=== PATIENT | female | born 1970 | race Caucasian/White ===

== ENCOUNTER 2020-03-09 08:05 | Outpatient (REF) | payer OTHER, SELFPAY ==
[2020-03-09 14:01] LABS: CT PCR NOT DETECTED (Not Detect.); NG PCR NOT DETECTED (Not Detect.)
[2020-03-10 13:32] LABS: BV Int Neg Control Negative (Negative); BV Int Pos Control Positive (Positive)
[2020-03-11 18:27] LABS: HPV mRNA E6/E7 Not Detected (Not Detected)
== END 2020-03-09 08:06 | disposition home or self-care (01) ==
LOC: HO.LAB 08:05
PROVIDERS: Visit Provider Obstetrics & Gynecology
DX: Z01.419 Encounter for gynecological examination (general) (routine) without abnormal findings (principal); Z11.3 Encounter for screening for infections with a predominantly sexual mode of transmission; Z11.51 Encounter for screening for human papillomavirus (HPV); N95.0 Postmenopausal bleeding; N95.1 Menopausal and female climacteric states
CPT/HCPCS: 87480; 87491; 87510; 87591; 87624; 87660; 88142

== ENCOUNTER 2020-03-17 13:29 | Outpatient (REF) | payer OTHER, SELFPAY ==
--- NOTE | 2020-03-17 13:32 | US_ITS ---
EXAMINATION: PELVIC ULTRASOUND CLINICAL INFORMATION: Postmenopausal bleeding COMPARISON: None TECHNIQUE: Transabdominal and transvaginal pelvic ultrasound was performed. Transvaginal exam was performed for better visualization of the uterus and ovaries. FINDINGS: The uterus is anteverted and anteflexed measures 8.4 x 4.2 x 4.8 cm in dimension. There is a 1.2 x 0.9 x 1.2 cm hypoechoic intramural lesion in the right upper uterine body suggestive of a fibroid. No other focal uterine lesion is seen. Endometrial thickness is normal estimated at 0.4 cm. There are nabothian cysts in the cervix. There is a 9 x 8 x 10 mm hypoechoic lesion in the cervix. It is uncertain whether this could represent a small fibroid or complex nabothian cyst. The right ovary is enlarged and measures 3.6 x 3.5 x 3.2 cm, volume 21 mL. There is a 2.9 x 2.8 x 3.3 cm hypoechoic lesion in the right ovary. The left ovary is not seen. There is no fluid in the pelvis. US/US pelvic complete IMPRESSION: Normal thickness endometrium. Small 1.2 x 0.9 x 1.2 cm upper right uterine body fibroid. Small simple appearing nabothian cysts in the cervix. 9 x 8 x 10 mm hypoechoic lesion in the cervix questionable for complex nabothian cyst or fibroid. Enlarged right ovary. 2.9 x 2.8 x 3.3 cm hypoechoic lesion in the right ovary questionable for complex cyst versus solid lesion. If the patient is perimenopausal, short-term follow-up pelvic ultrasound in several months to see if right ovarian finding persists would be recommended. Otherwise, this could be better characterized with pelvic MRI. Left ovary not seen.
== END 2020-03-17 13:30 | disposition home or self-care (01) ==
LOC: HO.US 13:29
PROVIDERS: PCP Internal Medicine; Visit Provider Obstetrics & Gynecology
DX: N95.0 Postmenopausal bleeding (principal)
CPT/HCPCS: 76830; 76856

== ENCOUNTER 2020-03-29 17:55 | Outpatient (REF) | payer OTHER, SELFPAY | END 2020-03-29 17:56 | disposition home or self-care (01) | LOC: HO.LNP 17:55 | PROVIDERS: Visit Provider Family Medicine | DX: Z20.828 Contact with and (suspected) exposure to other viral communicable diseases (principal) | CPT/HCPCS: U0003 ==

== ENCOUNTER → 2020-04-19 11:28 | Outpatient (BNVA) | payer OTHER, SELFPAY | PROVIDERS: PCP Internal Medicine; Visit Provider Obstetrics & Gynecology | DX: Z76.89 Persons encountering health services in other specified circumstances (principal) ==

== ENCOUNTER 2020-04-20 18:42 | Outpatient (REF) | payer OTHER, SELFPAY ==
--- NOTE | 2020-04-20 18:45 | MR_ITS ---
EXAMINATION: MR PELVIS WITHOUT AND WITH CONTRAST CLINICAL INFORMATION: Postmenopausal bleeding. Enlarged right ovary with mass on ultrasound. Left ovary not visualized. Probable fibroid. Further assessment with MRI. Age 49. COMPARISON: Ultrasound pelvis 03/17/2020. TECHNIQUE: MRI pelvis is performed with imaging in 3 planes. Axial images are obtained pre and post 10 mL Gadavist gadolinium contrast. FINDINGS: Uterus: The uterus is anteverted and normal in size measuring 6.8 x 4.2 x 4.8 cm. The endometrial thickness is under 4 mm. There is no fluid in uterine cavity. The junctional zone is normal. There is no visible fibroid. Uniform enhancement is seen following gadolinium with exception of some tiny nabothian cysts in the cervix. Adnexa: The left ovary is normal measuring 2.3 x 1.1 x 1.9 cm. There is no left adnexal mass. The right adnexa has a dominant mildly complicated circumscribed cyst measuring 3.8 x 3.0 x 3.3 cm. This shows low signal T1 and mildly heterogeneous high signal T2. Following gadolinium, there is a thin uniform smooth wall and no internal enhancement. There is no internal septation or peripheral thrombus or solid component. There is an adjacent right intraovarian dermoid cyst measuring 1.2 cm showing uniform high signal T2, decreased signal on T2 fat-suppressed sequence and no enhancement following contrast. No pelvic ascites or loculated fluid collection. Other: There is no bowel obstruction or inflammatory changes in bowel or mesentery. No pelvic or inguinal lymphadenopathy. No visible ankle or lower ventral hernia. Bone marrow signal normal. Urinary bladder unremarkable. MR/MR pelvis wo/w con IMPRESSION: 1. Uterus: No visible fibroid. No endometrial or junctional zone thickening. 2. Left ovary: Normal. 3. Right ovary: Mildly complicated circumscribed nonenhancing cyst 3.8 cm. Adjacent dermoid 1.2 cm. No pelvic ascites.
== END 2020-04-20 18:43 | disposition home or self-care (01) ==
LOC: HO.MRI 18:42
PROVIDERS: Visit Provider Obstetrics & Gynecology
DX: N83.9 Noninflammatory disorder of ovary, fallopian tube and broad ligament, unspecified (principal)
CPT/HCPCS: 72197; A9585

== ENCOUNTER → 2020-04-27 11:52 | Outpatient (BNVA) | payer OTHER, SELFPAY | PROVIDERS: PCP Internal Medicine; Visit Provider Physician Assistant | DX: Z76.89 Persons encountering health services in other specified circumstances (principal) ==

== ENCOUNTER → 2020-04-28 08:14 | Outpatient (BNVA) | payer OTHER, SELFPAY | PROVIDERS: PCP Internal Medicine; Visit Provider Physician Assistant | DX: Z76.89 Persons encountering health services in other specified circumstances (principal) ==

== ENCOUNTER → 2020-04-30 10:54 | Outpatient (BNVA) | payer OTHER, SELFPAY | PROVIDERS: Visit Provider Obstetrics & Gynecology | DX: Z76.89 Persons encountering health services in other specified circumstances (principal) ==

== ENCOUNTER → 2020-05-03 08:44 | Outpatient (BNVA) | payer OTHER, SELFPAY | PROVIDERS: Visit Provider Physician Assistant | DX: Z76.89 Persons encountering health services in other specified circumstances (principal) ==

== ENCOUNTER → 2020-05-04 08:29 | Outpatient (BNVA) | payer OTHER, SELFPAY | PROVIDERS: Visit Provider Physician Assistant | DX: Z76.89 Persons encountering health services in other specified circumstances (principal) ==

== ENCOUNTER → 2020-05-10 14:30 | Outpatient (BNVA) | payer OTHER, SELFPAY | PROVIDERS: Visit Provider Obstetrics & Gynecology | DX: Z76.89 Persons encountering health services in other specified circumstances (principal) ==

== ENCOUNTER 2020-05-11 09:45 | Outpatient (REF) | payer OTHER, SELFPAY ==
[2020-05-11 10:06] LABS: MANUAL DIFF FLAG NO
[2020-05-11 10:17] LABS: Basophils Percent Auto 0.5 % (0-2); Eosinophils Absolute Auto 0.2 X10*3/uL (0.0-0.4); Eosinophils Percent Auto 2.7 % (0-4); Hematocrit 43.2 % (37-47); Hemoglobin 13.8 g/dl (12.0-16.0); Imm Gran Abs Auto 0.04 X10*3/uL (0.00-0.03); Imm Gran Pct Auto 0.5 % (0.0-0.4); Lymphocytes Percent Auto 24.6 % (20-40); Mean Corpuscular HGB Conc 31.9 g/dl (31.0-35.0); Mean Corpuscular Hemoglobin 28.6 pg (27.0-33.0); Mean Corpuscular Volume 89.4 fL (80-98); Mean Platelet Volume 10.1 fL (9.4-12.3); Monocytes Absolute Auto 0.6 X10*3/uL (0.1-1.2); Monocytes Percent Auto 6.9 % (2-11); Neutrophils Absolute Auto 5.4 X10*3/uL (2.0-8.3); Neutrophils Percent Auto 64.8 % (45-73); Platelet Count 348 X10*3/uL (160-400); Red Blood Count 4.83 X10*6/uL (4.20-5.50); Red Cell Distribution Width 12.6 % (11.0-16.0); White Blood Count 8.3 X10*3/uL (4.8-10.8)
[2020-05-11 10:28] LABS: Blood Urea Nitrogen 15 mg/dL (9-16); Estimated Glomerular Filt Rate > 60; Lactate Dehydrogenase 215 U/L (122-220)
[2020-05-11 10:35] LABS: Alanine Aminotransferase 16 U/L (0-31); Alkaline Phosphatase 83 U/L (39-117); Anion Gap 9 (12-20); Aspartate Amino Transferase 19 U/L (5-31); Bilirubin Total 0.5 mg/dL (0.0-1.0); Blood Urea Nitrogen 15 mg/dL (9-16); Calcium 8.9 mg/dL (8.4-10.2); Carbon Dioxide 31 mmol/L (22-29); Chloride 103 mmol/L (96-108); Cholesterol 222 mg/dL; Estimated Glomerular Filt Rate > 60; Glucose Random 145 mg/dL (60-115); HDL Cholesterol 56 mg/dL; LDL Cholesterol Calculated 149 mg/dl; Potassium 4.3 mmol/l (3.3-5.1); Sodium 139 mmol/L (135-145); Total Protein 6.8 g/dL (6.5-8.0); Triglycerides 89 mg/dL
[2020-05-11 10:54] LABS: Thyroid Stimulating Hormone 1.69 uIU/mL (0.32-4.0)
[2020-05-11 11:02] LABS: HCG Quantitative 3 mIU/mL
[2020-05-13 12:27] LABS: Alpha Fetoprotein 4.4 ng/mL
== END 2020-05-11 09:46 | disposition home or self-care (01) ==
LOC: HO.LAB 09:45
PROVIDERS: Absent Provider Internal Medicine; PCP Internal Medicine; Visit Provider Obstetrics & Gynecology
DX: D36.9 Benign neoplasm, unspecified site (principal); N83.9 Noninflammatory disorder of ovary, fallopian tube and broad ligament, unspecified; R73.02 Impaired glucose tolerance (oral); E78.00 Pure hypercholesterolemia, unspecified
CPT/HCPCS: 36415; 80053; 80061; 82105; 82565; 83615; 84443; 84520; 84702; 85025

== ENCOUNTER → 2020-05-17 13:47 | Outpatient (BNVA) | payer OTHER, SELFPAY | PROVIDERS: Visit Provider Obstetrics & Gynecology | DX: Z76.89 Persons encountering health services in other specified circumstances (principal) | CPT/HCPCS: 99212 ==

== ENCOUNTER → 2020-06-03 08:04 | Outpatient (BNVA) | payer OTHER, SELFPAY | PROVIDERS: PCP Internal Medicine; Visit Provider Surgery | DX: Z76.89 Persons encountering health services in other specified circumstances (principal) ==

== ENCOUNTER → 2020-06-04 08:21 | Outpatient (BNVA) | payer OTHER, SELFPAY | PROVIDERS: PCP Internal Medicine; Visit Provider Dietitian, Registered | DX: Z76.89 Persons encountering health services in other specified circumstances (principal) ==

== ENCOUNTER 2020-06-07 08:30 | Outpatient (REF) | payer OTHER, SELFPAY ==
--- NOTE | 2020-06-07 | US_ITS ---
EXAMINATION: US COMPLETE ABDOMEN WITH LIVER ELASTOGRAPHY CLINICAL INFORMATION: Obesity. COMPARISON: None. TECHNIQUE: Real-time imaging of the abdominal viscera. Noninvasive ultrasound liver fibrosis assessment is performed using Katy ElastPQ point quantification shear wave elastography (pSWE) with a 5 MHz transducer. Multiple elastography samples are obtained. FINDINGS: PANCREAS: The visualized pancreatic head and body are normal in appearance. The remainder of the pancreas is obscured from visualization by the overlying bowel gas. ABDOMINAL AORTA: The proximal, middle, and distal aortic segments are normal in caliber. INFERIOR VENA CAVA: Visualized portions are normal. LIVER: Normal. The liver demonstrates normal size, contour and increased echogenicity. No focal lesion or intrahepatic biliary duct dilatation. The right lobe measures 15.4 cm in length. The left lobe measures 11.7 cm in length. There is a hepatopedal flow seen in the portal vein on Doppler exam. Shear wave elastography provides a median stiffness of 1.92 m/s (reference: normal median stiffness is 0.81 - 1.22 m/s). The IQR/median stiffness to assess sampling precision is 0.38 (reference: optimal IQR/median stiffness is under 0.3). GALLBLADDER: The gallbladder has been surgically removed. COMMON BILE DUCT: Normal in caliber measuring 0.5 cm in diameter. RIGHT KIDNEY: Normal. No hydronephrosis. No renal calculi or focal parenchymal lesions. The kidney measures 11.2 cm in maximum dimension. LEFT KIDNEY: Normal. No hydronephrosis. No renal calculi or focal parenchymal lesions. The kidney measures 11.8 cm in maximum dimension. SPLEEN: Normal. The spleen measures 10.4 cm in maximum dimension. FREE FLUID: None. US/US abdomen comp w elastography IMPRESSION: Diffuse hepatic steatosis with no focal lesion seen. Gallbladder surgically removed. The rest of the abdominal ultrasound is unremarkable. Elastography: [id number] fibrosis.
--- NOTE | 2020-06-07 08:35 | ECG_ITS ---
Test Reason : SOB Blood Pressure : / mmHG Vent. Rate : 068 BPM Atrial Rate : 068 BPM P-R Int : 144 ms QRS Dur : 070 ms QT Int : 382 ms P-R-T Axes : 000 018 007 degrees QTc Int : 406 ms Normal sinus rhythm Normal ECG No previous ECGs available Referred By: Noni Quiroga Electronically Signed By:JULIANE LOVETT
--- NOTE | 2020-06-07 09:30 | FL_ITS ---
EXAMINATION: XR GI SERIES CLINICAL INFORMATION: Obesity. COMPARISON: None. TECHNIQUE: Routine upper GI air-contrast study was performed in upright and lying position. FINDINGS: Following oral administration of thick barium and effervescent granules, there is normal propagation of bolus from the oral cavity, through the pharynx and esophagus and into the stomach without any evidence of obstruction, narrowing or stricture. On placing patient supine, there is a small hiatal hernia and mild gastroesophageal reflux. The mucosal pattern of the stomach, duodenal bulb and the CBD is normal. The course, caliber and peristalsis of the stomach and the duodenum are normal. There are surgical loren in the right upper quadrant from previous cholecystectomy. FLUOROSCOPY TIME: 1.6 minutes. DOSE AREA PRODUCT: 28.84 uGy-m2 (microgray-meter squared). FL/FL upper GI series IMPRESSION: Small hiatal hernia with moderate gastroesophageal reflux.
[2020-06-07 09:45] LABS: MANUAL DIFF FLAG NO
--- NOTE | 2020-06-07 09:46 | XR_ITS ---
EXAMINATION: XR CHEST CLINICAL INFORMATION: Shortness of breath COMPARISON: None TECHNIQUE: 2 views of the chest were obtained. FINDINGS: The cardiac and mediastinal contours are normal. The lungs are clear. There is no pleural effusion or pneumothorax. There is mild curvature of the midthoracic spine to the right and degenerative change. There is oral contrast in the stomach from recent upper GI. XR/XR chest 2V IMPRESSION: No evidence for acute disease in the chest.
[2020-06-07 09:54] LABS: Basophils Absolute Auto 0.1 X10*3/uL (0.0-0.2); Basophils Percent Auto 0.3 % (0-2); Eosinophils Absolute Auto 0.1 X10*3/uL (0.0-0.4); Eosinophils Percent Auto 0.7 % (0-4); Hematocrit 44.9 % (37-47); Hemoglobin 14.4 g/dl (12.0-16.0); Imm Gran Abs Auto 0.13 X10*3/uL (0.00-0.03); Imm Gran Pct Auto 0.8 % (0.0-0.4); Lymphocytes Absolute Auto 2.6 X10*3/uL (1.2-4.9); Mean Corpuscular HGB Conc 32.1 g/dl (31.0-35.0); Mean Corpuscular Hemoglobin 28.4 pg (27.0-33.0); Mean Corpuscular Volume 88.6 fL (80-98); Mean Platelet Volume 10.6 fL (9.4-12.3); Monocytes Percent Auto 6.2 % (2-11); Neutrophils Absolute Auto 11.6 X10*3/uL (2.0-8.3); Platelet Count 393 X10*3/uL (160-400); Red Blood Count 5.07 X10*6/uL (4.20-5.50); White Blood Count 15.4 X10*3/uL (4.8-10.8)
[2020-06-07 10:17] LABS: Estimated Average Glucose 146 mg/dL; Hemoglobin A1c % 6.7 %
[2020-06-07 10:24] LABS: C Reactive Protein 1.02 mg/dL (< or = 0.50); Cholesterol 216 mg/dL; HDL Cholesterol 58 mg/dL; Iron 70 mcg/dL (30-160); LDL Cholesterol Calculated 137 mg/dl; Percent Iron Saturation 18 % (15-50); Total Iron Binding Capacity 381 mcg/dL (228-428); Triglycerides 106 mg/dL; Unsaturated Iron Binding 311 ug/dL
[2020-06-07 10:46] LABS: Ferritin 84 ng/mL (10-250); TSH reflex Free T4 2.47 mIU/mL (0.32-4.0); Vitamin D 25-OH Total 29.2 ng/mL (>30)
[2020-06-07 10:54] LABS: Folate 10.5 ng/mL (> or = 4.0); Vitamin B12 484 pg/mL (200-900)
[2020-06-08 17:33] LABS: Insulin Level Total 14.9 uIU/mL
[2020-06-09 10:42] LABS: Calcium (PTHI) 9.5 mg/dL (8.6-10.4); PTHI 45 pg/mL (14-64)
[2020-06-10 00:53] LABS: Zinc 102 mcg/dL (60-130)
[2020-06-11 12:37] LABS: Vitamin B1 10 nmol/L (8-30)
[2020-06-12 16:07] LABS: Vitamin A 57 mcg/dL (38-98)
== END 2020-06-07 08:31 | disposition home or self-care (01) ==
LOC: HO.US 08:30
PROVIDERS: Physician Assistant; Visit Provider Surgery
DX: R06.02 Shortness of breath (principal); E66.01 Morbid (severe) obesity due to excess calories; E78.00 Pure hypercholesterolemia, unspecified; K21.9 Gastro-esophageal reflux disease without esophagitis; R73.02 Impaired glucose tolerance (oral)
CPT/HCPCS: 36415; 71046; 74240; 76705; 76981; 80061; 82306; 82607; 82728; 82746; 83036; 83525; 83540; 83970; 84425; 84443; 84590; 84630; 85025; 86140; 93005

== ENCOUNTER → 2020-06-08 11:25 | Outpatient (BNVA) | payer OTHER, SELFPAY | PROVIDERS: PCP Internal Medicine; Visit Provider Obstetrics & Gynecology ==

== ENCOUNTER → 2020-06-21 08:44 | Outpatient (BNVA) | payer OTHER, SELFPAY | PROVIDERS: PCP Internal Medicine; Visit Provider Dietitian, Registered ==

== ENCOUNTER → 2020-06-23 08:21 | Outpatient (BNVA) | payer OTHER, SELFPAY | PROVIDERS: PCP Internal Medicine; Visit Provider Surgery ==

== ENCOUNTER → 2020-07-12 08:53 | Outpatient (BNVA) | payer OTHER, SELFPAY | PROVIDERS: PCP Internal Medicine; Visit Provider Dietitian, Registered ==

== ENCOUNTER → 2020-07-21 08:13 | Outpatient (BNVA) | payer OTHER, SELFPAY | PROVIDERS: PCP Internal Medicine; Visit Provider Surgery ==

== ENCOUNTER 2020-07-22 08:45 | Day surgery (SDC) | payer OTHER, SELFPAY ==
--- NOTE | 2020-07-21 19:29 | MHC.SHP ---
Pre-Procedural Eval Section A The patient is an INPATIENT: No The History & Physical has been completed within 30 days and I have reviewed it.: Yes Section B Chief Complaint: reflux Details of Present Illness: GERD Relevant Family History (Specify if Yes): No Relevant Social History: None Present Medications: see Short Stay Collaborative assessment Medical History: No relevant PMH History of Previous Operations: Relevant previous surgery/procedure and date(s) (Lap band and lap band removal) Allergies: Allergies Allergy/AdvReac Type Severity Reaction Status Date / Time No Known Allergies Allergy Verified 05/17/20 15:42 [No Known Allergies*] Review of Systems Sugical H&P ROS: Negative: Constitution, Cardiovascular, Respiratory, Neurological, Psychiatric, Hem-Onc, Allergic/Immunologic, Gastrointestinal, Genitourinary, Musculoskeletal, Integumentary, Endocrine and Eyes/Ears/Nose/Throat Exam Surgical H&P Exam: Normal: HEENT, Normal: Heart, Normal: Lungs, Normal: Extremities, Normal: Abdomen, Normal: Skin and Normal: Neurological Plan Diagnosis/Plan: Unchanged (EGD to assess GERD and rule out esophagitis) I have reviewed the history and physical and performed a pertinent physical examination on my patient. No changes have occurred unless specified.
--- NOTE | 2020-07-22 08:58 | HO.ANESPROP2 ---
[facility] Active Problems Active Problems: All Active Problems (Updated 06/15/20 @ 15:08 by Yael Hoskins MD) Type 2 diabetes mellitus with hyperglycemia (Acute) Post-menopausal bleeding (Acute) Menopausal vaginal dryness (Acute) Seasonal allergies (Acute) Sinus infection (Acute) Impaired glucose tolerance (Acute) Knee pain, bilateral (Acute) Morbid obesity (Acute) Hypercholesterolemia (Acute) Obesity (Acute) GERD (gastroesophageal reflux disease) (Acute) Past Medical History Medical History Asthma 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 GERD (gastroesophageal reflux disease) Hypercholesterolemia Lab test negative for COVID-19 virus Morbid obesity Obesity Osteoarthritis of right knee Right carpal tunnel syndrome Vitamin D deficiency Family History Family History Mother Diabetes HTN (hypertension) High cholesterol Father Heart disease Surgical History Surgical History History of cholecystectomy Hx of section Hx of tubal ligation Social History Social History Alcohol intake: never Smoking Status: Former smoker Second Hand Smoke Exposure: No Advance Directives: No Advance Directives Information Provided: Yes Sexual orientation: Straight/Heterosexual Gender identity: female Meds Allergies Allergy/AdvReac Type Severity Reaction Status Date / Time No Known Allergies Allergy Verified 05/17/20 15:42 [No Known Allergies*] Active Medications: Current Medications Generic Name Dose Route Start Last Admin Trade Name Freq PRN Reason Stop Dose Admin Lactated Ringer's 1,000 mls @ 80 mls/hr 07/21/20 19:30 Lr IVCONT .[id number] [facility] Home Medications Medication Instructions Recorded Confirmed Last Taken Type ascorbic acid (vitamin C) 500 mg 500 mg PO DAILY 03/09/20 06/15/20 Unknown History capsule cholecalciferol (vitamin D3) 25 25 mcg PO DAILY 03/09/20 06/15/20 Unknown History mcg (1,000 unit) capsule loratadine 10 mg tablet 10 mg PO DAILY 03/25/20 06/15/20 Unknown History omeprazole 20 mg capsule,delayed 20 mg PO DAILY 03/25/20 06/15/20 Unknown History release gabapentin 100 mg PO DAILY 01/15/21 01/26/21 Unknown History Exam Exam Date and Time: July 22, 2020 0858 Airway Mallampati Class: II TM Dist: >3cm Neck ROM: Full Loose/Missing/Broken Teeth: No Heart: [id number] Lungs: cta B/L Assessment and Plan Assessment Anesthesia Assessment: Anesthesia Plan Discussed, Smoking Cess. Discussed and Chart Reviewed Final Anesthetic Review NPO: Yes ASA Class: II Final Preanesthetic Review: No Changes in Pt Med Stat, Meds/Allgs Chart Reviewed, Consent Obtained/Reviewed and Anes Risks/Benef Reviewed Patient Risk: Low Procedure Risk: Low Assessment/Block/Sedation in SS: Assess/Block/Sedation-SS Anesthetic Plan Anesthetic Plan: MAC: and Agree w/ Assess. and Plan Disposition: Standard PACU
[2020-07-22 09:03] VITALS: BP 143/90; PULSE 73; RESP 18; TEMP 36.7; O2SAT 99
[2020-07-22 09:04] VITALS: BMI 100.4
[2020-07-22] MEDS: Lactated Ringers 1,000 ML 80 ML IVCONT (09:10)
[2020-07-22 09:39] VITALS: BP 121/74; PULSE 77; RESP 18; TEMP 36.4; O2SAT 99
--- NOTE | 2020-07-22 09:42 | P.BOP_ITS ---
Brief Operative Note Date of Service: 07/22/20 Pre-op diagnosis: GERD, s/p lap band Post-op diagnosis: same (Esophagitis grade II) Procedure: PREOPERATIVE DIAGNOSIS: GERD, s/p lap band POSTOPERATIVE DIAGNOSIS: Same as above. Esophagitis grade II and small hiatal hernia PROCEDURE: Atwokyzh-[id number]-[id number] with biopsies Surgeon: Jacob Joe M.D.. Ph.D. Contact And Service Clerks Supervisor: None Anesthesia: IV sedation Estimated blood loss: Minimal FINDINGS AND PROCEDURE: OPERATIVE INDICATIONS: The patient is a 49 year old female known to me who underwent a laparoscopic gastric band elsewhere. The patient had poor weight loss so far and has been complaining of GERD. The band has been removed. Based on this information I recommended an upper endoscopy to evaluate the patient's symptoms. Risks and complications of the surgery were discussed with the patient in advance particularly the possibility of perforation or bleeding that may require surgical intervention. The patient understood the risks and was in agreement with the plan. PROCEDURE: After informed consent was obtained by the patient, the patient was transferred to the Operating Room and was placed in the supine position. After successful induction of IV sedation, a mouth block was inserted and the patient was placed in the left lateral decubitus position. An upper endoscopy was performed next, the oropharynx and esophagus appeared wi thin the normal limits. There was 1-2cm hiatal hernia. The z-line was irregular with tongues of gastric mucosa protruding to the esophagus in a 25-50% of circumference. The stomach was entered and it appeared to be of normal size. There was no gastritis and no ulcer. The scope was advanced into the duodenum which appeared to be normal as well. Retroflexion was performed and again no band related stricture was seen. At that point the duodenum and the stomach were decompressed and the scope was withdrawn from the patient's mouth. Biopsies were obtained from the GE junction (x3), distal esophagus (x2), mid gastric body (x1) and antrum (x1). No bleeding was noted from any of the biopsy sites. The patient was awaken and was transferred in stable condition to the Recovery Room for further care. I was present and performed all steps of the procedure. There were no residents to assist with this case. Jacob Joe M.D., Ph.D. Surgeon: Estevan Joe MD Anesthesia: MAC Estimated blood loss (mL): 0 IV fluids (mL): 300 Urine output (mL): 0 (No Nettles to record) Pathology: other (1) GEJ x3, distal esophagus x2, mid gastric body x1, antrum x1) Condition: stable Disposition: PACU
[2020-07-22 09:43] VITALS: PULSE 68; RESP 18; O2SAT 99
[2020-07-22 09:54] VITALS: BP 134/80; PULSE 63; RESP 18; O2SAT 100
--- NOTE | 2020-07-22 10:02 | PC.NURSE ---
0958 MANUEL PO NO NV NOTED OCC COUGH AWAKE ALERT MONITORS AND IVF DCD ASST OOB CH STEADY IV DCD TIP INTACT PRESSURE AND DRESSING TO SITE DRESSED SLEF AT BS CALL GONSALEZ IN REACH. PLAN TO AMB TO DC AREA
== END 2020-07-22 10:20 ==
LOC: HO.SSS 08:45
PROVIDERS: PCP Internal Medicine; Visit Provider Surgery
PROC: 0DJ08ZZ Inspection of Upper Intestinal Tract, Via Natural or Artificial Opening Endoscopic (ICD-10-PCS; CPT 43235; principal; 2020-07-22 13:00)
DX: K21.00 Gastro-esophageal reflux disease with esophagitis, without bleeding (principal); K29.50 Unspecified chronic gastritis without bleeding; B96.81 Helicobacter pylori [H. pylori] as the cause of diseases classified elsewhere; Z98.84 Bariatric surgery status; K44.9 Diaphragmatic hernia without obstruction or gangrene; E66.01 Morbid (severe) obesity due to excess calories; J45.909 Unspecified asthma, uncomplicated; E55.9 Vitamin D deficiency, unspecified; E11.65 Type 2 diabetes mellitus with hyperglycemia; Z79.899 Other long term (current) drug therapy; Z90.49 Acquired absence of other specified parts of digestive tract; Z87.891 Personal history of nicotine dependence
CPT/HCPCS: 43239; 88305; 88342; J2250

== ENCOUNTER → 2020-08-11 08:13 | Outpatient (BNVA) | payer OTHER, SELFPAY | PROVIDERS: PCP Internal Medicine; Visit Provider Surgery ==

== ENCOUNTER → 2020-09-03 08:19 | Outpatient (BNVA) | payer OTHER, SELFPAY | PROVIDERS: PCP Internal Medicine; Visit Provider Surgery ==

== ENCOUNTER → 2020-09-17 08:49 | Outpatient (BNVA) | payer OTHER, SELFPAY | PROVIDERS: PCP Internal Medicine; Visit Provider Surgery ==

== ENCOUNTER 2020-09-23 06:19 | Inpatient (IN) | payer OTHER, SELFPAY ==
[2020-09-17 09:37] VITALS: BMI 42.6
[2020-09-18 09:42] LABS: MANUAL DIFF FLAG NO
[2020-09-18 09:45] LABS: Basophils Absolute Auto 0.1 X10*3/uL (0.0-0.2); Basophils Percent Auto 0.6 % (0-2); Eosinophils Absolute Auto 0.2 X10*3/uL (0.0-0.4); Eosinophils Percent Auto 2.3 % (0-4); Hematocrit 42.5 % (37-47); Hemoglobin 13.5 g/dl (12.0-16.0); Imm Gran Abs Auto 0.02 X10*3/uL (0.00-0.03); Imm Gran Pct Auto 0.2 % (0.0-0.4); Lymphocytes Absolute Auto 2.1 X10*3/uL (1.2-4.9); Lymphocytes Percent Auto 23.5 % (20-40); Mean Corpuscular HGB Conc 31.8 g/dl (31.0-35.0); Mean Corpuscular Hemoglobin 28.9 pg (27.0-33.0); Mean Platelet Volume 10.7 fL (9.4-12.3); Monocytes Absolute Auto 0.7 X10*3/uL (0.1-1.2); Neutrophils Absolute Auto 5.8 X10*3/uL (2.0-8.3); Neutrophils Percent Auto 65.4 % (45-73); Platelet Count 332 X10*3/uL (160-400); Red Blood Count 4.67 X10*6/uL (4.20-5.50); Red Cell Distribution Width 12.9 % (11.0-16.0); White Blood Count 8.9 X10*3/uL (4.8-10.8)
[2020-09-18 09:51] LABS: INTERNATIONAL NORM RATIO 0.9 (0.9-1.1); Prothrombin Time 11.2 SEC (10.8-13.0)
[2020-09-18 10:18] LABS: Alanine Aminotransferase 13 U/L (0-31); Albumin Level 3.9 g/dL (3.5-5.0); Alkaline Phosphatase 85 U/L (39-117); Anion Gap 14 (12-20); Aspartate Amino Transferase 18 U/L (5-31); Bilirubin Total 0.4 mg/dL (0.0-1.0); Blood Urea Nitrogen 14 mg/dL (9-16); C Reactive Protein 1.01 mg/dL (< or = 0.50); Calcium 8.9 mg/dL (8.4-10.2); Carbon Dioxide 27 mmol/L (22-29); Chloride 104 mmol/L (96-108); Cholesterol 220 mg/dL; Creatinine Clr Calc Pharmacy 109.3; Estimated Glomerular Filt Rate > 60; Glucose Random 132 mg/dL (60-115); HDL Cholesterol 48 mg/dL; LDL Cholesterol Calculated 154 mg/dl; Potassium 4.4 mmol/L (3.3-5.1); Sodium 141 mmol/L (135-145); Total Protein 6.6 g/dL (6.5-8.0); Triglycerides 94 mg/dL
[2020-09-18 10:31] LABS: Estimated Average Glucose 120 mg/dL; Hemoglobin A1c % 5.8 %
[2020-09-18 10:41] LABS: TSH reflex Free T4 2.18 uIU/mL (0.32-4.0)
[2020-09-20 17:12] LABS: Insulin Level Total 10.5 uIU/mL
--- NOTE | 2020-09-22 09:43 | P.CONAN_ITS ---
Documented by User: Connie Reyes 09/22/20 09:48 HPI - Anesthesia Eval Consult details Narrative: 49yo F for Gastrectomy Sleeve s/p EGD with TIVA 07/2020 PMF Active Problems Active Problems: All Active Problems (Updated 09/17/20 @ 09:41 by Sondra Hernandez) Post-menopausal bleeding (Acute) Menopausal vaginal dryness (Acute) Seasonal allergies (Acute) Sinus infection (Acute) Obesity (Acute) Impaired glucose tolerance (Acute) Knee pain, bilateral (Acute) Type 2 diabetes mellitus with hyperglycemia (Acute) H. pylori infection (Acute) Allergic rhinitis (Acute) Morbid obesity (Acute) Hypercholesterolemia (Acute) GERD (gastroesophageal reflux disease) (Acute) Past Medical History Medical History (Updated 09/23/20 @ 08:50 by Debby Dias) Arthritis Asthma 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 COVID-19 vaccine administered Diabetes GERD (gastroesophageal reflux disease) History of postoperative nausea Hypercholesterolemia Morbid obesity ATUL (obstructive sleep apnea) Osteoarthritis of right knee Right carpal tunnel syndrome Vitamin D deficiency Family History Family History Mother Diabetes HTN (hypertension) High cholesterol Father Heart disease Surgical History Surgical History History of cholecystectomy History of esophagogastroduodenoscopy (EGD) Hx of section Hx of laparoscopic gastric banding Hx of tubal ligation Social History Social History Are you a primary customer care assistant to a significant other at home: No Do you presently have visiting nurse or other home services: No Smoking Status: Former smoker Tobacco Type: Cigarette Years Smoked: 25 Smoked in Last 30 Days: No Smoking Quit Date: 2008 Second Hand Smoke Exposure: No Use of substances other than those prescribed or required for medical reasons: No Have you been hit, kicked, punched, or otherwise hurt by someone within the past year? If so, by whom?: No Are you DNR?: No Advance Directives Information Provided: No Recently lost weight without trying: No Eating poorly because of decreased appetite: No Nutrition Risks: No Nutritional Risk Patient : No Poor oral hygiene: No Sexual orientation: Straight/Heterosexual Gender identity: female Meds Allergies Allergy/AdvReac Type Severity Reaction Status Date / Time metformin AdvReac Intermediate nausea Verified 09/23/20 06:15 Home Medications Medication Instructions Recorded Confirmed Last Taken Type ascorbic acid (vitamin C) 500 mg 500 mg PO DAILY 03/09/20 09/17/20 Unknown History capsule cholecalciferol (vitamin D3) 25 25 mcg PO DAILY 03/09/20 09/17/20 Unknown History mcg (1,000 unit) capsule omeprazole 20 mg capsule,delayed 20 mg PO DAILY PRN 03/25/20 09/17/20 Unknown History release gabapentin 100 mg PO DAILY 06/04/20 09/17/20 Unknown History albuterol sulfate [ProAir HFA] 2 puff INHALATION Q4-6H PRN 09/17/20 09/17/20 Unknown History fluticasone propionate 1 spray INTRANASAL DAILY PRN 09/17/20 09/17/20 Unknown History meloxicam 15 mg PO DAILY PRN 09/17/20 09/17/20 Unknown History Exam Exam Date and Time: September 22, 2020 0943 Height,Weight and Vital Signs: Height 5 ft 2.5 in Weight 107.501 kg Pertinent Lab Results Pertinent Lab Results: Laboratory Tests 09/18/20 09/18/20 09/18/20 09:10 09:10 09:10 WBC 8.9 RBC 4.67 Hgb 13.5 Hct 42.5 MCV 91.0 MCH 28.9 MCHC 31.8 RDW 12.9 Plt Count 332 MPV 10.7 Immature Gran % (Auto) 0.2 Neut % (Auto) 65.4 Lymph % (Auto) 23.5 Mathews % (Auto) 8.0 Eos % (Auto) 2.3 Baso % (Auto) 0.6 Lymph # (Auto) 2.1 Mathews # (Auto) 0.7 Eos # (Auto) 0.2 Baso # (Auto) 0.1 Abs Immat Gran (auto) 0.02 Absolute Neuts (auto) 5.8 Absolute Nucleated RBC 0.000 Nucleated RBC % (auto) 0.0 PT 11.2 INR 0.9 APTT 33.0 Sodium 141 Potassium 4.4 Chloride 104 Carbon Dioxide 27 Anion Gap 14 BUN 14 Creatinine 0.71 Estim Creat Clear Calc 109.3 Estimated GFR > 60 Random Glucose 132 H Estimat Average Glucose Hemoglobin A1c % Total Insulin Calcium 8.9 Total Bilirubin 0.4 AST 18 ALT 13 Alkaline Phosphatase 85 C-Reactive Protein 1.01 H Total Protein 6.6 Albumin 3.9 Triglycerides 94 Cholesterol 220 LDL Cholesterol, Calc 154 HDL Cholesterol 48 TSH 2.18 Blood Type Antibody Screen 09/18/20 09/18/20 09/18/20 09:10 09:10 09:10 WBC RBC Hgb Hct MCV MCH MCHC RDW Plt Count MPV Immature Gran % (Auto) Neut % (Auto) Lymph % (Auto) Mathews % (Auto) Eos % (Auto) Baso % (Auto) Lymph # (Auto) Mathews # (Auto) Eos # (Auto) Baso # (Auto) Abs Immat Gran (auto) Absolute Neuts (auto) Absolute Nucleated RBC Nucleated RBC % (auto) PT INR APTT Sodium Potassium Chloride Carbon Dioxide Anion Gap BUN Creatinine Estim Creat Clear Calc Estimated GFR Random Glucose Estimat Average Glucose 120 Hemoglobin A1c % 5.8 Total Insulin 10.5 Calcium Total Bilirubin AST ALT Alkaline Phosphatase C-Reactive Protein Total Protein Albumin Triglycerides Cholesterol LDL Cholesterol, Calc HDL Cholesterol TSH Blood Type A Positive Antibody Screen NEGATIVE Narrative Narrative: EKG 05/2020 Vent. Rate : 068 BPM Atrial Rate : 068 BPM P-R Int : 144 ms QRS Dur : 070 ms QT Int : 382 ms P-R-T Axes : 000 018 007 degrees QTc Int : 406 ms Normal sinus rhythm Normal ECG No previous ECGs available Assessment and Plan Assessment Anesthesia Assessment: Chart Reviewed Documented by User: Debby Dias 09/23/20 08:52 [facility] Past Medical History Medical History (Updated 09/23/20 @ 08:50 by Debby Dias) Arthritis Asthma 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 COVID-19 vaccine administered Diabetes GERD (gastroesophageal reflux disease) History of postoperative nausea Hypercholesterolemia Morbid obesity ATUL (obstructive sleep apnea) Osteoarthritis of right knee Right carpal tunnel syndrome Vitamin D deficiency Family History Family History Mother Diabetes HTN (hypertension) High cholesterol Father Heart disease Family history of problems with anesthesia: No Surgical History Surgical History History of cholecystectomy History of esophagogastroduodenoscopy (EGD) Hx of section Hx of laparoscopic gastric banding Hx of tubal ligation History of Problems with Anesthesia: No Social History Social History Are you a primary customer care assistant to a significant other at home: No Do you presently have visiting nurse or other home services: No Smoking Status: Former smoker Tobacco Type: Cigarette Years Smoked: 25 Smoked in Last 30 Days: No Smoking Quit Date: 2008 Second Hand Smoke Exposure: No Use of substances other than those prescribed or required for medical reasons: No Have you been hit, kicked, punched, or otherwise hurt by someone within the past year? If so, by whom?: No Are you DNR?: No Advance Directives Information Provided: No Recently lost weight without trying: No Eating poorly because of decreased appetite: No Nutrition Risks: No Nutritional Risk Patient : No Poor oral hygiene: No Sexual orientation: Straight/Heterosexual Gender identity: female Meds Allergies Allergy/AdvReac Type Severity Reaction Status Date / Time metformin AdvReac Intermediate nausea Verified 09/23/20 06:15 Home Medications Medication Instructions Recorded Confirmed Last Taken Type ascorbic acid (vitamin C) 500 mg 500 mg PO DAILY 03/09/20 09/17/20 Unknown History capsule cholecalciferol (vitamin D3) 25 25 mcg PO DAILY 03/09/20 09/17/20 Unknown History mcg (1,000 unit) capsule omeprazole 20 mg capsule,delayed 20 mg PO DAILY PRN 03/25/20 09/17/20 Unknown History release gabapentin 100 mg PO DAILY 06/04/20 09/17/20 Unknown History albuterol sulfate [ProAir HFA] 2 puff INHALATION Q4-6H PRN 09/17/20 09/17/20 Unknown History fluticasone propionate 1 spray INTRANASAL DAILY PRN 09/17/20 09/17/20 Unknown History meloxicam 15 mg PO DAILY PRN 09/17/20 09/17/20 Unknown History Exam Height,Weight and Vital Signs: Vital Signs Temp Pulse Resp BP Pulse Ox 09/23/20 06:22 98.4 F 81 16 106/69 97 Pertinent Lab Results Pertinent Lab Results: Laboratory Results - last 24 hr 09/23/20 09/23/20 06:15 06:34 POC Glucose 100 COVID-19 (DANNA) Negative COVID-19 Clin Com See Note Airway Mallampati Class: II TM Dist: >3cm Neck ROM: Full Heart: RRR Lungs: CTAB Assessment and Plan Assessment Anesthesia Assessment: Anesthesia Plan Discussed and Chart Reviewed Final Anesthetic Review NPO: Yes ASA Class: III Final Preanesthetic Review: No Changes in Pt Med Stat, Meds/Allgs Chart Reviewed, Consent Obtained/Reviewed and Anes Risks/Benef Reviewed Patient Risk: Intermediate Procedure Risk: Intermediate Assessment/Block/Sedation in SS: Assess/Block/Sedation-SS Anesthetic Plan Anesthetic Plan: GA Disposition: Inp. Admit - Standard Bed
--- NOTE | 2020-09-22 20:38 | MHC.SHP ---
Pre-Procedural Eval Section A The patient is an INPATIENT: Yes The History & Physical has been completed within 30 days and I have reviewed it.: No Section B Chief Complaint: morbid obesity Details of Present Illness: obesity Relevant Family History (Specify if Yes): No Relevant Social History: None Present Medications: see Short Stay Collaborative assessment Medical History: No relevant PMH History of Previous Operations: Relevant previous surgery/procedure and date(s) (lap band and removal) Allergies: Allergies Allergy/AdvReac Type Severity Reaction Status Date / Time metformin AdvReac Intermediate nausea Verified 09/17/20 11:15 Review of Systems Sugical H&P ROS: Negative: Constitution, Cardiovascular, Respiratory, Neurological, Psychiatric, Hem-Onc, Allergic/Immunologic, Gastrointestinal, Genitourinary, Musculoskeletal, Integumentary, Endocrine and Eyes/Ears/Nose/Throat Exam Surgical H&P Exam: Normal: HEENT, Normal: Heart, Normal: Lungs, Normal: Extremities, Normal: Abdomen, Normal: Skin and Normal: Neurological Plan Diagnosis/Plan: Unchanged I have reviewed the history and physical and performed a pertinent physical examination on my patient. No changes have occurred unless specified.
[2020-09-23] VITALS (20 sets, daily range): BP systolic 101–202; BP diastolic 69–115; PULSE 61–95; RESP 10–20; TEMP 36.2–36.9; O2SAT 95–100
[2020-09-23 06:41] LABS: Glucose, Whole Blood 100 mg/dL (60-115)
[2020-09-23 06:42] LABS: COVID-19 Test Negative (Negative)
[2020-09-23] MEDS: Lactated Ringers 1,000 ML 999 ML IV (06:53)
[2020-09-23] MEDS: Lactated Ringers 1,000 ML 100 ML IVCONT (06:53)
[2020-09-23] MEDS: Scopolamine 1.5 MG PATCH.TD.3 TRANSDERMA (06:56)
--- NOTE | 2020-09-23 11:13 | P.BOP_ITS ---
Brief Operative Note Date of Service: 09/23/20 Pre-op diagnosis: Morbid obesity with comorbidities Post-op diagnosis: same (extensive adhesions & diaphragmatic hernia) Procedure: INITIAL PATIENT BMI ON PRESENTATION AT OUR OFFICE: 46.5 kg/m2 LAST BMI BEFORE SURGERY: 43.7 kg/m2 COMORBIDITIES: GERD, diaphragmatic hernia, esophagitis, hyperlipidemia, prediabetes, DJD, liver steatosis, liver fibrosis The patient participated in an intensive weekly lifestyle intervention and exercise program during which the patient has lost between the initial office visit and the last preoperative visit 21.2 lbs, or 8.2% of initial actual body weight. The patient met the BMI-criteria for bariatric surgery based on the BMI on initial presentation. The patient should not be penalized for achieving such weight loss because it is not sustainable long-term without surgical intervention and it was achieved in preparation for bariatric surgery under my direction and based on my published research ([email or web address] and [email or web address]) that a 10% preoperative weight loss improves long-term weight loss after surgery and reduces perioperative complications. Insurance carriers such as [facility] have endorsed my recommendations and have included in their policies criteria to include a 10% preoperative weight loss requirement. PROCEDURE: Esophago-gastroscopy, laparoscopic repair of incarcerated diaphragmatic hernia, laparoscopic lysis of adhesions, capsulectomy, laparoscopic sleeve gastrectomy and laparoscopic gastropexy INDICATIONS: This is a 49 year-old female who was electively scheduled for laparoscopic, possibly open sleeve gastrectomy. The risks and complications of the procedure were discussed with the patient in advance, particularly the possibility of ; pulmonary embolism; staple line leak; bleeding; GERD; cardiac, pulmonary, or renal complications; as well as long-term problems such as insufficient weight loss, vitamin deficiency, strictures, or ulcers. The patient understood all the risks, and was in agreement to proceed with surgery. DESCRIPTION OF PROCEDURE: After informed consent was obtained from the patient, the patient was given preoperative antibiotics, and was transferred to the operating room. After successful induction of general anesthesia, pneumatic compressive devices were placed on both lower extremities. An upper endoscopy was performed next. The oropharynx and esophagus appeared to be within normal limits. There was a diaphragmatic hernia present of moderate size consistent with the findings of the preoperative upper GI. The stomach was entered. Then after all fluid and air were suctioned and the stomach was fully decompressed, the scope was withdrawn and secured in the mid esophagus. The patient was then prepped and draped in the usual sterile manner, and abdominal access was established at the right upper quadrant with the Roni technique. A 12 mm blunt port was inserted, and the abdomen was insufflated with CO2 to a pressure of 15 mmHg. Under direct visualization, additional ports were placed, specifically two 5 mm Versi-step ports to the left upper quadrant, and a 5 mm Versi-Step port to the right upper quadrant. 1% lidocaine plan was used to infiltrate all port sites as well as all fascia defects. Following that, the patient was placed in a steep reverse Trendelenburg position. An additional 5 mm port was placed to the right flank for the Mediflex retractor that was used to retract the left lobe of the liver. There were adhesions between the undersurface of the left lobe of the liver and the anterior stomach. Those were lysed with the Thunderbeat. The liver retractor was re-positioned to expose the hiatus. The gastro-esophageal fat pad was opened with the ultrasonic device (Thunderbeat, Olympus) and the anterior esophagus and hiatus were exposed. The gastro-gastric wrap from the previous lap band procedure was taken down completely using the Thunderbear. The previous permanent sutures were identified and divided. In addition a capsulectomy of the capsule of previous band was also performed to prevent any functional narrowing intraluminally. The angle of His was opened with the ultrasonic device the fundus of the stomach from any diaphragmatic and splenic attachments. I then opened the gastrocolic ligament between the transverse colon and the greater curvature of the stomach with the ultrasonic device to enter the lesser sac and facilitate the ligation of the short gastric vessels. I started at a mid-point along the greater curvature and using the Thunderbeat, all short gastric vessels were divided all the way to the angle of His until the left tian was completely dissected at its entirety. I then divided the gastro-colic ligament distally to a distance of about 3-4 cm proximal to the esophagus. There was an obvious significant-sized hiatal hernia. In addition it was evident that a previous inadequate diaphragmatic hernia was performed with posterior retro-esophageal sutures. Those were divided. In addition, it appeared to be a running suture along the right tian and anterior to the esophagis. Dissection was difficult due to scarring and previous sutures. I continued dissecting along the hiatus toward the left tian and the angle of His. I fully mobilized the fat pad that was incarcerated in the hernia. I then continued by dissecting even further into the posterior retro-esophageal space all the way to the angle of His. I continued to mobilize the esophagus into the mediastinum circumferentially. Both vagal nerves were seen and preserved. At that point, I was able to have at least 3 to 5 cm of esophagus into the abdomen. After I completely mobilized the esophagus from both the left and right tian and I had a good mobilization of the esophagus circumferentially, I closed the hernia defect with three interrupted #0 Surgidac sutures using the Endo Stitch device, two of which were placed posterior and one anterior to the esophagus. There were extensive retrogastric adhesions which were all lysed. Adhesiolysis was difficult and took 90 minutes to complete with a total operative of 3 hours. The stomach was then divided transversely with one Endo MAINE-45 and four MAINE-60 articulating orange loads using the AEON stapler and loads. Every effort was made that the gastric sleeve had a tubular shape and an even caliber throughout. Once the sleeve resection was completed, the staple line of the gastric sleeve was reinforced with Hemoclips. The resected stomach was retrieved without difficulty from the Roni port. A gastropexy was then performed in order to prevent postoperative GERD and partial gastric volvulus. Several interrupted 2.0 Surgidac sutures were placed between the sleeve's staple line and the previously divided greater omentum and gastro-colic ligament using the Endo-Stitch device. An upper endoscopy was performed. There was no narrowing at the GE junction. The scope was easily advanced all the way to the pylorus which was clearly visualized. There was no narrowing anywhere and the sleeve's caliber was even throughout. The sleeve's staple line was inspected and there was no evidence of ischemia, bleeding or dehiscence. At that point the gastroscope was withdrawn from the patient?s mouth while we were decompressing the bowel and the stomach from any remaining air. I looked into the lesser sac to see how the sleeve was situating and it was situating well. There was no bleeding from the staple line, spleen, or short gastric vessels. The Mediflex retractor was removed, and the undersurface of the liver was inspected and there was no bleeding. The patient was placed in supine position. I closed the fascial defect of the 12 mm port site with a figure of eight #1 Polysorb suture. Then 100 cc 0.25 % Marcaine plain with 10 mg of Dexamethasone were used to infiltrate the fascial closure as well as all skin incisions. At this point, the abdomen was deflated, all ports were removed under direct vision, and no bleeding was noted from any of the port sites. The skin incisions were irrigated with saline and were closed with 4-0 absorbable monofilament sutures. Steri-Strips and OpSites were used to cover all incisions. The patient was extubated and was transferred in stable condition to the recovery room for further care. I was present and performed all ramírez parts of the procedure. Ms. Mcghee was the academic support assistant. There were no residents to assist with this case. Jacob Joe MD, PhD, FACS Surgeon: Estevan Joe MD Anesthesia: GETA, local and other (TAP block) Was an Rn Hematology used for this Procedure?: Yes Rn Hematology: Sabrina Mcghee Estimated blood loss (mL): 10 IV fluids (mL): 3,000 Urine output (mL): 0 (No Nettles to record) Pathology: other (Stomach) Condition: stable Disposition: PACU
--- NOTE | 2020-09-23 11:14 | P.DS_ITS ---
DS: Providers Provider Date of Service: 09/24/20 Date of admission: 09/23/20 06:19 Primary care physician: Yael Hoskins MD DS: Medications Discharge Medications Home Medications: Home Medications Medication Instructions Recorded Confirmed ascorbic acid (vitamin C) 500 mg 500 mg PO DAILY 03/09/20 09/17/20 capsule cholecalciferol (vitamin D3) 25 25 mcg PO DAILY 03/09/20 09/17/20 mcg (1,000 unit) capsule omeprazole 20 mg capsule,delayed 20 mg PO DAILY PRN 03/25/20 09/17/20 release gabapentin 100 mg PO DAILY 06/04/20 09/17/20 albuterol sulfate [ProAir HFA] 2 puff INHALATION Q4-6H PRN 09/17/20 09/17/20 fluticasone propionate 1 spray INTRANASAL DAILY PRN 09/17/20 09/17/20 meloxicam 15 mg PO DAILY PRN 09/17/20 09/17/20 Previous Rx's Medication Instructions Recorded blood-glucose meter #1 ea 06/15/20 lancets 28 gauge #100 ea 06/15/20 blood sugar diagnostic #100 ea 06/17/20 loratadine 10 mg tablet 10 mg PO DAILY #90 tab 09/14/20 ondansetron HCl 4 mg tablet 4 mg PO Q6H #20 tab 09/17/20 pantoprazole 40 mg tablet,delayed 40 mg PO DAILY #30 tab 09/17/20 release polyethylene glycol 3350 17 gram 17 g PO DAILY #14 ea 09/17/20 oral powder packet sucralfate 100 mg/mL oral 10 ml PO BID #400 ml 09/17/20 suspension DS: Summary Time Spent with Patient Time attestation: ADMITTING DIAGNOSIS: morbid obesity, s/p gastric band removal, asthma, GERD, paraesophageal hernia, hyperlipidemia, OA DISCHARGE DIAGNOSIS: same, s/p laparoscopic sleeve gastrectomy and repair diaphragmatic hernia PAST SURGICAL HISTORY: gastric banding and remova, BTL, lap cholecystectomy PROCEDURE: upper endoscopy, laparoscopic sleeve gastrectomy and repair of diaphragmatic hernia hernia DISCHARGE SUMMARY: History of Present Illness: The patient is a 49 year-old woman with a BMI of 46.5 kg/m2 and associated co- morbidities as described above. The patient had extensive work-up,lost 21.2 lbs preoperatively and was electively scheduled for laparoscopic, possible open sleeve gastrectomy and gastropexy after gastric banding and removal. Risks and complications of the surgery were discussed with the patient in advance, particularly the possibility of , pulmonary embolism, anastomotic leak, bleeding, bowel injury, GERD, cardiac, renal or pulmonary complications. The patient understood all the risks and was in agreement with the surgical plan. Hospital Course: The patient underwent an uneventful laparoscopic sleeve gastrectomy with gastropexy and repair of diaphragmatic hernia on the day of admission. Postoperatively, the patient was transferred to the surgical floor. The patient was on IV Acetaminophen and IV dilaudid for pain control. Patient was started on bariatric phase 1 diet POD #0. On postoperative day one, the patient was feeling well without nausea, vomiting, fevers, or tachycardia. The patient had some mild incisional pain. The abdomen was soft. On the morning of postoperative day one, the patient was continued on 1 ounce of water or ice every half hour. During the first day, the patient did fairly well, having some incisional pain, but able to ambulate adequately and to tolerate liquids well. Since the patient is doing well, we decided that the patient was ready to be discharged. The patient was given instructions to follow-up with me next week and to call my office for any fever over 101, persistent abdominal pain, nausea, vomiting, GERD, symptoms of DVT such as calf tenderness, or leg swelling, or pulmonary embolism such as chest pain or shortness of breath. The patient was also instructed to drink 40-60 ounces of liquids per day using the 1-ounce cups. The patient was given prescription for Tylenol for pain, Zofran prn for nausea, and pantoprazole and carafate. The patient was encouraged to ambulate and use the incentive spirometer. The patient was allowed to shower, but no baths, and encouraged to stay active at home. All of these instructions were given to the patient personally. All questions were answered and the patient understood all instructions, the instructions were also given to the patient in print. Total time spent providing and/or coordinating discharge services: 15 Discharge coordination time: Less than 30 minutes Physical Exam Vital Signs: Vital Signs: Last Vital Signs Temp 98.2 F 09/23/20 11:06 Pulse 89 09/23/20 11:11 Resp 14 09/23/20 11:11 BP 160/96 H 09/23/20 11:11 Pulse Ox 99 09/23/20 11:11 Body Mass Index 42.6 DS: Data Data Completed and Pending Pending studies at discharge: Pending at discharge 09/23/20 11:12 Surgical [PTH] Routine Labs on day of discharge: Laboratory Results - last 24 hr 09/23/20 09/23/20 06:15 06:34 POC Glucose 100 COVID-19 (DANNA) Negative COVID-19 Clin Com See Note Discharge Plan Discharge Anticipated Discharge Date/Time: 09/24/20 11:08 Patient Disposition: Home, Self-Care Discharge Diagnosis: s/p sleeve gastrectomy and paraesophageal hernia repair Referrals: Po,Yael Stauffer MD [Primary Care Provider] - 1 Week Discharge Medications: Continued gabapentin 100 mg capsule 100 mg PO DAILY RF: 0 albuterol sulfate [ProAir HFA] 90 mcg/actuation Hfa Aerosol Inhaler 2 puff INHALATION Q4-6H PRN (Reason: Shortness Of Breath) RF: 0 fluticasone propionate 50 mcg/actuation spray,suspension 1 spray intranasal DAILY PRN (Reason: Nasal Congestion) RF: 0 loratadine [Allergy Relief (loratadine)] 10 mg tablet 10 mg PO DAILY Qty: 90 RF: 2 pantoprazole 40 mg tablet,delayed release (DR/EC) 40 mg PO DAILY Qty: 30 RF: 2 sucralfate 100 mg/mL suspension 10 ml PO BID Qty: 400 RF: 2 ondansetron HCl [Zofran] 4 mg tablet 4 mg PO Q6H Qty: 20 RF: 0 Discontinued meloxicam 15 mg tablet 15 mg PO DAILY PRN (Reason: Pain) RF: 0 omeprazole 20 mg capsule,delayed release(DR/EC) 20 mg PO DAILY PRN (Reason: Acid Reflux) RF: 0 cholecalciferol (vitamin D3) 25 mcg (1,000 unit) capsule 25 mcg PO DAILY RF: 0 ascorbic acid (vitamin C) 500 mg capsule 500 mg PO DAILY RF: 0 polyethylene glycol 3350 [Miralax] 17 gram powder in packet 17 g PO DAILY Qty: 14 RF: 0 No Action (DME) FreeStyle Lite Strips Strip See Rx Instructions .ROUTE .MEDSUPPLY Qty: 100 RF: 3 (DME) blood-glucose meter [FreeStyle [place] Lite] Kit See Rx Instructions .ROUTE .MEDSUPPLY Qty: 1 RF: 0 (DME) lancets [FreeStyle Lancets] 28 gauge misc See Rx Instructions .ROUTE .MEDSUPPLY Qty: 100 RF: 3 Discharge Orders: Discharge Order (Routine); Ordered 09/24/20 Ordered By: Estevan Joe Diet: other Activity on Discharge: No heavy lifting Stand Alone Forms: Patient Portal Discharge page Activity Restrictions/Additional Instructions: No tub baths, sex or returning to work until discussed at first post op appointment. No exercise, alcohol, tobacco or illegal drug use. Continue to use incentive spirometer hourly while awake. Walk in home for 5- 10 minutes every 2 hours during the first week. Continue phase 1 diet today and start phase 2 diet tomorrow morning. Follow all instructions in the bariatric handbook and call with any questions. Care Plan Goals: weight loss Health Concerns: morbid obesity Plan of Treatment: see discharge instructions Assessment: POD # 1 s/p sleeve gastrectomy and repair of paraesophageal hernia, stable Discharge Date/Time: 09/24/20 10:25
[2020-09-23] MEDS: HYDROmorphone HCl 0.5 MG/0.5 ML SYRINGE 0.25 MG IVPUSH ×3 (11:25→21:53)
[2020-09-23 12:13] LABS: Anion Gap 13 (12-20); Blood Urea Nitrogen 16 mg/dL (9-16); Calcium 9.3 mg/dL (8.4-10.2); Carbon Dioxide 28 mmol/L (22-29); Chloride 101 mmol/L (96-108); Creatinine Clr Calc Pharmacy 92.4; Estimated Glomerular Filt Rate > 60; Glucose Random 145 mg/dL (60-115); Potassium 4.3 mmol/L (3.3-5.1); Sodium 138 mmol/L (135-145)
[2020-09-23] MEDS: Albuterol Sulfate (0.083%) 2.5 MG/3 ML VIAL.NEB INHALE (13:09)
--- NOTE | 2020-09-23 14:05 | MHC.CM.PN ---
nurse day care attendant note electronic medical record reviewed along With case discussed with staff nurse AND the hospitalist patient to go home today with iv daptomycin 500 mg qd x 6 weeks via central discharge plan 1. [facility] spoke with rekha clinical information as well as hcp line placement and abx script LINE PLACEMENT SENT TO HER REQUESTING NURSING QD FOR A FEW DAYS FOR IV ABX ADMINISTRATION AND LINE DRESSING AND CARE. WELL WOUND ASSESSMENT AND DRESSING CHAIRS AND PHYSICAL AND OCCUPATIONAL THEAPRY AND HOME HEALTH AIDE .. TO START TOMORROW 2 [facility] SENT TO THEM ALOM[facility] WITH ABX SCRIPT AND LINE PLACEMENT WITH ANTICIPATTION OF DISCHARGE TODAy. [facility] top patient and his . and they will then deliver the supplies once he ios dicharged claudy, PHYSICAL THERAPY EVALUATION DONE, CASE DISCUSSED WITH JONAS AND WITH PATIENT AND HIS , EVEN TOUGH HE WAS SO DETERMINED TO GO HOME AND THOUGHT HE WAS STRONG ENOUGH , HE WAS NOT ABLE TO BE ABLE TO TRANSFER USING HIS TRANSFER BOARD AND HIS WHEELCHAIR , AFTER THE EVALUATION HE ADMITTTED THAT HE IS WEAKER THAN HE THOUGHT AND WOULD BE WILLING TO GO TO REHAB IN ORDER TO GET HIS UPPER BODY STRENGTH BACK TO HIS BASELINE BEFORE HE GOT SICK WE REVIEWED SEVERAL PLACES HE WANTED TO GO TO [facility] OR [facility] OR [facility] NO RESPONSE [facility] STILL WAITING ON ACCEPTANCE BUT ALSO WITH PATIENT S PERMISSION [facility]
--- NOTE | 2020-09-23 14:07 | PM.PNGS ---
Subjective Subjective Date of Service: 09/24/20 Interval history: patient has mild incisional pain but was able to use the incentive spirometer and ambulate. Is tolerating phase 1 bariatric diet. Physical Exam Vital Signs: Vital Signs: Last Vital Signs Temp 97.3 F 09/23/20 13:53 Pulse 68 09/23/20 13:53 Resp 17 09/23/20 13:53 BP 166/83 H 09/23/20 13:53 Pulse Ox 95 09/23/20 13:53 Body Mass Index 42.6 GI: Inspection: Yes incision (clean, dry and intact) and Yes obesity Extrem: Right lower extremity: normal to inspection (no calf tenderness) Left lower extremity: normal to inspection (no calf tenderness) Progress Note: A&P Assessment and plan (1) Morbid obesity: Status: Acute (2) Type 2 diabetes mellitus with hyperglycemia: Status: Acute (3) H. pylori infection: Problem details: July 2020 Status: Acute (4) GERD (gastroesophageal reflux disease): Problem details: uses omeprazole prn Status: Acute (5) Hypercholesterolemia: Problem details: no current Rx Status: Acute (6) Knee pain, bilateral: Status: Acute (7) Steatosis, liver: Status: Acute (8) Liver fibrosis: Status: Acute (9) Esophagitis: Status: Acute (10) History of removal of laparoscopic gastric banding device: Status: Acute (11) S/P laparoscopic sleeve gastrectomy: Status: Acute Assessment and Plan: 49 year old Female was admitted 09/23/2020 with morbid obesity and comorbidities. Problem 1: s/p laparoscopic sleeve gastrectomy, repair of incarcerated diaphragmatic hernia, gastropexy, lysis of adhesions and capsulectomy Status: Doing well Plan: Check am labs, If OK, will begin phase 1 bariatric diet. (12) S/P repair of paraesophageal hernia: Status: Acute (13) Paraesophageal hernia: Status: Acute (14) Abdominal adhesions: Status: Acute Fall Risk Details Current Medications: Current Medications Generic Name Dose Route Start Last Admin Trade Name Freq PRN Reason Stop Dose Admin Albuterol Sulfate 2 puff 09/23/20 14:05 Albuterol Sulfate 90 Mcg 8 Gm Inhaler INHALE Q4-6H PRN Shortness Of Breath Famotidine 20 mg 09/23/20 14:05 Famotidine/Pf 20 Mg/2 Ml Vial IVPUSH BID ARAMIS Hydromorphone HCl 0.25 mg 09/23/20 14:05 Hydromorphone Hcl 0.5 Mg/0.5 Ml Syringe IVPUSH Q4H PRN Pain, Moderate (Pain Scale 4-6 Lactated Ringer's 1,000 mls @ 125 mls/hr 09/23/20 14:05 Lr IVCONT .Q8H ARAMIS Cefazolin Sodium/Dextrose 2 gm in 50 mls @ 100 mls/hr 09/23/20 14:05 Ancef IV 09/23/20 14:34 POSTOP ONE Acetaminophen 1,000 mg in 100 mls @ 16.7 mls/hr 09/23/20 14:05 Ofirmev IV .Q6H ARAMIS Metoclopramide HCl 10 mg 09/23/20 14:05 Metoclopramide Hcl 10 Mg/2 Ml Vial IVPUSH Q6H PRN Nausea Ondansetron HCl 4 mg 09/23/20 14:05 Ondansetron Hcl 4 Mg/2 Ml Vial IVPUSH Q8H ARAMIS Sodium Chloride 3 ml 09/23/20 16:00 0.9 % Sodium Chloride Flush 3 Ml Syringe IVFLUSH QSHIFT ARAMIS Time Spent With Patient Time: Total time spent is greater than 50% in coordination of care (as documented) at patient's floor/unit and/or counseling patient: Time with patient: less than 15 minutes
[2020-09-23] MEDS: ondansetron HCL 4 MG/2 ML VIAL IVPUSH ×2 (14:25→21:51)
[2020-09-23] MEDS: ceFAZolin Sodium/Dextrose,Iso 2 GM/50 ML PIGGYBACK IV (14:25)
[2020-09-23] MEDS: Famotidine/PF 20 MG/2 ML VIAL IVPUSH ×2 (14:25→21:51)
[2020-09-23] MEDS: Lactated Ringers 1,000 ML 125 ML IVCONT ×2 (14:30→21:57)
[2020-09-23] MEDS: 0.9 % Sodium Chloride Flush 3 ML SYRINGE IVFLUSH (21:54)
[2020-09-24 04:00] VITALS: BP 116/70; PULSE 70; RESP 20; TEMP 36.2; O2SAT 95
[2020-09-24 05:14] LABS: MANUAL DIFF FLAG NO
[2020-09-24 05:24] LABS: Basophils Percent Auto 0.2 % (0-2); Hematocrit 41.9 % (37-47); Hemoglobin 13.4 g/dl (12.0-16.0); Imm Gran Abs Auto 0.07 X10*3/uL (0.00-0.03); Imm Gran Pct Auto 0.5 % (0.0-0.4); Lymphocytes Absolute Auto 1.1 X10*3/uL (1.2-4.9); Lymphocytes Percent Auto 7.5 % (20-40); Mean Corpuscular Hemoglobin 29.3 pg (27.0-33.0); Mean Corpuscular Volume 91.5 fL (80-98); Mean Platelet Volume 10.7 fL (9.4-12.3); Monocytes Absolute Auto 0.9 X10*3/uL (0.1-1.2); Monocytes Percent Auto 6.4 % (2-11); Neutrophils Absolute Auto 12.4 X10*3/uL (2.0-8.3); Neutrophils Percent Auto 85.4 % (45-73); Platelet Count 378 X10*3/uL (160-400); Red Blood Count 4.58 X10*6/uL (4.20-5.50); Red Cell Distribution Width 12.6 % (11.0-16.0); White Blood Count 14.5 X10*3/uL (4.8-10.8)
[2020-09-24 05:50] LABS: Anion Gap 15 (12-20); Blood Urea Nitrogen 10 mg/dL (9-16); Calcium 8.8 mg/dL (8.4-10.2); Carbon Dioxide 27 mmol/L (22-29); Chloride 102 mmol/L (96-108); Creatinine Clr Calc Pharmacy 115.9; Estimated Glomerular Filt Rate > 60; Glucose Random 122 mg/dL (60-115); Potassium 4.5 mmol/L (3.3-5.1); Sodium 139 mmol/L (135-145)
[2020-09-24] MEDS: Lactated Ringers 1,000 ML 125 ML IVCONT (05:59)
[2020-09-24] MEDS: ondansetron HCL 4 MG/2 ML VIAL IVPUSH (06:00)
[2020-09-24] MEDS: Famotidine/PF 20 MG/2 ML VIAL IVPUSH (07:32)
[2020-09-24 07:37] VITALS: BP 127/79; PULSE 60; RESP 18; TEMP 36.6; O2SAT 93
--- NOTE | 2020-09-24 08:06 | HO.POSTANES ---
Post Anesthesia Evaluation Post Anesthesia Evaluation Vital Signs: Vital Signs Temp Pulse Resp BP Pulse Ox 09/24/20 07:37 97.9 F 60 18 127/79 93 09/24/20 04:00 97.2 F 70 20 116/70 95 09/23/20 23:34 97.1 F 70 20 101/73 95 Anesthesia: General Endotracheal-GETA Mental Status: Awake Pain Control: Satisfactory Nausea/Vomiting: None Hydration: Adequate Anesthesia-Related Issues: No Anes. Related Issues
--- NOTE | 2020-09-24 08:31 | MHC.CM.PN ---
nurse neonatal critical care nurse note electronic medical record reviewed along with case discussed with staff nurse , shavon with patient and ecplained the role of the nurse neonatal critical care nurse in the transition from the hospitla to home, educated about the importance of having a health care proxy. patient lives with her and 13 yr old daughter, she is active and independent in all adls and mobility withnout any devices. she has no vna /no dme services in the [place] she had sleep apnea back in 2016 but was retested and no longer had it discharge plan s/p gastric bypass home no services (no vna ordered) transportation family pcp dr dorantes bariatric f/u were discharge instructions all discharge paperwork completed paperwork completed
== END 2020-09-24 10:25 | disposition home or self-care (01) | DRG 403 ==
LOC: HO.SSSA 11:13 → HO.S3 11:42
PROVIDERS: Physician Assistant; Admitting Provider Surgery; PCP Internal Medicine; Visit Provider Surgery
PROC: 0DB64Z3 Excision of Stomach, Percutaneous Endoscopic Approach, Vertical (ICD-10-PCS; CPT 43845; principal; 2020-09-23 07:30)
DX: E66.01 Morbid (severe) obesity due to excess calories (principal); K44.0 Diaphragmatic hernia with obstruction, without gangrene; K76.0 Fatty (change of) liver, not elsewhere classified; E78.5 Hyperlipidemia, unspecified; Z68.37 Body mass index [BMI] 37.0-37.9, adult; K66.0 Peritoneal adhesions (postprocedural) (postinfection); Z98.84 Bariatric surgery status; R73.03 Prediabetes; K21.00 Gastro-esophageal reflux disease with esophagitis, without bleeding; Z20.822 Contact with and (suspected) exposure to COVID-19; Z79.51 Long term (current) use of inhaled steroids; Z79.899 Other long term (current) drug therapy
CPT/HCPCS: 36415; 80048; 80053; 80061; 82947; 83036; 83525; 84443; 85014; 85018; 85025; 85610; 85730; 86140; 86850; 86900; 86901; 87635; 88307; 88342; 94640; 99024; A4649; J0131; J0690; J1100; J1170; J2250; J2370; J2405; J3010

== ENCOUNTER → 2020-10-01 07:32 | Outpatient (BNVA) | payer OTHER, SELFPAY | PROVIDERS: PCP Internal Medicine; Visit Provider Surgery | DX: E66.01 Morbid (severe) obesity due to excess calories (principal); Z68.41 Body mass index [BMI] 40.0-44.9, adult | CPT/HCPCS: 99212 ==

== ENCOUNTER 2020-10-19 18:19 | Emergency (ER) | payer OTHER, SELFPAY ==
[2020-10-19 19:15] VITALS: BP 115/74; PULSE 69; RESP 18; TEMP 36.7; O2SAT 98; BMI 40.0
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
== END 2020-10-19 20:57 | disposition home or self-care (01) ==
PROVIDERS: Emergency Provider Emergency Medicine Emergency Medical Services; PCP Internal Medicine
DX: S13.4XXA Sprain of ligaments of cervical spine, initial encounter (principal); S39.012A Strain of muscle, fascia and tendon of lower back, initial encounter; M54.2 Cervicalgia; X58.XXXA Exposure to other specified factors, initial encounter; Y93.9 Activity, unspecified; Y92.410 Unspecified street and highway as the place of occurrence of the external cause; Y99.9 Unspecified external cause status; Z79.899 Other long term (current) drug therapy
CPT/HCPCS: 99284

== ENCOUNTER → 2020-11-01 07:46 | Outpatient (BNVA) | payer OTHER, SELFPAY | PROVIDERS: PCP Internal Medicine; Visit Provider Surgery | DX: E66.01 Morbid (severe) obesity due to excess calories (principal); Z68.41 Body mass index [BMI] 40.0-44.9, adult; Z71.3 Dietary counseling and surveillance | CPT/HCPCS: 99212 ==

== ENCOUNTER 2020-12-02 13:10 | Outpatient (REF) | payer OTHER, SELFPAY ==
--- NOTE | ~2020-12-02 | XR_ITS ---
EXAMINATION: XR CERVICAL SPINE XR LUMBAR SPINE CLINICAL INFORMATION: Neck pain and lower back pain. COMPARISON: Lumbar spine radiographs dated 11/20/2017. TECHNIQUE: AP, lateral, and open-mouth views of the cervical spine. AP, lateral, and coned-down views of the lumbar spine. FINDINGS: CERVICAL SPINE: Normal vertebral body alignment. No acute fracture or subluxation. No loss of vertebral body height. Mild loss of intervertebral disc height with tiny anterior endplate osteophytes at C5-C6. Normal atlantoaxial alignment. Unremarkable prevertebral soft tissues. LUMBAR SPINE: Normal vertebral body alignment. No acute fracture or subluxation. No loss of vertebral body height. Loss of intervertebral disc height with anterior endplate osteophytes at L2 through S1, most prominent at L3-L4. Bilateral facet arthropathy at L4-L5 and L5-S1. Findings have slightly progressed when compared to the prior examination. Right and left upper quadrant surgical clips. XR/XR lumbar spine 2-3V IMPRESSION: Cervical spine: Mild degenerative disc disease at C5-C6. Lumbar spine: Degenerative disc disease at L2 through S1 as well as bilateral facet arthropathy at L4-L5 and L5-S1, slightly progressed when compared to the prior radiographs.
--- NOTE | ~2020-12-02 | XR_ITS ---
EXAMINATION: XR CERVICAL SPINE XR LUMBAR SPINE CLINICAL INFORMATION: Neck pain and lower back pain. COMPARISON: Lumbar spine radiographs dated 11/20/2017. TECHNIQUE: AP, lateral, and open-mouth views of the cervical spine. AP, lateral, and coned-down views of the lumbar spine. FINDINGS: CERVICAL SPINE: Normal vertebral body alignment. No acute fracture or subluxation. No loss of vertebral body height. Mild loss of intervertebral disc height with tiny anterior endplate osteophytes at C5-C6. Normal atlantoaxial alignment. Unremarkable prevertebral soft tissues. LUMBAR SPINE: Normal vertebral body alignment. No acute fracture or subluxation. No loss of vertebral body height. Loss of intervertebral disc height with anterior endplate osteophytes at L2 through S1, most prominent at L3-L4. Bilateral facet arthropathy at L4-L5 and L5-S1. Findings have slightly progressed when compared to the prior examination. Right and left upper quadrant surgical clips. XR/XR cervical spine 3V IMPRESSION: Cervical spine: Mild degenerative disc disease at C5-C6. Lumbar spine: Degenerative disc disease at L2 through S1 as well as bilateral facet arthropathy at L4-L5 and L5-S1, slightly progressed when compared to the prior radiographs.
[2020-12-02 14:00] LABS: Estimated Average Glucose 117 mg/dL; Hemoglobin A1c % 5.7 %
[2020-12-02 14:08] LABS: Alanine Aminotransferase 17 U/L (0-31); Alkaline Phosphatase 96 U/L (39-117); Anion Gap 14 (12-20); Aspartate Amino Transferase 23 U/L (5-31); Bilirubin Total 0.6 mg/dL (0.0-1.0); Blood Urea Nitrogen 11 mg/dL (9-16); Calcium 9.5 mg/dL (8.4-10.2); Carbon Dioxide 27 mmol/L (22-29); Chloride 103 mmol/L (96-108); Cholesterol 210 mg/dL; Estimated Glomerular Filt Rate > 60; Glucose Random 116 mg/dL (60-115); HDL Cholesterol 53 mg/dL; LDL Cholesterol Calculated 127 mg/dl; Potassium 4.2 mmol/L (3.3-5.1); Sodium 140 mmol/L (135-145); Total Protein 6.7 g/dL (6.5-8.0); Triglycerides 154 mg/dL
[2020-12-02 14:31] LABS: Thyroid Stimulating Hormone 1.49 uIU/mL (0.32-4.0)
== END 2020-12-02 13:11 | disposition home or self-care (01) ==
LOC: HO.LAB 13:10
PROVIDERS: Absent Provider Internal Medicine; PCP Internal Medicine; Visit Provider Physician Assistant
DX: M54.5 Low back pain (principal); M54.2 Cervicalgia; E11.65 Type 2 diabetes mellitus with hyperglycemia; E78.00 Pure hypercholesterolemia, unspecified
CPT/HCPCS: 36415; 72040; 72100; 80053; 80061; 83036; 84443

== ENCOUNTER → 2020-12-13 07:37 | Outpatient (BNVA) | payer OTHER, SELFPAY | PROVIDERS: PCP Internal Medicine; Visit Provider Surgery ==

== ENCOUNTER 2020-12-27 09:00 | Outpatient (RCR) | payer OTHER, SELFPAY | END 2021-04-01 15:04 | disposition home or self-care (01) | LOC: HO.PTWFD 09:00 | PROVIDERS: PCP Internal Medicine; Visit Provider Internal Medicine | DX: M54.2 Cervicalgia (principal) | CPT/HCPCS: 97110; 97140; 97162; 97535 ==

== ENCOUNTER 2021-01-10 08:10 | Outpatient (REF) | payer OTHER, SELFPAY ==
--- NOTE | ~2021-01-10 | XR_ITS ---
EXAMINATION: XR KNEES, STANDING AP XR KNEE, RIGHT XR KNEE, LEFT CLINICAL INFORMATION: Bilateral knee pain. COMPARISON: Radiographs left knee 12/30/2019, radiographs right knee 12/09/2015. TECHNIQUE: Standing AP view of both knees is performed. Each knee is also imaged in lateral and axial patella views. The left axial patellar view has superimposed processing artifact. FINDINGS: Right: There is no fracture or dislocation. No destructive process. Bony mineralization is within normal. The lateral view suggests mild thickening of the suprapatellar bursa without overt effusion. Hoffa's fat pad is unremarkable. There is no significant narrowing medial or lateral knee joint compartments. No erosive change or chondrocalcinosis. There is mild narrowing lateral patellofemoral joint with small lateral patellar spur. There is no lateralization or tilting of the patella. Left: There is no fracture or dislocation or destructive process. Bony mineralization appears normal. There is narrowing of the medial knee joint compartment. No erosive change or visible chondrocalcinosis. There is a moderate suprapatellar effusion. Hoffa's fat pad appears normal. No lateralization patella. XR/XR knee LT 2V IMPRESSION: 1. Right: Mild degenerative changes lateral patellofemoral joint. No lateralization patella. 2. Left: Narrowing medial knee joint compartment with moderate suprapatellar effusion. No erosive change.
--- NOTE | ~2021-01-10 | XR_ITS ---
EXAMINATION: XR KNEES, STANDING AP XR KNEE, RIGHT XR KNEE, LEFT CLINICAL INFORMATION: Bilateral knee pain. COMPARISON: Radiographs left knee 12/30/2019, radiographs right knee 12/09/2015. TECHNIQUE: Standing AP view of both knees is performed. Each knee is also imaged in lateral and axial patella views. The left axial patellar view has superimposed processing artifact. FINDINGS: Right: There is no fracture or dislocation. No destructive process. Bony mineralization is within normal. The lateral view suggests mild thickening of the suprapatellar bursa without overt effusion. Hoffa's fat pad is unremarkable. There is no significant narrowing medial or lateral knee joint compartments. No erosive change or chondrocalcinosis. There is mild narrowing lateral patellofemoral joint with small lateral patellar spur. There is no lateralization or tilting of the patella. Left: There is no fracture or dislocation or destructive process. Bony mineralization appears normal. There is narrowing of the medial knee joint compartment. No erosive change or visible chondrocalcinosis. There is a moderate suprapatellar effusion. Hoffa's fat pad appears normal. No lateralization patella. XR/XR knee RT 2V IMPRESSION: 1. Right: Mild degenerative changes lateral patellofemoral joint. No lateralization patella. 2. Left: Narrowing medial knee joint compartment with moderate suprapatellar effusion. No erosive change.
--- NOTE | ~2021-01-10 | XR_ITS ---
EXAMINATION: XR KNEES, STANDING AP XR KNEE, RIGHT XR KNEE, LEFT CLINICAL INFORMATION: Bilateral knee pain. COMPARISON: Radiographs left knee 12/30/2019, radiographs right knee 12/09/2015. TECHNIQUE: Standing AP view of both knees is performed. Each knee is also imaged in lateral and axial patella views. The left axial patellar view has superimposed processing artifact. FINDINGS: Right: There is no fracture or dislocation. No destructive process. Bony mineralization is within normal. The lateral view suggests mild thickening of the suprapatellar bursa without overt effusion. Hoffa's fat pad is unremarkable. There is no significant narrowing medial or lateral knee joint compartments. No erosive change or chondrocalcinosis. There is mild narrowing lateral patellofemoral joint with small lateral patellar spur. There is no lateralization or tilting of the patella. Left: There is no fracture or dislocation or destructive process. Bony mineralization appears normal. There is narrowing of the medial knee joint compartment. No erosive change or visible chondrocalcinosis. There is a moderate suprapatellar effusion. Hoffa's fat pad appears normal. No lateralization patella. XR/XR knee standing BI IMPRESSION: 1. Right: Mild degenerative changes lateral patellofemoral joint. No lateralization patella. 2. Left: Narrowing medial knee joint compartment with moderate suprapatellar effusion. No erosive change.
== END 2021-01-10 08:11 | disposition home or self-care (01) ==
LOC: HO.HOSX 08:10
PROVIDERS: Visit Provider Orthopaedic Surgery
DX: M17.0 Bilateral primary osteoarthritis of knee (principal); Z98.84 Bariatric surgery status
CPT/HCPCS: 20610; 73560; 73565; 99212; J1100

== ENCOUNTER 2021-03-25 10:21 | Outpatient (REF) | payer OTHER, SELFPAY ==
[2021-03-25 13:59] LABS: Alanine Aminotransferase 14 U/L (0-31); Albumin Level 4.1 g/dL (3.5-5.0); Alkaline Phosphatase 94 U/L (39-117); Anion Gap 10 (12-20); Aspartate Amino Transferase 23 U/L (5-31); Bilirubin Total 0.6 mg/dL (0.0-1.0); Blood Urea Nitrogen 14 mg/dL (9-16); Calcium 9.2 mg/dL (8.4-10.2); Carbon Dioxide 31 mmol/L (22-29); Chloride 105 mmol/L (96-108); Cholesterol 224 mg/dL; Estimated Glomerular Filt Rate > 60; Glucose Random 104 mg/dL (60-115); HDL Cholesterol 56 mg/dL; LDL Cholesterol Calculated 149 mg/dl; Potassium 4.2 mmol/L (3.3-5.1); Sodium 142 mmol/L (135-145); Total Protein 6.6 g/dL (6.5-8.0); Triglycerides 96 mg/dL
[2021-03-25 14:36] LABS: Estimated Average Glucose 117 mg/dL; Hemoglobin A1c % 5.7 %
== END 2021-03-25 10:22 | disposition home or self-care (01) ==
LOC: HO.WFDLDS 10:21
PROVIDERS: Visit Provider Internal Medicine
DX: E78.00 Pure hypercholesterolemia, unspecified (principal)
CPT/HCPCS: 36415; 80053; 80061; 83036

== ENCOUNTER 2021-05-04 11:19 | Outpatient (REF) | payer OTHER, SELFPAY ==
[2021-05-04 12:06] LABS: Influenza A PCR NEGATIVE (Negative); Influenza B PCR NEGATIVE (Negative); Resp Syncy Virus RNA Qual PCR NEGATIVE (Negative); SARS COV2 PCR INHOUSE POSITIVE (Negative)
== END 2021-05-04 11:20 | disposition home or self-care (01) ==
LOC: HO.LNP 11:19
PROVIDERS: Visit Provider Family Medicine
DX: Z20.822 Contact with and (suspected) exposure to COVID-19 (principal); B34.9 Viral infection, unspecified
CPT/HCPCS: 0241U

== ENCOUNTER 2021-05-23 15:23 | Emergency (ER) | payer OTHER, SELFPAY ==
--- NOTE | ~2021-05-23 | CT_ITS ---
EXAMINATION: CT ABDOMEN AND PELVIS WITH CONTRAST CLINICAL INFORMATION: Lower abdominal pain and diarrhea COMPARISON: Ultrasound abdomen 06/04/2020 TECHNIQUE: Multidetector volumetric images were obtained from the superior aspect of the liver through the pubic symphysis following administration 85 mL of Omnipaque 350 intravenous contrast. Sagittal and coronal reformatted images were obtained on the technologist's workstation. Oral contrast: No This CT examination was performed using dose optimization techniques as appropriate, variously including the following: *Automated exposure control *Adjustment of mA and/or kV according to patient size (this includes techniques or standardized protocols for targeted exams where dose is matched to indication/reason for exam; i.e. extremities or head) *Use of iterative reconstruction technique DLP: 954 mGy-cm FINDINGS: LUNG BASES: The visualized lung bases are unremarkable. LIVER, GALLBLADDER, AND BILIARY TREE: The liver is normal in size, shape, and attenuation. No focal hepatic lesion or biliary ductal dilatation is present. Status post cholecystectomy. PANCREAS: Unremarkable. SPLEEN: Unremarkable. ADRENAL GLANDS: Unremarkable. KIDNEYS AND URETERS: The kidneys are normal in size, shape, and attenuation. A 1 cm benign right renal cyst is present which needs no further follow-up. A similar 5 mm lesion present in the left kidney. No solid renal masses are seen. No hydronephrosis, hydroureter, or calculi seen. No perinephric stranding. BLADDER: Unremarkable. GASTROINTESTINAL TRACT: Status post gastric sleeve. Moderate sigmoid diverticular are present with scattered diverticula elsewhere in the colon. There is no evidence of diverticulitis. The small and large bowel are otherwise unremarkable. The appendix is unremarkable. ABDOMINAL WALL: No significant hernia is appreciated. There is a small periumbilical hernia seen containing only fat. LYMPH NODES: No retroperitoneal lymphadenopathy. VASCULAR: Calcific plaque present in the infrarenal aorta and right common iliac artery. No aneurysm. PELVIC VISCERA: A normal anteverted uterus is present. An abnormal adnexal mass or free intraperitoneal fluid is not seen. OSSEOUS STRUCTURES: Unremarkable. CT/CT abdomen pelvis w con IMPRESSION: 1. A definite etiology for the patient's lower abdominal pain and diarrhea has not been found. 2. Incidental note made of sigmoid diverticula without diverticulitis, cholecystectomy, gastric sleeve and benign renal cysts which need no further follow-up. Fleischner guidelines were followed.
--- NOTE | 2021-05-23 15:32 | ED.ABDPAIN ---
HPI - Abdominal Pain General Chief Complaint: General Medical Stated Complaint: L SIDED ABD PAIN,DIARRHEA,FULLY VACCINE Time Seen by Provider: 05/23/21 15:32 Source: patient Mode of arrival: EMS Limitations: no limitations History of Present Illness HPI narrative: dx with COVID on 05/04 did well other than some sinus issues woke up this AM with lower abdominal discomfort proceeded to have very watery diarrhea all day she took nap and then woke up with upper abdominal pain and tried to vomit she then had syncopal episode episode and woke up on the floor. She denies any recent CP/SOB. Denies GIB symptoms. Feels she was able to eat and drink well while she had COVID MD elicited complaint: abdominal pain (diarrhea, nausea and vomiting) Pertinent past history: other (s/p bariatric surgery) Onset (ago): hour(s) (woke up with this AM with diarrhea) Pain Consistency: constant Location: periumbilical and LLQ Severity: moderate Quality: cramping Radiation: epigastric Migration to: no migration Exacerbating factors: eating and movement Relieving factors: nothing Associated symptoms: nausea, vomiting, diarrhea, chills and syncope (while on toilet then attempting to vomit) Related Data Home Medications Medication Instructions Recorded Confirmed biotin 5 mg tablet mg PO 12/27/20 cholecalciferol (vitamin D3) 25 25 mcg PO DAILY 12/27/20 mcg (1,000 unit) capsule multivitamin 1 tab PO DAILY 12/27/20 zinc sulfate 25 mg zinc (110 mg) 25 mg PO DAILY 12/27/20 tablet (Orazinc) Previous Rx's Medication Instructions Recorded blood-glucose meter (FreeStyle #1 ea 06/15/20 [employer] Lite) lancets 28 gauge (FreeStyle #100 ea 06/15/20 Lancets) blood sugar diagnostic (FreeStyle #100 ea 06/17/20 Lite Strips) simvastatin 5 mg tablet 5 mg PO BEDTIME 30 Days #30 tab 03/29/21 terbinafine HCl 250 mg tablet 250 mg PO DAILY 84 Days #84 tab 03/29/21 Allergies Allergy/AdvReac Type Severity Reaction Status Date / Time metformin AdvReac Intermediate nausea Verified 05/04/21 08:48 Review of Systems Review of Systems Constitutional : No Weight loss, No Fever, No Chills ENT/Mouth : No sore throat, No Rhinorrhea Eyes: No Swelling, No Redness Cardiovascular : No Chest Pain, No SOB, NoEdema Respiratory : No Cough, No Sputum, No Wheezing Gastrointestinal : Positive Nausea, no Vomiting, positive Diarrhea, positive abdominal Pain, No Hematochezia, No Melena Genitourinary : No Dysuria, No Urinary Frequency, No Hematuria, No Urgency Musculoskeletal : No joint pain, No Myalgias, No Joint Swelling Skin : No Skin Lesions, No rash Neuro : No Weakness, No Numbness, No Dizziness, No Headache, pos syncope Psych : No Anxiety/Panic, No Depression Heme/Lymph: No Bruising, No Lymphadenopathy Endocrine : No Polyuria, No Polydipsia All other systems reviewed and are negative. Physical Exam Vital Signs: Vital Signs: Last Vital Signs Temp 97.7 F 05/23/21 15:39 Pulse 95 05/23/21 19:15 Resp 23 H 05/23/21 19:15 BP 106/67 05/23/21 19:15 Pulse Ox 97 05/23/21 19:15 BMI result Body Mass Index 38.2 Appearance: Alert. Oriented X3. No acute distress. Eyes: Pupils equal, round and reactive to light. ENT: Pharynx normal. Lower lip mild bruising noted Neck: Normal inspection. Neck supple. CVS: Normal heart rate and rhythm. Pulses normal. Respiratory: No respiratory distress. Breath sounds normal. Abdomen: Soft and very mild ttp along LLQ no rebound Skin: Skin warm and dry. Normal skin color. Normal skin turgor. Extremities: No lower extremity edema. Neuro: Oriented X 3. No motor deficit. No sensory deficit. Course Course Course Narrative: negative CT scan at this time, prior elevated WBC count - feels much better, repeat trop pending EKG nonischemic, trop flat x 2, no complaints states she feels better no CP/SOB/signs of DVT to suggest VTE able to ambulate suspect vasovagal from vomiting/diarrhea feels much better, up and walking to bathroom with steady gait MDM - Abdominal Pain MDM Narrative Medical decision making narrative: 50 yo female with hx of bariatric surgery, COVID 05/04, GERD, HLD here with c/o diarrhea and pain all day resulted in her feeling the need to vomit as well she had syncopal event at that time - no neck or head pain has some bruising on lip, no AC therapy no preceding CP/SOB did well with her COVID at this time will obtain labs, hydrate, CT scan for colitis, EKG, ortho VS, troponin x 2. No CP/SOB to suggest PE. Lab Data Result diagrams: 05/23/21 16:52 05/23/21 16:52 Labs: Lab Results 05/23/21 05/23/21 05/23/21 Range/Units 16:50 16:52 16:52 WBC 16.3 H (4.8-10.8) X10*3/uL RBC 4.89 (4.20-5.50) X10*6/uL Hgb 14.1 (12.0-16.0) g/dl Hct 44.3 (37.0-47.0) % MCV 90.6 (80.0-98.0) fL MCH 28.8 (27.0-33.0) pg MCHC 31.8 (31.0-35.0) g/dl RDW 12.6 (11.0-16.0) % Plt Count 286 (160-400) X10*3/uL MPV 10.1 (9.4-12.3) fL Immature Gran % (Auto) 0.4 (0.0-0.4) % Neut % (Auto) 91.8 H (45-73) % Lymph % (Auto) 2.8 L (20-40) % [place] % (Auto) 4.6 (2-11) % Eos % (Auto) 0.2 (0-4) % Baso % (Auto) 0.2 (0-2) % Lymph # (Auto) 0.5 L (1.2-4.9) X10*3/uL [place] # (Auto) 0.7 (0.1-1.2) X10*3/uL Eos # (Auto) 0.0 (0.0-0.4) X10*3/uL Baso # (Auto) 0.0 (0.0-0.2) X10*3/uL Abs Immat Gran (auto) 0.06 H (0.00-0.03) X10*3/uL Absolute Neuts (auto) 14.9 H (2.0-8.3) x10*3/uL Absolute Nucleated RBC 0.000 (0.0-0.012) X10*3/uL Nucleated RBC % (auto) 0.0 (0.0-0.2) /100WBC Smear Tech's Comments VERIFIED Sodium 141 (135-145) mmol/L Potassium 5.0 (3.3-5.1) mmol/L Chloride 107 (96-108) mmol/L Carbon Dioxide 29 (22-29) mmol/L Anion Gap 10 L (12-20) BUN 22 H (9-16) mg/dL Creatinine 0.75 (0.5-1.4) mg/dL Estim Creat Clear Calc 95.2 Estimated GFR > 60 Random Glucose 121 H (60-115) mg/dL Lactic Acid (0.5-2.0) mmol/L Calcium 9.2 (8.4-10.2) mg/dL Magnesium 1.9 (1.6-2.6) mg/dL Total Bilirubin 0.6 (0.0-1.0) mg/dL Direct Bilirubin 0.3 (0.0-0.5) mg/dL AST 20 (5-31) U/L ALT 15 (0-31) U/L Alkaline Phosphatase 93 (39-117) U/L Troponin I High Sens (<3.5-17.0) ng/L Total Protein 6.7 (6.5-8.0) g/dL Albumin 4.1 (3.5-5.0) g/dL Lipase 21 (8-78) U/L Urine Color Urine Appearance Urine pH (5.0-8.0) Ur Specific State [address] (1.005-1.025) Urine Protein (NEG-TRACE) MG/DL Urine Glucose (UA) (NEG) MG/DL Urine Ketones (NEG) MG/DL Urine Blood (NEG) Urine Nitrite (NEG) Ur Leukocyte Esterase (NEG) COVID-19 (DANNA) Positive A (Negative) COVID-19 Clin Com See Note 05/23/21 05/23/21 05/23/21 Range/Units 16:52 16:53 19:10 WBC (4.8-10.8) X10*3/uL RBC (4.20-5.50) X10*6/uL Hgb (12.0-16.0) g/dl Hct (37.0-47.0) % MCV (80.0-98.0) fL MCH (27.0-33.0) pg MCHC (31.0-35.0) g/dl RDW (11.0-16.0) % Plt Count (160-400) X10*3/uL MPV (9.4-12.3) fL Immature Gran % (Auto) (0.0-0.4) % Neut % (Auto) (45-73) % Lymph % (Auto) (20-40) % [place] % (Auto) (2-11) % Eos % (Auto) (0-4) % Baso % (Auto) (0-2) % Lymph # (Auto) (1.2-4.9) X10*3/uL [place] # (Auto) (0.1-1.2) X10*3/uL Eos # (Auto) (0.0-0.4) X10*3/uL Baso # (Auto) (0.0-0.2) X10*3/uL Abs Immat Gran (auto) (0.00-0.03) X10*3/uL Absolute Neuts (auto) (2.0-8.3) x10*3/uL Absolute Nucleated RBC (0.0-0.012) X10*3/uL Nucleated RBC % (auto) (0.0-0.2) /100WBC Smear Tech's Comments Sodium (135-145) mmol/L Potassium (3.3-5.1) mmol/L Chloride (96-108) mmol/L Carbon Dioxide (22-29) mmol/L Anion Gap (12-20) BUN (9-16) mg/dL Creatinine (0.5-1.4) mg/dL Estim Creat Clear Calc Estimated GFR Random Glucose (60-115) mg/dL Lactic Acid 1.2 (0.5-2.0) mmol/L Calcium (8.4-10.2) mg/dL Magnesium (1.6-2.6) mg/dL Total Bilirubin (0.0-1.0) mg/dL Direct Bilirubin (0.0-0.5) mg/dL AST (5-31) U/L ALT (0-31) U/L Alkaline Phosphatase (39-117) U/L Troponin I High Sens < 3.5 < 3.5 (<3.5-17.0) ng/L Total Protein (6.5-8.0) g/dL Albumin (3.5-5.0) g/dL Lipase (8-78) U/L Urine Color Urine Appearance Urine pH (5.0-8.0) Ur Specific State Road (1.005-1.025) Urine Protein (NEG-TRACE) MG/DL Urine Glucose (UA) (NEG) MG/DL Urine Ketones (NEG) MG/DL Urine Blood (NEG) Urine Nitrite (NEG) Ur Leukocyte Esterase (NEG) COVID-19 (DANNA) (Negative) COVID-19 Clin Com 05/23/21 Range/Units 19:10 WBC (4.8-10.8) X10*3/uL RBC (4.20-5.50) X10*6/uL Hgb (12.0-16.0) g/dl Hct (37.0-47.0) % MCV (80.0-98.0) fL MCH (27.0-33.0) pg MCHC (31.0-35.0) g/dl RDW (11.0-16.0) % Plt Count (160-400) X10*3/uL MPV (9.4-12.3) fL Immature Gran % (Auto) (0.0-0.4) % Neut % (Auto) (45-73) % Lymph % (Auto) (20-40) % [place] % (Auto) (2-11) % Eos % (Auto) (0-4) % Baso % (Auto) (0-2) % Lymph # (Auto) (1.2-4.9) X10*3/uL [place] # (Auto) (0.1-1.2) X10*3/uL Eos # (Auto) (0.0-0.4) X10*3/uL Baso # (Auto) (0.0-0.2) X10*3/uL Abs Immat Gran (auto) (0.00-0.03) X10*3/uL Absolute Neuts (auto) (2.0-8.3) x10*3/uL Absolute Nucleated RBC (0.0-0.012) X10*3/uL Nucleated RBC % (auto) (0.0-0.2) /100WBC Smear Tech's Comments Sodium (135-145) mmol/L Potassium (3.3-5.1) mmol/L Chloride (96-108) mmol/L Carbon Dioxide (22-29) mmol/L Anion Gap (12-20) BUN (9-16) mg/dL Creatinine (0.5-1.4) mg/dL Estim Creat Clear Calc Estimated GFR Random Glucose (60-115) mg/dL Lactic Acid (0.5-2.0) mmol/L Calcium (8.4-10.2) mg/dL Magnesium (1.6-2.6) mg/dL Total Bilirubin (0.0-1.0) mg/dL Direct Bilirubin (0.0-0.5) mg/dL AST (5-31) U/L ALT (0-31) U/L Alkaline Phosphatase (39-117) U/L Troponin I High Sens (<3.5-17.0) ng/L Total Protein (6.5-8.0) g/dL Albumin (3.5-5.0) g/dL Lipase (8-78) U/L Urine Color YELLOW Urine Appearance CLEAR Urine pH 5.5 (5.0-8.0) Ur Specific [address] 1.015 (1.005-1.025) Urine Protein NEG (NEG-TRACE) MG/DL Urine Glucose (UA) NEG (NEG) MG/DL Urine Ketones NEG (NEG) MG/DL Urine Blood NEG (NEG) Urine Nitrite NEG (NEG) Ur Leukocyte Esterase NEG (NEG) COVID-19 (DANNA) (Negative) COVID-19 Clin Com ECG Data Attestation: I personally reviewed and interpreted this ECG as follows: ECG interpretation date: 05/23/21 ECG interpretation time: 16:28 Interpretation: Rate: 86 Rhythm: NSR [place]: normal Normal P waves. Normal [place]. Normal QRS complex. ST T wave : normal no SKYLAR qTC: normal prior studies: no acute ischemia The study has been interpreted contemporaneously by me. . Discharge Plan Discharge Clinical Impression: Diarrhea, Syncope Patient Disposition: Home, Self-Care Instructions: Acute Diarrhea (ED), Syncope (ED) Additional Instructions: return to ED for any worsening symptoms or concerns NEGATIVE HEART TESTS X 2, CT SCAN OF ABDOMEN NO SIGNS OF INFECTION, AVOID DAIRY FOR 2 DAYS, DRINK PLENTY OF FLUIDS, IF YOU DEVELOP ANY CHEST PAIN OR TROUBLE BREATHING SEEK IMMEDIATE CARE STAY HYDRATED Prescriptions: No Action (DME) FreeStyle Lite Strips Strip See Rx Instructions .ROUTE .MEDSUPPLY Qty: 100 RF: 3 cholecalciferol (vitamin D3) 25 mcg (1,000 unit) capsule 25 mcg PO DAILY RF: 0 multivitamin Tablet 1 tab PO DAILY RF: 0 Orazinc 25 mg zinc (110 mg) tablet 25 mg PO DAILY RF: 0 biotin 5 mg tablet PO RF: 0 simvastatin 5 mg tablet 5 mg PO BEDTIME 30 Days Qty: 30 RF: 5 terbinafine HCl 250 mg tablet 250 mg PO DAILY 84 Days Qty: 84 RF: 0 (DME) blood-glucose meter [FreeStyle [employer] Lite] Kit See Rx Instructions .ROUTE .MEDSUPPLY Qty: 1 RF: 0 (DME) lancets [FreeStyle Lancets] 28 gauge misc See Rx Instructions .ROUTE .MEDSUPPLY Qty: 100 RF: 3 PMFSH Past Medical History Medical History Allergic rhinitis Arthritis Asthma 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 COVID-19 vaccine administered Diabetes Esophagitis GERD (gastroesophageal reflux disease) History of postoperative nausea Hypercholesterolemia Impaired glucose tolerance Liver fibrosis Menopausal vaginal dryness Morbid obesity Obesity ATUL (obstructive sleep apnea) Osteoarthritis of right knee Post-menopausal bleeding Right carpal tunnel syndrome Seasonal allergies Sinus infection Steatosis, liver Vitamin D deficiency Surgical History History of cholecystectomy History of esophagogastroduodenoscopy (EGD) History of right salpingo-oophorectomy Hx of section Hx of laparoscopic gastric banding Hx of tubal ligation Family History Family History Mother Diabetes HTN (hypertension) High cholesterol Father Heart disease Social History Social History Housing: Apartment Are you a primary health care facilities inspector to a significant other at home: No Do you presently have visiting nurse or other home services: No Alcohol intake: former Patient Tobacco Use Status: Former Tobacco user Tobacco use type: Cigarette Years Smoked: 25 e-Cigarette/Vaping Use: Never Used Second Hand Smoke Exposure: No Advance Directives: No Advance Directives Information Provided: No service: No Current occupational status: employed Current occupational exposures/hazards: No Sexual orientation: Straight/Heterosexual Gender identity: Female
[2021-05-23 15:39] VITALS: BP 105/66; BP 125/64; PULSE 78; PULSE 80; RESP 20; TEMP 36.5; O2SAT 96; BMI 38.2
--- NOTE | 2021-05-23 15:44 | ECG_ITS ---
Test Reason : SYNCOPE Blood Pressure : / mmHG Vent. Rate : 086 BPM Atrial Rate : 086 BPM P-R Int : 168 ms QRS Dur : 062 ms QT Int : 354 ms P-R-T Axes : 020 013 015 degrees QTc Int : 423 ms Normal sinus rhythm Normal ECG When compared with ECG of 07-JUN-2020 08:45, No significant change was found Referred By: Peg Singh Electronically Signed By:LISA ZACARIAS MD
[2021-05-23 17:00] VITALS: BP 111/71; PULSE 86
[2021-05-23 17:01] VITALS: BP 114/74; PULSE 101
[2021-05-23 17:02] VITALS: BP 116/70; PULSE 114
[2021-05-23 17:03] VITALS: BP 111/71; PULSE 86; RESP 20; O2SAT 98
[2021-05-23 17:05] LABS: Basophils Percent Auto 0.2 % (0-2); Eosinophils Percent Auto 0.2 % (0-4); Hematocrit 44.3 % (37.0-47.0); Hemoglobin 14.1 g/dl (12.0-16.0); Imm Gran Abs Auto 0.06 X10*3/uL (0.00-0.03); Imm Gran Pct Auto 0.4 % (0.0-0.4); Lymphocytes Absolute Auto 0.5 X10*3/uL (1.2-4.9); Lymphocytes Percent Auto 2.8 % (20-40); MANUAL DIFF FLAG SCAN; Mean Corpuscular HGB Conc 31.8 g/dl (31.0-35.0); Mean Corpuscular Hemoglobin 28.8 pg (27.0-33.0); Mean Corpuscular Volume 90.6 fL (80.0-98.0); Mean Platelet Volume 10.1 fL (9.4-12.3); Monocytes Absolute Auto 0.7 X10*3/uL (0.1-1.2); Monocytes Percent Auto 4.6 % (2-11); Neutrophils Absolute Auto 14.9 x10*3/uL (2.0-8.3); Neutrophils Percent Auto 91.8 % (45-73); Platelet Count 286 X10*3/uL (160-400); Red Blood Count 4.89 X10*6/uL (4.20-5.50); Red Cell Distribution Width 12.6 % (11.0-16.0); SCAN SMEAR FLAG 1; White Blood Count 16.3 X10*3/uL (4.8-10.8)
[2021-05-23 17:13] LABS: COVID-19 Test Positive (Negative); IDNOW Serial# 9DD0AD1C
[2021-05-23 17:21] LABS: Lactic Acid 1.2 mmol/L (0.5-2.0)
[2021-05-23 17:28] LABS: Alanine Aminotransferase 15 U/L (0-31); Albumin Level 4.1 g/dL (3.5-5.0); Alkaline Phosphatase 93 U/L (39-117); Anion Gap 10 (12-20); Aspartate Amino Transferase 20 U/L (5-31); Bilirubin Direct 0.3 mg/dL (0.0-0.5); Bilirubin Total 0.6 mg/dL (0.0-1.0); Blood Urea Nitrogen 22 mg/dL (9-16); Calcium 9.2 mg/dL (8.4-10.2); Carbon Dioxide 29 mmol/L (22-29); Chloride 107 mmol/L (96-108); Creatinine Clr Calc Pharmacy 95.2; Estimated Glomerular Filt Rate > 60; Glucose Random 121 mg/dL (60-115); Lipase 21 U/L (8-78); Magnesium 1.9 mg/dL (1.6-2.6); Sodium 141 mmol/L (135-145); Total Protein 6.7 g/dL (6.5-8.0); Troponin-I High Sensitivity < 3.5 ng/L (<3.5-17.0)
[2021-05-23 17:32] LABS: SLIDE REVIEW VERIFIED
[2021-05-23] MEDS: 0.9 % Sodium Chloride 1,000 ML 999 ML IVCONT (17:37)
[2021-05-23] MEDS: Morphine Sulfate 4 MG/ML CARTRIDGE IVPUSH (17:37)
[2021-05-23] MEDS: ondansetron HCL 4 MG/2 ML VIAL IVPUSH (17:38)
[2021-05-23] MEDS: iohexoL 350 MG/ML 100 ML INFUS..BTL 85 ML IV (18:18)
--- NOTE | 2021-05-23 18:48 | PC.NURSE ---
Pt. well appearing. Speaking in full, clear sentences. RR Equal and unlabored. LS CTA. abdomen soft with diffuse tenderness throughout. endorses nonbloody diarrhea and nausea. SKin color appropriate for ethnicity. Neuros intact. vss.
[2021-05-23 19:15] VITALS: BP 106/67; PULSE 95; RESP 23; O2SAT 97
[2021-05-23 19:20] LABS: Appearance Urine CLEAR; Color Urine YELLOW; Glucose Urine UA NEG (NEG); Leukocyte Esterase Urine NEG (NEG); Nitrite Urine NEG (NEG); PH 5.5 (5.0-8.0); Specific Gravity - Urine 1.015 (1.005-1.025); Urine Blood NEG (NEG); Urine Ketones NEG (NEG); Urine Protein NEG (NEG-TRACE)
[2021-05-23 19:40] LABS: Troponin-I High Sensitivity < 3.5 ng/L (<3.5-17.0)
[2021-05-23] MEDS: 0.9 % Sodium Chloride 1,000 ML 999 ML IV (19:56)
--- NOTE | 2021-05-23 20:02 | PC.NURSE ---
Per MD patient to receive another liter of fluid and then she can be discharged.
== END 2021-05-23 20:49 | disposition home or self-care (01) ==
PROVIDERS: Emergency Provider Emergency Medicine
DX: U07.1 COVID-19 (principal); R19.7 Diarrhea, unspecified; R55 Syncope and collapse; R10.9 Unspecified abdominal pain; Z98.84 Bariatric surgery status
CPT/HCPCS: 36415; 74177; 80048; 80076; 81003; 83605; 83690; 83735; 84484; 85025; 87040; 87635; 93005; 96361; 96374; 96375; 99284; J2270; J2405; Q9967

== ENCOUNTER 2021-07-04 08:09 | Outpatient (REF) | payer OTHER, SELFPAY ==
[2021-07-04 10:47] LABS: Alanine Aminotransferase 8 U/L (0-31); Albumin Level 4.1 g/dL (3.5-5.0); Alkaline Phosphatase 88 U/L (39-117); Anion Gap 11 (12-20); Aspartate Amino Transferase 14 U/L (5-31); Bilirubin Total 0.5 mg/dL (0.0-1.0); Blood Urea Nitrogen 21 mg/dL (9-16); Calcium 9.2 mg/dL (8.4-10.2); Carbon Dioxide 29 mmol/L (22-29); Chloride 105 mmol/L (96-108); Cholesterol 191 mg/dL; Estimated Glomerular Filt Rate > 60; Glucose Random 109 mg/dL (60-115); HDL Cholesterol 59 mg/dL; LDL Cholesterol Calculated 113 mg/dl; Sodium 141 mmol/L (135-145); Total Protein 6.8 g/dL (6.5-8.0); Triglycerides 95 mg/dL
== END 2021-07-04 08:10 | disposition home or self-care (01) ==
LOC: HO.WFDLDS 08:09
PROVIDERS: Visit Provider Internal Medicine
DX: E78.00 Pure hypercholesterolemia, unspecified (principal)
CPT/HCPCS: 36415; 80053; 80061

== ENCOUNTER 2021-08-01 10:50 | Outpatient (REF) | payer OTHER, SELFPAY ==
--- NOTE | ~2021-08-01 | MM_ITS ---
EXAMINATION: MM SCREENING DIGITAL BREAST TOMOSYNTHESIS, BILATERAL CLINICAL INFORMATION: Screening. Asymptomatic. The lifetime risk of breast cancer based on the Tyrer-Cuzick Model is 9%. COMPARISON: Mammography: 11/11/2019, 01/08/2018, 02/21/2016 TECHNIQUE: Digital breast tomosynthesis is performed in both the craniocaudal and mediolateral oblique views along with computer-aided detection (CAD). Synthesized 2D images are generated from the tomosynthesis. FINDINGS: There are scattered areas of fibroglandular density (ACR BI-RADS breast composition Category b). There are no significant masses, abnormal calcifications, or other abnormalities. Background stromal and fibroglandular densities are stable. There is no developing density or interval architectural abnormality. The axilla and skin contours are unremarkable. MM/MM tomosynthesis screening BI IMPRESSION: No mammographic evidence of malignancy. ASSESSMENT: BI-RADS 1: Negative RECOMMENDATION: Routine annual mammography screening. This patient's information was entered into a reminder system with a target due date for their next mammogram.
== END 2021-08-01 10:51 | disposition home or self-care (01) ==
LOC: HO.MAMMO 10:50
PROVIDERS: PCP Internal Medicine; Visit Provider Internal Medicine
DX: Z12.31 Encounter for screening mammogram for malignant neoplasm of breast (principal)
CPT/HCPCS: 77063; 77067

== ENCOUNTER → 2021-08-29 12:20 | Outpatient (BNVA) | payer OTHER, SELFPAY | PROVIDERS: PCP Internal Medicine; Referring Provider Internal Medicine; Visit Provider Physician Assistant | DX: Z01.818 Encounter for other preprocedural examination (principal) | CPT/HCPCS: 99202 ==

== ENCOUNTER 2021-10-08 09:52 | Outpatient (REF) | payer OTHER, SELFPAY ==
[2021-10-08 11:02] LABS: Alanine Aminotransferase 14 U/L (0-31); Albumin Level 3.9 g/dL (3.5-5.0); Alkaline Phosphatase 85 U/L (39-117); Anion Gap 9 (12-20); Aspartate Amino Transferase 18 U/L (5-31); Bilirubin Total 0.4 mg/dL (0.0-1.0); Blood Urea Nitrogen 24 mg/dL (9-16); Calcium 9.3 mg/dL (8.4-10.2); Carbon Dioxide 31 mmol/L (22-29); Chloride 106 mmol/L (96-108); Cholesterol 180 mg/dL; Estimated Glomerular Filt Rate > 60; Glucose Random 105 mg/dL (60-115); HDL Cholesterol 51 mg/dL; LDL Cholesterol Calculated 104 mg/dl; Potassium 4.4 mmol/L (3.3-5.1); Sodium 142 mmol/L (135-145); Total Protein 6.4 g/dL (6.5-8.0); Triglycerides 129 mg/dL
== END 2021-10-08 09:53 | disposition home or self-care (01) ==
LOC: HO.LAB 09:52
PROVIDERS: PCP Internal Medicine; Visit Provider Internal Medicine
DX: E78.00 Pure hypercholesterolemia, unspecified (principal)
CPT/HCPCS: 36415; 80053; 80061

== ENCOUNTER 2022-01-26 11:00 | Outpatient (REF) | payer OTHER, SELFPAY ==
[2022-01-26 14:16] LABS: MANUAL DIFF FLAG NO
[2022-01-26 14:30] LABS: Basophils Percent Auto 0.5 % (0-2); Eosinophils Absolute Auto 0.1 X10*3/uL (0.0-0.4); Eosinophils Percent Auto 1.9 % (0-4); Hematocrit 43.1 % (37.0-47.0); Hemoglobin 13.7 g/dl (12.0-16.0); Imm Gran Abs Auto 0.01 X10*3/uL (0.00-0.03); Imm Gran Pct Auto 0.1 % (0.0-0.4); Lymphocytes Absolute Auto 2.5 X10*3/uL (1.2-4.9); Lymphocytes Percent Auto 33.4 % (20-40); Mean Corpuscular HGB Conc 31.8 g/dl (31.0-35.0); Mean Corpuscular Hemoglobin 28.7 pg (27.0-33.0); Mean Corpuscular Volume 90.4 fL (80.0-98.0); Mean Platelet Volume 10.9 fL (9.4-12.3); Monocytes Absolute Auto 0.5 X10*3/uL (0.1-1.2); Neutrophils Absolute Auto 4.3 x10*3/uL (2.0-8.3); Neutrophils Percent Auto 57.1 % (45-73); Platelet Count 354 X10*3/uL (160-400); Red Blood Count 4.77 X10*6/uL (4.20-5.50); Red Cell Distribution Width 12.3 % (11.0-16.0); White Blood Count 7.5 X10*3/uL (4.8-10.8)
[2022-01-26 14:34] LABS: Estimated Average Glucose 117 mg/dL; Hemoglobin A1c % 5.7 %
[2022-01-26 14:45] LABS: Alanine Aminotransferase 12 U/L (0-31); Albumin Level 4.2 g/dL (3.5-5.0); Alkaline Phosphatase 74 U/L (39-117); Anion Gap 13 (12-20); Aspartate Amino Transferase 20 U/L (5-31); Bilirubin Total 0.4 mg/dL (0.0-1.0); Blood Urea Nitrogen 19 mg/dL (9-16); Calcium 8.9 mg/dL (8.4-10.2); Carbon Dioxide 28 mmol/L (22-29); Chloride 104 mmol/L (96-108); Cholesterol 159 mg/dL; Estimated Glomerular Filt Rate > 60; Glucose Random 106 mg/dL (60-115); HDL Cholesterol 60 mg/dL; LDL Cholesterol Calculated 76 mg/dl; Potassium 4.3 mmol/L (3.3-5.1); Sodium 141 mmol/L (135-145); Triglycerides 118 mg/dL
== END 2022-01-26 11:01 | disposition home or self-care (01) ==
LOC: HO.WFDLDS 11:00
PROVIDERS: Visit Provider Internal Medicine
DX: E78.00 Pure hypercholesterolemia, unspecified (principal)
CPT/HCPCS: 36415; 80053; 80061; 83036; 85025

== ENCOUNTER 2022-02-13 12:24 | Outpatient (REF) | payer OTHER, SELFPAY ==
[2022-02-13 14:05] LABS: Appearance Urine Clear; Color Urine Yellow; Glucose Urine UA Negative (Negative); Leukocyte Esterase Urine Trace (Negative); Nitrite Urine Negative (Negative); UMIC TRIGGER UACC YES; Urine Blood Negative (Negative); Urine Ketones Negative (Negative); Urine Protein Negative (Neg-Trace)
[2022-02-13 14:10] LABS: Bacteria Urine None Seen (None Seen); Hyaline Casts Urine 0-2 /LPF (0-2); RBC Urine 0-2 /HPF (0-2); Squamous Epithelial Cell Urine 0-2 /HPF (0-2); WBC Urine 0-5 /HPF (0-5)
== END 2022-02-13 12:25 | disposition home or self-care (01) ==
LOC: HO.WFDLDS 12:24
PROVIDERS: Visit Provider Internal Medicine
DX: N39.0 Urinary tract infection, site not specified (principal)
CPT/HCPCS: 81001; 81003

== ENCOUNTER 2022-04-18 15:43 | Outpatient (REF) | payer OTHER, SELFPAY ==
[2022-04-19 12:45] LABS: Influenza A PCR NEGATIVE (Negative); Influenza B PCR NEGATIVE (Negative); Resp Syncy Virus RNA Qual PCR NEGATIVE (Negative); SARS COV2 PCR INHOUSE NEGATIVE (Negative)
== END 2022-04-18 15:44 | disposition home or self-care (01) ==
LOC: HO.LAB 15:43
PROVIDERS: Visit Provider Nurse Practitioner Family
DX: Z20.822 Contact with and (suspected) exposure to COVID-19 (principal); R09.89 Other specified symptoms and signs involving the circulatory and respiratory systems
CPT/HCPCS: 0241U

== ENCOUNTER 2022-05-08 12:26 | Outpatient (REF) | payer OTHER, SELFPAY ==
[2022-05-08 14:10] LABS: Estimated Average Glucose 128 mg/dL; Hemoglobin A1c % 6.1 %
[2022-05-08 14:41] LABS: Alanine Aminotransferase 15 U/L (0-31); Albumin Level 4.1 g/dL (3.5-5.0); Alkaline Phosphatase 86 U/L (39-117); Anion Gap 12 (12-20); Aspartate Amino Transferase 20 U/L (5-31); Bilirubin Total 0.6 mg/dL (0.0-1.0); Blood Urea Nitrogen 13 mg/dL (9-16); Calcium 9.3 mg/dL (8.4-10.2); Carbon Dioxide 29 mmol/L (22-29); Chloride 105 mmol/L (96-108); Cholesterol 225 mg/dL; Estimated Glomerular Filt Rate > 60; Free T4 (Free Thyroxine) 1.29 ng/dL (0.71-1.85); Glucose Random 108 mg/dL (60-115); HDL Cholesterol 57 mg/dL; LDL Cholesterol Calculated 142 mg/dl; Potassium 4.2 mmol/L (3.3-5.1); Sodium 142 mmol/L (135-145); Thyroid Stimulating Hormone 3.34 uIU/mL (0.32-4.0); Total Protein 6.7 g/dL (6.5-8.0); Triglycerides 133 mg/dL; Vitamin D 25-OH Total 36.2 ng/mL (>30)
[2022-05-08 14:56] LABS: Folate 16.8 ng/mL (> or = 4.0); Vitamin B12 900 pg/mL (200-900)
== END 2022-05-08 12:27 | disposition home or self-care (01) ==
LOC: HO.WFDLDS 12:26
PROVIDERS: Visit Provider Internal Medicine
DX: E78.00 Pure hypercholesterolemia, unspecified (principal); E11.65 Type 2 diabetes mellitus with hyperglycemia
CPT/HCPCS: 36415; 80053; 80061; 82306; 82607; 82746; 83036; 84439; 84443

== ENCOUNTER 2022-08-08 10:07 | Outpatient (REF) | payer OTHER, SELFPAY ==
[2022-08-08 12:34] LABS: Alanine Aminotransferase 25 U/L (0-31); Albumin Level 4.1 g/dL (3.5-5.0); Alkaline Phosphatase 99 U/L (39-117); Anion Gap 13 (12-20); Aspartate Amino Transferase 29 U/L (5-31); Bilirubin Total 0.7 mg/dL (0.0-1.0); Blood Urea Nitrogen 14 mg/dL (9-16); Calcium 8.9 mg/dL (8.4-10.2); Carbon Dioxide 29 mmol/L (22-29); Chloride 105 mmol/L (96-108); Cholesterol 193 mg/dL; Estimated Glomerular Filt Rate > 60; Glucose Random 111 mg/dL (60-115); HDL Cholesterol 58 mg/dL; LDL Cholesterol Calculated 116 mg/dl; Potassium 4.2 mmol/L (3.3-5.1); Sodium 143 mmol/L (135-145); Total Protein 6.5 g/dL (6.5-8.0); Triglycerides 99 mg/dL
== END 2022-08-08 10:08 | disposition home or self-care (01) ==
LOC: HO.WFDLDS 10:07
PROVIDERS: Visit Provider Internal Medicine
DX: E78.00 Pure hypercholesterolemia, unspecified (principal)
CPT/HCPCS: 36415; 80053; 80061

== ENCOUNTER 2022-10-02 11:00 | Outpatient (RCR) | payer OTHER, SELFPAY ==
[2022-08-22 12:36] VITALS: BP 130/60; PULSE 86; O2SAT 96
== END 2023-05-08 11:12 | disposition home or self-care (01) ==
LOC: HO.PTWFD 11:00
PROVIDERS: PCP Internal Medicine; Visit Provider Internal Medicine
DX: R42 Dizziness and giddiness (principal)
CPT/HCPCS: 97110; 97150; 97162; 97530; 97535

== ENCOUNTER 2022-11-17 10:46 | Outpatient (REF) | payer OTHER, SELFPAY ==
[2022-11-17 14:23] LABS: Alanine Aminotransferase 24 U/L (0-31); Albumin Level 3.8 g/dL (3.5-5.0); Alkaline Phosphatase 107 U/L (39-117); Anion Gap 13 (12-20); Aspartate Amino Transferase 24 U/L (5-31); Bilirubin Total 0.6 mg/dL (0.0-1.0); Blood Urea Nitrogen 14 mg/dL (9-16); Calcium 9.3 mg/dL (8.4-10.2); Carbon Dioxide 26 mmol/L (22-29); Chloride 106 mmol/L (96-108); Cholesterol 162 mg/dL; Estimated Glomerular Filt Rate > 60; Glucose Random 117 mg/dL (60-115); HDL Cholesterol 54 mg/dL; LDL Cholesterol Calculated 86 mg/dl; Potassium 3.9 mmol/L (3.3-5.1); Sodium 141 mmol/L (135-145); Total Protein 6.8 g/dL (6.5-8.0); Triglycerides 113 mg/dL
== END 2022-11-17 10:47 | disposition home or self-care (01) ==
LOC: HO.WFDLDS 10:46
PROVIDERS: Visit Provider Internal Medicine
DX: E78.00 Pure hypercholesterolemia, unspecified (principal)
CPT/HCPCS: 36415; 80053; 80061

== ENCOUNTER 2023-03-05 11:18 | Outpatient (AMB) | payer OTHER, SELFPAY ==
[2023-03-05 11:19] VITALS: BP 112/86; PULSE 68; O2SAT 97; BMI 42.8
--- NOTE | 2023-03-05 11:19 | MHC.PC.OV ---
Vital Signs 03/05/23 11:19 Height 5 ft 2 in Weight 234 lb BMI 42.8 BP 112/86 Blood Pressure Location Lt brachial Position Sitting Pulse 68 Pulse Source Pulse Oximeter Temp Source Skin Pulse Oximetry (%) 97 Oxygen Delivery Method Room Air Intake Visit Reasons: obesity Cafe Cook Required: No Allergies metformin Adverse Reaction (Intermediate, Verified 03/05/23 11:20) nausea simvastatin Adverse Reaction (Intermediate, Verified 03/05/23 11:20) tiredness Medication List - Last Reconciled 03/05/23 by Yael Hoskins MD atorvastatin 20 mg PO DAILY 30 days biotin mg PO blood sugar diagnostic (FreeStyle Lite Strips) As directed check the blood sugars once a day blood-glucose meter (FreeStyle [place] Lite kit) As directed diclofenac sodium 75 mg PO DAILY PRN 90 days lancets (FreeStyle Lancets) As directed, check the BS QD loratadine 10 mg PO DAILY 90 days multivitamin 1 tab PO DAILY omeprazole 20 mg PO DAILY semaglutide 0.25 mg (0.368 mL) subcut QWEEK Tobacco use date assessed: 03/05/23 Dental Screening Dental Screen Date: 03/05/23 Did you have a dental visit in the last 12 months?: Yes Did you have a dental problem in the last 6 months where you did not have access to dental care?: No Was dental information given to patient?: Patient has dentist HPI obesity HPI Details 52-year-old obese female with a history of laparoscopic sleeve gastrectomy has diabetes mellitus GERD hypercholesterolemia last seen in November 2022. Patient is here for follow-up. Mammogram is due hot flashes and takes over the counter - [employer] PRimrose. reminded mammo. hx of s/p chlecystectomy RUQ pain - tender on [palpation., no n no v no fevers, BP good. no frequency, no dysuria PFSH Medical History (Updated 03/05/23 @ 11:41 by Yael Hoskins MD) Viral upper respiratory illness UTI (urinary tract infection) Obesity (BMI 30-39.9) Viral illness BMI 33.0-33.9,adult Esophagitis Liver fibrosis Steatosis, liver ATUL (obstructive sleep apnea) COVID-19 vaccine administered Arthritis History of postoperative nausea Diabetes Allergic rhinitis Morbid obesity Impaired glucose tolerance Asthma Osteoarthritis of right knee Hypercholesterolemia Obesity 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 Right carpal tunnel syndrome Vitamin D deficiency GERD (gastroesophageal reflux disease) Sinus infection Seasonal allergies Menopausal vaginal dryness Post-menopausal bleeding Surgical History History of sleeve gastrectomy History of right salpingo-oophorectomy Hx of laparoscopic gastric banding History of esophagogastroduodenoscopy (EGD) History of cholecystectomy Hx of tubal ligation Hx of section Family History Mother Diabetes HTN (hypertension) High cholesterol Father Heart disease Social History Housing: Apartment Are you a primary healthcare network pricing consultant to a significant other at home: No Do you presently have visiting nurse or other home services: No Alcohol intake: former Patient Tobacco Use Status: Former Tobacco user Tobacco use type: Cigarette Years Smoked: 25 e-Cigarette/Vaping Use: Never Used Second Hand Smoke Exposure: No service: No Current occupational status: employed Current occupational exposures/hazards: No Sexual orientation: Straight/Heterosexual Gender identity: Female Cognitive needs: No Hearing needs: No Vision needs: Yes Female Reproductive History Menstrual Age of Menarche: 11 Questionnaire Thrive Questionnaire Date Thrive assessed: 11/20/22 AUDIT C Alcohol Use Questionnaire (AUDIT-C) 1. How often do you have a drink containing alcohol?: Never 3. How often do you have six or more drinks on one occasion?: Never Total Score: 0 AMBER-7 AMB Questionnaire AMBER-7 Date AMBER - 7 assessed: 08/14/22 Source: Developed by Drs. Ayan Whittaker, Felicitas Dhillon, Sina Andujar and colleagues, with an educational suresh from [employer]. Physical exam (Primary Care) Vital Signs: Last Vital Signs Pulse 68 03/05/23 11:19 BP 112/86 03/05/23 11:19 Pulse Ox 97 03/05/23 11:19 Oxygen Delivery Method Room Air 03/05/23 11:19 BMI result Body Mass Index 42.8 Tobacco/Smoking Status: Tobacco use Status Tobacco use date assessed 03/05/23 03/05/23 11:21 Patient Tobacco Use Status Former Tobacco user 03/05/23 11:21 Tobacco use type Cigarette 03/05/23 11:21 e-Cigarette/Vaping Use Never Used 03/05/23 11:21 Thrive Assessment: Date of Thrive Assessment Date Thrive assessed 11/20/22 03/05/23 11:21 Const General: alert; No acute distress Eyes Conjunctivae: conjunctivae normal Resp Auscultation: clear to auscultation bilaterally Cardio Rate: regular rate Rhythm: regular rhythm GI Inspection: Yes normal to inspection Extrem General: Yes normal to inspection and No edema Results AMB Hemoglobin A1c AMB Hemoglobin A1c 6.1 % Last Edit by RUBEN Waldron on 03/05/23 11:32 Results Reviewed Results Reviewed: Laboratory Last Values Hgb A1c (Clinic) 6.1 % (4.0-6.0) H 03/05/23 11:02 Assessment and Plan Assessment & Plan (1) S/P laparoscopic sleeve gastrectomy: Code(s): Z98.84 - Bariatric surgery status (2) Type 2 diabetes mellitus with hyperglycemia: Comment: Dr. Echeverria Code(s): E11.65 - Type 2 diabetes mellitus with hyperglycemia Qualifiers: Diabetes mellitus nursing home insulin use: without nursing home use Qualified Code(s): E11.65 - Type 2 diabetes mellitus with hyperglycemia Plan: Decrease the amount of carbohydrate intake, pasta, bread, rice and potatoes are all sugar and that is aside from all the sweet stuff, remember that fruits are good but they are Sweet also. Hemoglobin A1c goal of less than 6.5. Patient is on diet control on (3) Obesity: Code(s): E66.9 - Obesity, unspecified Qualifiers: Body mass index: BMI 45.0-49.9 Obesity classification: adult class 3 (BMI >= 40) Obesity type: due to excess calories Serious obesity comorbidity presence: without serious comorbidity Qualified Code(s): E66.01 - Morbid (severe) obesity due to excess calories; Z68.42 - Body mass index [BMI] 45.0-49.9, adult Plan: Diet and exercise will start on semaglutide (4) Hypercholesterolemia: Code(s): E78.00 - Pure hypercholesterolemia, unspecified Plan: Avoid fried foods, chicken skin, eggs, butter margarine, pastries and meat. Be it pork or beef they have a lot of cholesterol LDL goal of less than 100 and triglyceride of less than 150. Patient on atorvastatin 20 mg once a day October 2022 LDL of 86 (5) GERD (gastroesophageal reflux disease): Comment: uses omeprazole prn Code(s): K21.9 - Gastro-esophageal reflux disease without esophagitis Qualifiers: Esophagitis presence: without esophagitis Qualified Code(s): K21.9 - Gastro-esophageal reflux disease without esophagitis Plan: Avoid the foods that causes that usually spicy foods, tomato products, juices, coffee, soda and foods that your sensitive to. After eating do not lie down, allow 3-4 hours before in lie down. And keep the head of bed above 30 degrees to avoid the acid from going up. (6) Breast cancer screening by mammogram: Code(s): Z12.31 - Encounter for screening mammogram for malignant neoplasm of breast Plan: Patient's reminded about the mammogram (7) Plantar fasciitis, bilateral: Code(s): M72.2 - Plantar fascial fibromatosis Plan: Discussed about treatment and causes of plantar fasciitis patient is given the pamphlet (8) Epigastric pain: Code(s): R10.13 - Epigastric pain Plan: Ultrasound request (9) Colon cancer screening: Comment: Index screening colonoscopy with anesthesia consult history asthma and ATUL Code(s): Z12.11 - Encounter for screening for malignant neoplasm of colon Plan: Reminded about the Cologuard test Orders: Orders US abdomen complete Today R10.13 - Epigastric pain, R79.89 - Other specified abnormal findings of blood chemistry AMB Hemoglobin A1c Today Z13.9 - Encounter for screening, unspecified Medications: New semaglutide for 4 weeks 0.25 mg (0.368 mL) subcut QWEEK 3 mL 1RF E11.65 - Type 2 diabetes mellitus with hyperglycemia Discontinued diclofenac sodium Discontinued Reason: Doctor's Order 75 mg PO DAILY 90 days PRN 90 tabs 0RF pain M17.0 - Bilateral primary osteoarthritis of knee liraglutide (weight loss) (Saxenda) Discontinued Reason: Ancillary Entered New Order inject subcutaneously once daily: week 1 = 0.6 mg; week 2 = 1.2 mg; week 3 = 1.8 mg; week 4 = 2.4 mg; then 3 mg daily subcut 15 mL 2RF E66.01 - Morbid (severe) obesity due to excess calories, Z68.42 - Body mass index [BMI] 45.0-49.9, adult Coding Level of Care Code Est Pt Level 4 (48627) Diagnoses S/P laparoscopic sleeve gastrectomy Z98.84 Type 2 diabetes mellitus with hyperglycemia, without long-term current use of insulin E11.65 Diabetes mellitus middle or intermediate school principal insulin use: without middle or intermediate school principal use Class 3 severe obesity due to excess calories without serious comorbidity with body mass index (BMI) of 45.0 to 49.9 in adult E66.01; Z68.42 Body mass index: BMI 45.0-49.9 Obesity classification: adult class 3 (BMI >= 40) Obesity type: due to excess calories Serious obesity comorbidity presence: without serious comorbidity Hypercholesterolemia E78.00 Gastroesophageal reflux disease without esophagitis K21.9 Esophagitis presence: without esophagitis Breast cancer screening by mammogram Z12.31 Plantar fasciitis, bilateral M72.2 Epigastric pain R10.13 Colon cancer screening Z12.11
== END 2023-03-05 11:52 | disposition home or self-care (01) ==
PROVIDERS: PCP Internal Medicine; Visit Provider Internal Medicine
DX: E11.65 Type 2 diabetes mellitus with hyperglycemia (principal)
CPT/HCPCS: 83036; 99214

== ENCOUNTER 2023-04-02 08:49 | Outpatient (REF) | payer OTHER, SELFPAY ==
--- NOTE | ~2023-04-02 | US_ITS ---
EXAMINATION: US ABDOMEN COMPLETE CLINICAL INFORMATION: Epigastric pain. COMPARISON: CT abdomen and pelvis with contrast 05/23/2021. US abdomen complete with liver elastography 06/07/2020. TECHNIQUE: Real-time imaging of the abdominal viscera. Limited visualization due to bowel gas. FINDINGS: PANCREAS: Limited visualization of pancreatic tail and head. Imaged portion of pancreatic body is unremarkable. ABDOMINAL AORTA: Limited visualization of the abdominal aorta. Imaged portions of the [id number] abdominal aorta are unremarkable. INFERIOR VENA CAVA: Visualized portions are normal. LIVER: Increased hepatic parenchymal heterogeneity and echogenicity which could be associated with hepatic steatosis or hepatocellular disease and substantially limits visualization. GALLBLADDER: Surgically absent. COMMON BILE DUCT: Normal in caliber measuring 0.6 cm in diameter. RIGHT KIDNEY: Tiny echogenic focus midpole right kidney may represent vascular calcification versus tiny calculus. No hydronephrosis. Limited visualization. The kidney measures 10.9 cm in maximum dimension. LEFT KIDNEY: No hydronephrosis. No renal calculi. Limited visualization. The kidney measures 11.2 cm in maximum dimension. SPLEEN: Normal. The spleen measures 10.8 cm in maximum dimension. FREE FLUID: None. US/US abdomen complete IMPRESSION: 1. Increased hepatic parenchymal heterogeneity and echogenicity which could be associated with hepatic steatosis or hepatocellular disease and substantially limits visualization. 2. Gallbladder surgically absent. 3. Tiny echogenic focus midpole right kidney may represent vascular calcification versus tiny calculus. No hydronephrosis. Limited visualization. 4. The bilateral renal cysts identified on CT scan of 05/23/2021 is not clearly identified, however, visualization is limited due to bowel gas. 5. Limited visualization. CT scan could be considered for better visualization.
== END 2023-04-02 08:50 | disposition home or self-care (01) ==
LOC: HO.US 08:49
PROVIDERS: PCP Internal Medicine; Visit Provider Internal Medicine
DX: R10.13 Epigastric pain (principal); R79.89 Other specified abnormal findings of blood chemistry
CPT/HCPCS: 76700

== ENCOUNTER 2023-05-29 15:22 | Outpatient (REF) | payer OTHER, SELFPAY ==
--- NOTE | ~2023-05-29 | XR_ITS ---
EXAMINATION: XR SHOULDER, RIGHT CLINICAL INFORMATION: Right shoulder pain COMPARISON: None available. TECHNIQUE: AP external rotation, Grashey, scapular Y, and axillary views of the right shoulder. FINDINGS: Calcification is evident at the insertion site of the supraspinatus in the greater tuberosity consistent with calcific tendinosis. There are acromioclavicular proliferative changes. No fracture or dislocation is detected. The glenohumeral articulation is preserved. XR/XR shoulder RT min 2V IMPRESSION: 1. Supraspinatus calcific tendinosis. 2. Acromioclavicular hypertrophic and proliferative changes.
== END 2023-05-29 15:23 | disposition home or self-care (01) ==
LOC: HO.XRAY 15:22
PROVIDERS: PCP Internal Medicine; Visit Provider Physician Assistant
DX: M25.511 Pain in right shoulder (principal)
CPT/HCPCS: 73030

== ENCOUNTER 2023-06-12 15:28 | Outpatient (AMB) | payer OTHER, SELFPAY ==
[2023-06-12 15:29] VITALS: BP 104/72; PULSE 95; O2SAT 100; BMI 39.9
--- NOTE | 2023-06-12 15:29 | A.OFFPC_ITS ---
Vital Signs 06/12/23 15:29 Height 5 ft 2 in Weight 218 lb 0.8 oz BMI 39.9 BP 104/72 Blood Pressure Location Lt brachial Position Sitting Pulse 95 Pulse Source Pulse Oximeter Pulse Oximetry (%) 100 Oxygen Delivery Method Room Air Intake Visit Reasons: 3 month f/u International Tax Manager Required: No Allergies metformin Adverse Reaction (Intermediate, Verified 06/12/23 15:30) nausea simvastatin Adverse Reaction (Intermediate, Verified 06/12/23 15:30) tiredness Medication List - Last Reconciled 06/12/23 by Yael Hoskins MD atorvastatin 20 mg PO DAILY 30 days biotin mg PO blood sugar diagnostic (FreeStyle Lite Strips) As directed check the blood suga rs once a day blood-glucose meter (FreeStyle [place] Lite kit) As directed dulaglutide 1.5 mg (0.5 mL) subcut QWEEK 30 days lancets (FreeStyle Lancets) As directed, check the BS QD loratadine 10 mg PO DAILY 90 days multivitamin 1 tab PO DAILY omeprazole 20 mg PO DAILY tramadol 50 mg PO DAILY Tobacco use date assessed: 06/12/23 HPI 3 month f/u HPI Details 52-year-old obese female with a history of hypercholesterolemia hepatic steatosis GERD history of laparoscopic sleeve gastrectomy and banding last seen in February 2023. Review of the notes has seen Orthopedics through [facility] for right shoulder calcific tendonitis and had injections done. Patient is asking for a letter to be given to the landlord so that taken clean her path early so she does not fall down patient has been doing fine with losing weight with the Trulicity at 1.5. [facility] Medical History (Updated 06/12/23 @ 16:10 by Yael Hoskins MD) Viral upper respiratory illness UTI (urinary tract infection) Obesity (BMI 30-39.9) Viral illness BMI 33.0-33.9,adult Esophagitis Liver fibrosis Steatosis, liver ATUL (obstructive sleep apnea) COVID-19 vaccine administered Arthritis History of postoperative nausea Diabetes Allergic rhinitis Morbid obesity Impaired glucose tolerance Asthma Osteoarthritis of right knee Hypercholesterolemia Obesity 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 Right carpal tunnel syndrome Vitamin D deficiency GERD (gastroesophageal reflux disease) Sinus infection Seasonal allergies Menopausal vaginal dryness Post-menopausal bleeding Surgical History History of sleeve gastrectomy History of right salpingo-oophorectomy Hx of laparoscopic gastric banding History of esophagogastroduodenoscopy (EGD) History of cholecystectomy Hx of tubal ligation Hx of section Family History Mother Diabetes HTN (hypertension) High cholesterol Father Heart disease Social History Housing: Apartment Are you a primary primary health care nurse to a significant other at home: No Do you presently have visiting nurse or other home services: No Alcohol intake: former Patient Tobacco Use Status: Former Tobacco user Tobacco use type: Cigarette Years Smoked: 25 e-Cigarette/Vaping Use: Never Used Second Hand Smoke Exposure: No service: No Current occupational status: employed Current occupational exposures/hazards: No Sexual orientation: Straight/Heterosexual Gender identity: Female Cognitive needs: No Hearing needs: No Vision needs: Yes Female Reproductive History Menstrual Age of Menarche: 11 Questionnaire Thrive Questionnaire Date Thrive assessed: 11/20/22 AUDIT C Alcohol Use Questionnaire (AUDIT-C) 1. How often do you have a drink containing alcohol?: Never 3. How often do you have six or more drinks on one occasion?: Never Total Score: 0 AMBER-7 AMB Questionnaire AMBER-7 Date AMBER - 7 assessed: 08/14/22 Source: Developed by Drs. Ayan Whittaker, Felicitas Dhillon, Sina Andujar and colleagues, with an educational suresh from [employer]. Physical exam (Primary Care) Vital Signs: Last Vital Signs Pulse 95 06/12/23 15:29 BP 104/72 06/12/23 15:29 Pulse Ox 100 06/12/23 15:29 Oxygen Delivery Method Room Air 06/12/23 15:29 BMI result Body Mass Index 39.9 Tobacco/Smoking Status: Tobacco use Status Tobacco use date assessed 06/12/23 06/12/23 15:31 Patient Tobacco Use Status Former Tobacco user 06/12/23 15:31 Tobacco use type Cigarette 06/12/23 15:31 e-Cigarette/Vaping Use Never Used 06/12/23 15:31 Thrive Assessment: Date of Thrive Assessment Date Thrive assessed 11/20/22 06/12/23 15:31 Const General: alert; No acute distress Eyes Conjunctivae: conjunctivae normal Resp Auscultation: clear to auscultation bilaterally Cardio Rate: regular rate Rhythm: regular rhythm GI Inspection: Yes normal to inspection Extrem General: Yes normal to inspection and No edema Results AMB Hemoglobin A1c AMB Hemoglobin A1c 5.5 % Last Edit by RUBEN Waldron on 06/12/23 15:44 Results Reviewed Results Reviewed: Laboratory Last Values Hgb A1c (Clinic) 5.5 % (4.0-6.0) 06/12/23 14:38 Assessment and Plan Assessment & Plan (1) Type 2 diabetes mellitus with hyperglycemia: Comment: Dr. Echeverria Code(s): E11.65 - Type 2 diabetes mellitus with hyperglycemia Qualifiers: Diabetes mellitus long-term insulin use: without terminal make up operator use Qualified Code(s): E11.65 - Type 2 diabetes mellitus with hyperglycemia Plan: Decrease the amount of carbohydrate intake, pasta, bread, rice and potatoes are all sugar and that is aside from all the sweet stuff, remember that fruits are good but they are Sweet also. Hemoglobin A1c goal of less than 6.5. Patient on Trulicity 1.5 mg once a week (2) S/P laparoscopic sleeve gastrectomy: Code(s): Z98.84 - Bariatric surgery status Plan: Continue to follow-up with bariatric surgeon (3) S/P repair of paraesophageal hernia: Code(s): Z98.890 - Other specified postprocedural states; Z87.19 - Personal history of other diseases of the digestive system Plan: Avoid the foods that causes that usually spicy foods, tomato products, juices, coffee, soda and foods that your sensitive to. After eating do not lie down, allow 3-4 hours before in lie down. And keep the head of bed above 30 degrees to avoid the acid from going up. (4) Obesity (BMI 30-39.9): Code(s): E66.9 - Obesity, unspecified Plan: Diet and exercise (5) Steatosis, liver: Code(s): K76.0 - Fatty (change of) liver, not elsewhere classified Plan: Low-fat diet and exercise (6) Hypercholesterolemia: Code(s): E78.00 - Pure hypercholesterolemia, unspecified Plan: Avoid fried foods, chicken skin, eggs, butter margarine, pastries and meat. Be it pork or beef they have a lot of cholesterol LDL goal of less than 100 and triglyceride of less than 150 patient is on atorvastatin 20 0 mg once a day (7) GERD (gastroesophageal reflux disease): Comment: uses omeprazole prn Code(s): K21.9 - Gastro-esophageal reflux disease without esophagitis Qualifiers: Esophagitis presence: without esophagitis Qualified Code(s): K21.9 - Gastro-esophageal reflux disease without esophagitis Plan: Avoid the foods that causes that usually spicy foods, tomato products, juices, coffee, soda and foods that your sensitive to. After eating do not lie down, allow 3-4 hours before in lie down. And keep the head of bed above 30 degrees to avoid the acid from going up. (8) Calcific tendinitis of right shoulder: Code(s): M75.31 - Calcific tendinitis of right shoulder (9) Bilateral primary osteoarthritis of knee: Code(s): M17.0 - Bilateral primary osteoarthritis of knee Orders: Orders AMB Hemoglobin A1c Today E11.65 - Type 2 diabetes mellitus with hyperglycemia Comprehensive Met. Panel 3 Months E11.65 - Type 2 diabetes mellitus with hyperglycemia Free T4 (Free Thyroxine) 3 Months E11.65 - Type 2 diabetes mellitus with hyperglycemia Thyroid Stimulating Hormone 3 Months E11.65 - Type 2 diabetes mellitus with hyperglycemia Microalbumin, Random (w Creat) 3 Months E11.65 - Type 2 diabetes mellitus with hyperglycemia Complete Blood Count Auto Diff 3 Months E11.65 - Type 2 diabetes mellitus with hyperglycemia Lipid Panel 3 Months E11.65 - Type 2 diabetes mellitus with hyperglycemia, E78.00 - Pure hypercholesterolemia, unspecified Hemoglobin A1c 3 Months E11.65 - Type 2 diabetes mellitus with hyperglycemia Vitamin B12 and Folate 3 Months E11.65 - Type 2 diabetes mellitus with hyperglycemia Creatinine Urine 3 Months E11.65 - Type 2 diabetes mellitus with hyperglycemia Vitamin D 25-OH Total 3 Months E11.65 - Type 2 diabetes mellitus with hyperglycemia Medications: New tramadol 50 mg PO DAILY 30 tabs 0RF M17.0 - Bilateral primary osteoarthritis of knee Coding Level of Care Code Est Pt Level 4 (31502) Diagnoses Type 2 diabetes mellitus with hyperglycemia, without long-term current use of insulin E11.65 Diabetes mellitus terminal make up operator insulin use: without long-term use S/P laparoscopic sleeve gastrectomy Z98.84 S/P repair of paraesophageal hernia Z98.890; Z87.19 Obesity (BMI 30-39.9) E66.9 Steatosis, liver K76.0 Hypercholesterolemia E78.00 Gastroesophageal reflux disease without esophagitis K21.9 Esophagitis presence: without esophagitis Calcific tendinitis of right shoulder M75.31 Bilateral primary osteoarthritis of knee M17.0
== END 2023-06-12 16:26 | disposition home or self-care (01) ==
PROVIDERS: PCP Internal Medicine; Visit Provider Internal Medicine
DX: E11.65 Type 2 diabetes mellitus with hyperglycemia (principal); E66.9 Obesity, unspecified; Z68.39 Body mass index [BMI] 39.0-39.9, adult; Z98.84 Bariatric surgery status; K76.0 Fatty (change of) liver, not elsewhere classified; E78.00 Pure hypercholesterolemia, unspecified; K21.9 Gastro-esophageal reflux disease without esophagitis; M75.31 Calcific tendinitis of right shoulder; M17.0 Bilateral primary osteoarthritis of knee
CPT/HCPCS: 83036; 99214

== ENCOUNTER 2023-08-28 12:40 | Outpatient (REF) | payer OTHER, SELFPAY ==
[2023-08-28 14:22] LABS: Appearance Urine Cloudy; Color Urine Yellow; Glucose Urine UA Negative (Negative); Leukocyte Esterase Urine Large (3+) (Negative); Nitrite Urine Negative (Negative); Specific Gravity - Urine 1.015 (1.005-1.025); UMIC TRIGGER UACC YES; Urine Blood Large (3+) (Negative); Urine Ketones Negative (Negative); Urine Protein 30 (1+) mg/dL (Neg-Trace)
[2023-08-28 14:26] LABS: Bacteria Urine None Seen (None Seen); Hyaline Casts Urine 0-2 /LPF (0-2); RBC Urine >20 /HPF (0-2); Squamous Epithelial Cell Urine 0-2 /HPF (0-2); UACC Culture Trigger YES; WBC Urine >50 /HPF (0-5)
== END 2023-08-28 12:41 | disposition home or self-care (01) ==
LOC: HO.LNP 12:40
PROVIDERS: Visit Provider Internal Medicine
DX: R39.9 Unspecified symptoms and signs involving the genitourinary system (principal)
CPT/HCPCS: 81001; 87086

== ENCOUNTER 2023-09-10 15:57 | Outpatient (AMB) | payer OTHER, SELFPAY ==
--- NOTE | 2023-09-10 15:58 | A.OFFPC_ITS ---
Intake Visit Reasons: had a fall wants xrays Allergies metformin Adverse Reaction (Intermediate, Verified 09/10/23 15:58) nausea simvastatin Adverse Reaction (Intermediate, Verified 09/10/23 15:58) tiredness Medication List - Last Reconciled 09/10/23 by Yael Hoskins MD atorvastatin 20 mg PO DAILY 30 days biotin mg PO blood sugar diagnostic (FreeStyle Lite Strips) As directed check the blood sugars once a day blood-glucose meter (FreeStyle [place] Lite kit) As directed dulaglutide 3 mg (0.5 mL) subcut QWEEK 30 days hydrocortisone 2.5% (Proctosol HC) 1 appl [place] BID-QID PRN ibuprofen 600 mg PO TID PRN lancets (FreeStyle Lancets) As directed, check the BS QD loratadine 10 mg PO DAILY 90 days multivitamin 1 tab PO DAILY omeprazole 20 mg PO DAILY tramadol 50 mg PO DAILY Tobacco use date assessed: 06/12/23 Dental Screening Dental Screen Date: 09/10/23 Did you have a dental visit in the last 12 months?: Yes Did you have a dental problem in the last 6 months where you did not have access to dental care?: No Was dental information given to patient?: Patient has dentist HPI had a fall wants xrays HPI Details 52-year-old obese female with diabetes m ellitus status post laparoscopic sleeve gastrectomy fatty liver hypercholesterolemia GERD last seen in May 2023 calling in for an acute problem. Patient recently had a fall4 days ago taking a do for a walk, L shoulder is painful and R knee pain- no bruise and pain PFSH Medical History (Updated 09/10/23 @ 18:12 by Yael Hoskins MD) Viral upper respiratory illness UTI (urinary tract infection) Obesity (BMI 30-39.9) Viral illness BMI 33.0-33.9,adult Esophagitis Liver fibrosis Steatosis, liver ATUL (obstructive sleep apnea) COVID-19 vaccine administered Arthritis History of postoperative nausea Diabetes Allergic rhinitis Morbid obesity Impaired glucose tolerance Asthma Osteoarthritis of right knee Hypercholesterolemia Obesity 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 Right carpal tunnel syndrome Vitamin D deficiency GERD (gastroesophageal reflux disease) Sinus infection Seasonal allergies Menopausal vaginal dryness Post-menopausal bleeding Surgical History History of sleeve gastrectomy History of right salpingo-oophorectomy Hx of laparoscopic gastric banding History of esophagogastroduodenoscopy (EGD) History of cholecystectomy Hx of tubal ligation Hx of section Family History (Updated 09/10/23 @ 16:03 by Jess Espinal [facility]) Mother Diabetes HTN (hypertension) High cholesterol Father Heart disease Social History Housing: Apartment Are you a primary animal care taker to a significant other at home: No Do you presently have visiting nurse or other home services: No Alcohol intake: former Patient Tobacco Use Status: Former Tobacco user Tobacco use type: Cigarette Years Smoked: 25 e-Cigarette/Vaping Use: Never Used Second Hand Smoke Exposure: No service: No Current occupational status: employed Current occupational exposures/hazards: No Sexual orientation: Straight/Heterosexual Gender identity: Female Cognitive needs: No Hearing needs: No Vision needs: Yes Female Reproductive History Menstrual Age of Menarche: 11 Questionnaire PHQ-9 Over the last 2 weeks, how often have you been bothered by any of the following problems? 1. Little interest or pleasure in doing things: not at all 2. Feeling down, depressed, or hopeless: not at all 3. Trouble falling or staying asleep, or sleeping too much: not at all 4. Feeling tired or having little energy: not at all 5. Poor appetite or overeating: not at all 6. Feeling bad about yourself - or that you are a failure or have let yourself or your family down: not at all 7. Trouble concentrating on things, such as reading the newspaper or watching television: not at all 8. Moving or speaking so slowly that other people could have noticed. Or the opposite - being so fidgety or restless that you have been moving around a lot more than usual: not at all 9. Thoughts that you would be better off or of hurting yourself in some way: not at all Total score: 0 Depression Screening Interpretation: Negative Depression Screening Done: Yes Source: Developed by Drs. Ayan Whittaker, Felicitas Dhillon, Sina Andujar and colleagues, with an educational suresh from [employer]. Thrive Questionnaire Date Thrive assessed: 09/10/23 I am a: Patient What is your living situation today?: I have a steady place to live Within the past 12 months, did the food you bought not last and you didn't have the money to get more?: Never true Within the past 12 months, did you worry whether your food would run out before you got money to buy more?: Never true Do you have trouble paying for medicines?: No Do you have trouble getting transportation to medical appointments?: No Do you have trouble paying your heating and electricity bill?: No Do you have trouble taking care of your child, family member or friend?: No Do you have trouble with day-to-day activities such as bathing, preparing meals, shopping, managing finances, etc.?: No Are you currently unemployed and looking for a job?: No Are you interested in more education?: No Currently or been in a relationship where the following occur: no concerns reported THRIVE Score: 0 AUDIT C Alcohol Use Questionnaire (AUDIT-C) 1. How often do you have a drink containing alcohol?: Never 3. How often do you have six or more drinks on one occasion?: Never Total Score: 0 AMBER-7 AMB Questionnaire AMBER-7 Date AMBER - 7 assessed: 09/10/23 Feeling nervous, anxious, or on edge: 0 = Not at all Not being able to stop or control worryin = Not at all Worrying too much about different things: 0 = Not at all Trouble relaxin = Not at all Being so restless that it is hard to sit still: 0 = Not at all Becoming easily annoyed or irritable: 0 = Not at all Feeling afraid as if something awful might happen: 0 = Not at all Total AMBER-7 score (0-4 normal; 5-9 mild; 10-14 moderate; 15-21 severe): 0 Source: Developed by Drs. Ayan Whittaker, Felicitas Dhillon, Sina Andujar and colleagues, with an educational suresh from [employer]. Physical exam (Primary Care) Tobacco/Smoking Status: Tobacco use Status Tobacco use date assessed 06/12/23 09/10/23 16:01 Patient Tobacco Use Status Former Tobacco user 09/10/23 16:01 Tobacco use type Cigarette 09/10/23 16:01 e-Cigarette/Vaping Use Never Used 09/10/23 16:01 PHQ-9: PHQ-9 Score PHQ-9: Total score 0 04/22/24 16:04 Depression Screening Interpretation: Negative Thrive Assessment: Date of Thrive Assessment Date Thrive assessed 09/10/23 09/10/23 16:04 Currently or been in a relationship where the following occur: no concerns reported Telehealth Telehealth Location of provider rendering services: practice address Location of patient: address on file Patient Identification confirmed using: Name, : Yes Telehealth method: voice only Patient verbally consented to treatment: Yes Patient verbally consented to billing insurance company: Yes Patient informed of any privacy concerns related to visit: Yes Minutes spent on Phone/Video with Pt.: 15 Assessment and Plan Assessment & Plan (1) Fall: Code(s): W19.XXXA - Unspecified fall, initial encounter (2) Left shoulder pain: Code(s): M25.512 - Pain in left shoulder Plan: Discussed about rest, cold compress, elevate and immobilization for the 1st few days but after that have to stretch out. (3) Right knee pain: Code(s): M25.561 - Pain in right knee Plan: Discussed about rest, cold compress, elevate immobilization for the 1st few days but after that stretch it out. Orders: Orders XR knee RT 2V Today M25.561 - Pain in right knee XR shoulder LT min 2V Today M25.512 - Pain in left shoulder Medications: New ibuprofen 600 mg PO TID PRN 30 tabs 0RF pain M25.512 - Pain in left shoulder Discontinued sulfamethoxazole-trimethoprim 800-160 mg (Bactrim DS) Discontinued Reason: Doctor's Order 1 tab PO BID 14 tabs 0RF Coding Level of Care Code Tele Est Pt Level 3 (82059) Diagnoses Fall W19.XXXA Left shoulder pain M25.512 Right knee pain M25.561
== END 2023-09-10 16:30 | disposition home or self-care (01) ==
LOC: HO.HMGH 15:57
PROVIDERS: PCP Internal Medicine; Visit Provider Internal Medicine
DX: M25.512 Pain in left shoulder (principal); M25.561 Pain in right knee; W19.XXXA Unspecified fall, initial encounter
CPT/HCPCS: 99213

== ENCOUNTER 2023-09-11 10:32 | Outpatient (REF) | payer OTHER, SELFPAY ==
--- NOTE | ~2023-09-11 | XR_ITS ---
EXAMINATION: XR SHOULDER, LEFT CLINICAL INFORMATION: Pain in left shoulder COMPARISON: None TECHNIQUE: AP external rotation, Grashey, scapular Y, and axillary views of the left shoulder. FINDINGS: The bones are intact. No fracture. Glenohumeral and acromioclavicular alignment is anatomic with normal glenohumeral joint space. There is moderate degenerative change of the acromioclavicular joint. There is a punctate density adjacent to the humeral head consistent with calcific tendinitis. XR/XR shoulder LT min 2V IMPRESSION: 1. Calcific tendinitis. 2. Moderate degenerative change of the acromioclavicular joint.
--- NOTE | ~2023-09-11 | XR_ITS ---
EXAMINATION: XR KNEE, RIGHT CLINICAL INFORMATION: Pain in right knee COMPARISON: Right knee 01/10/2021 TECHNIQUE: Four views of the right knee. FINDINGS: There is no significant interval change. No fracture or dislocation. No destructive bony process. Bone mineralization is normal. There is mild thickening of the suprapatellar bursa without overt effusion. Hoffa's fat pad is unremarkable. Alignment is anatomic. There is mild narrowing of the lateral patellofemoral joint with small lateral patellar spur. No abnormal soft tissue calcification. XR/XR knee RT 2V IMPRESSION: 1. Mild degenerative change of the lateral patellofemoral joint. 2. No significant interval change.
[2023-09-11 10:44] LABS: MANUAL DIFF FLAG NO
[2023-09-11 11:16] LABS: Basophils Absolute Auto 0.1 X10*3/uL (0.0-0.2); Basophils Percent Auto 0.7 % (0-2); Eosinophils Absolute Auto 0.1 X10*3/uL (0.0-0.4); Eosinophils Percent Auto 1.7 % (0-4); Hematocrit 43.7 % (37.0-47.0); Imm Gran Abs Auto 0.02 X10*3/uL (0.00-0.03); Imm Gran Pct Auto 0.2 % (0.0-0.4); Lymphocytes Absolute Auto 2.3 X10*3/uL (1.2-4.9); Lymphocytes Percent Auto 28.7 % (20-40); Mean Corpuscular Volume 90.7 fL (80.0-98.0); Mean Platelet Volume 10.1 fL (9.4-12.3); Monocytes Absolute Auto 0.6 X10*3/uL (0.1-1.2); Monocytes Percent Auto 6.8 % (2-11); Neutrophils Percent Auto 61.9 % (45-73); Platelet Count 363 X10*3/uL (160-400); Red Blood Count 4.82 X10*6/uL (4.20-5.50); Red Cell Distribution Width 12.5 % (11.0-16.0); White Blood Count 8.1 X10*3/uL (4.8-10.8)
[2023-09-11 11:30] LABS: Estimated Average Glucose 108 mg/dL; Hemoglobin A1c % 5.4 % (<6.0)
[2023-09-11 11:54] LABS: Alanine Aminotransferase 14 U/L (0-31); Alkaline Phosphatase 74 U/L (39-117); Anion Gap 10 (12-20); Aspartate Amino Transferase 21 U/L (5-31); Bilirubin Total 0.5 mg/dL (0.0-1.0); Blood Urea Nitrogen 10 mg/dL (9-16); Calcium 9.4 mg/dL (8.4-10.2); Carbon Dioxide 30 mmol/L (22-29); Chloride 106 mmol/L (96-108); Cholesterol 138 mg/dL (<200); Estimated Glomerular Filt Rate > 60; Glucose Random 89 mg/dL (60-115); HDL Cholesterol 58 mg/dL (>40); LDL Cholesterol Calculated 66 mg/dL (<100); Potassium 4.1 mmol/L (3.3-5.1); Sodium 142 mmol/L (135-145); Total Protein 6.9 g/dL (6.5-8.0); Triglycerides 74 mg/dL (<150)
[2023-09-11 12:06] LABS: Folate 10.5 ng/mL (> or = 4.0); Vitamin B12 698 pg/mL (200-900)
[2023-09-11 12:30] LABS: Free T4 (Free Thyroxine) 1.05 ng/dL (0.71-1.85); Thyroid Stimulating Hormone 1.74 uIU/mL (0.32-4.0); Vitamin D 25-OH Total 39.2 ng/mL (>30)
[2023-09-11 13:48] LABS: Appearance Urine Clear; Color Urine Dark Yellow; Glucose Urine UA Negative (Negative); Leukocyte Esterase Urine Trace (Negative); Nitrite Urine Negative (Negative); PH 5.5 (5.0-9.0); Specific Gravity - Urine 1.025 (1.005-1.025); UMIC TRIGGER UACC YES; Urine Blood Negative (Negative); Urine Ketones Trace mg/dL (Negative); Urine Protein Trace mg/dL (Neg-Trace)
[2023-09-11 13:51] LABS: Bacteria Urine None Seen (None Seen); Hyaline Casts Urine 0-2 /LPF (0-2); RBC Urine 0-2 /HPF (0-2); UACC Culture Trigger YES
[2023-09-11 14:38] LABS: Creatinine Urine 302.92 mg/dL; Microalbum/Creatinine Ratio Ur 4.9 ug/mg cr (<30)
== END 2023-09-11 10:33 | disposition home or self-care (01) ==
LOC: HO.MAMMO 10:32
PROVIDERS: PCP Internal Medicine; Visit Provider Internal Medicine
DX: Z12.31 Encounter for screening mammogram for malignant neoplasm of breast (principal); E78.00 Pure hypercholesterolemia, unspecified; M25.561 Pain in right knee; M25.512 Pain in left shoulder; E11.65 Type 2 diabetes mellitus with hyperglycemia; R39.9 Unspecified symptoms and signs involving the genitourinary system
CPT/HCPCS: 36415; 73030; 73560; 77063; 77067; 80053; 80061; 81001; 82043; 82306; 82570; 82607; 82746; 83036; 84439; 84443; 85025; 87086; 87088; 87186

== ENCOUNTER → 2023-09-11 12:00 | Outpatient (BNV) | payer OTHER, SELFPAY | PROVIDERS: PCP Internal Medicine; Visit Provider Radiology Diagnostic Radiology | DX: Z12.31 Encounter for screening mammogram for malignant neoplasm of breast (principal) | CPT/HCPCS: 77063; 77067 ==

== ENCOUNTER 2023-09-17 14:21 | Outpatient (AMB) | payer OTHER, SELFPAY ==
[2023-09-17 14:23] VITALS: BP 126/80; PULSE 76; O2SAT 97; BMI 38.0
--- NOTE | 2023-09-17 14:23 | A.OFFPC_ITS ---
Vital Signs 09/17/23 14:23 Height 5 ft 2 in Weight 208 lb BMI 38.0 BP 126/80 Blood Pressure Location Lt brachial Position Sitting Pulse 76 Pulse Source Pulse Oximeter Pulse Oximetry (%) 97 Oxygen Delivery Method Room Air Intake Visit Reasons: DM Intake Note: Patient is here to follow up on DM Belt Measurer Required: No Allergies metformin Adverse Reaction (Intermediate, Verified 09/17/23 14:24) nausea simvastatin Adverse Reaction (Intermediate, Verified 09/17/23 14:24) tiredness Tobacco use date assessed: 09/17/23 Dental Screening Dental Screen Date: 09/10/23 HPI DM 2 HPI Details 52-year-old obese female with GERD, hype rcholesterolemia hepatic steatosis bilateral osteoarthritis of the knee patient has had a history of laparoscopic sleeve gastrectomy, diabetes mellitus. Patient was last seen in August through Telehealth because of shoulder and right knee pain. Patient's mammogram is due [facility] Medical History (Updated 09/17/23 @ 15:15 by Yael Hoskins MD) Viral upper respiratory illness UTI (urinary tract infection) Obesity (BMI 30-39.9) Viral illness BMI 33.0-33.9,adult Esophagitis Liver fibrosis Steatosis, liver ATUL (obstructive sleep apnea) COVID-19 vaccine administered Arthritis History of postoperative nausea Diabetes Allergic rhinitis Morbid obesity Impaired glucose tolerance Asthma Osteoarthritis of right knee Hypercholesterolemia Obesity 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 Right carpal tunnel syndrome Vitamin D deficiency GERD (gastroesophageal reflux disease) Sinus infection Seasonal allergies Menopausal vaginal dryness Post-menopausal bleeding Surgical History History of sleeve gastrectomy History of right salpingo-oophorectomy Hx of laparoscopic gastric banding History of esophagogastroduodenoscopy (EGD) History of cholecystectomy Hx of tubal ligation Hx of section Family History (Updated 09/10/23 @ 16:03 by Jess Espinal CMA) Mother Diabetes HTN (hypertension) High cholesterol Father Heart disease Social History Housing: Apartment Are you a primary rn long term care to a significant other at home: No Do you presently have visiting nurse or other home services: No Alcohol intake: former Patient Tobacco Use Status: Former Tobacco user Tobacco use type: Cigarette Years Smoked: 25 e-Cigarette/Vaping Use: Never Used Second Hand Smoke Exposure: No service: No Current occupational status: employed Current occupational exposures/hazards: No Sexual orientation: Straight/Heterosexual Gender identity: Female Cognitive needs: No Hearing needs: No Vision needs: Yes Female Reproductive History Menstrual Age of Menarche: 11 Questionnaire Thrive Questionnaire Date Thrive assessed: 09/10/23 AUDIT C Alcohol Use Questionnaire (AUDIT-C) 1. How often do you have a drink containing alcohol?: Never 3. How often do you have six or more drinks on one occasion?: Never Total Score: 0 AMBER-7 AMB Questionnaire AMBER-7 Date AMBER - 7 assessed: 09/10/23 Source: Developed by Drs. Ayan Whittaker, Felicitas Dhillon, Sina Andujar and colleagues, with an educational suresh from [employer]. Physical exam (Primary Care) Vital Signs: Last Vital Signs Pulse 76 09/17/23 14:23 BP 126/80 09/17/23 14:23 Pulse Ox 97 09/17/23 14:23 Oxygen Delivery Method Room Air 09/17/23 14:23 BMI result Body Mass Index 38.0 Tobacco/Smoking Status: Tobacco use Status Tobacco use date assessed 09/17/23 09/17/23 14:24 Patient Tobacco Use Status Former Tobacco user 09/17/23 14:24 Tobacco use type Cigarette 09/17/23 14:24 e-Cigarette/Vaping Use Never Used 09/17/23 14:24 Thrive Assessment: Date of Thrive Assessment Date Thrive assessed 09/10/23 09/17/23 14:24 Const General: alert; No acute distress Eyes Conjunctivae: conjunctivae normal Resp Auscultation: clear to auscultation bilaterally Cardio Rate: regular rate Rhythm: regular rhythm GI Inspection: Yes normal to inspection Extrem General: Yes normal to inspection and No edema Assessment and Plan Assessment & Plan (1) Left shoulder pain: Code(s): M25.512 - Pain in left shoulder Plan: X-ray is pending (2) Right knee pain: Code(s): M25.561 - Pain in right knee Plan: X-rays pending (3) Obesity: Code(s): E66.9 - Obesity, unspecified Qualifiers: Obesity type: due to excess calories Obesity classification: adult class 3 (BMI >= 40) Serious obesity comorbidity presence: without serious comorbidity Body mass index: BMI 45.0-49.9 Qualified Code(s): E66.01 - Morbid (severe) obesity due to excess calories; Z68.42 - Body mass index [BMI] 45.0- 49.9, adult Plan: Diet and exercise (4) Type 2 diabetes mellitus with hyperglycemia: Comment: Dr. Echeverria Code(s): E11.65 - Type 2 diabetes mellitus with hyperglycemia Qualifiers: Diabetes mellitus half-way insulin use: without half-way use Qualified Code(s): E11.65 - Type 2 diabetes mellitus with hyperglycemia Plan: Decrease the amount of carbohydrate intake, pasta, bread, rice and potatoes are all sugar and that is aside from all the sweet stuff, remember that fruits are good but they are Sweet also. Presently on dulaglutide 3 mg once a week noted weight loss (5) S/P laparoscopic sleeve gastrectomy: Code(s): Z98.84 - Bariatric surgery status Plan: Continue with follow-up with bariatric surgeon (6) Hypercholesterolemia: Code(s): E78.00 - Pure hypercholesterolemia, unspecified Plan: Avoid fried foods, chicken skin, eggs, butter margarine, pastries and meat. Be it pork or beef they have a lot of cholesterol presently on atorvastatin 20 mg once a day blood work August 2023 at goal (7) Steatosis, liver: Code(s): K76.0 - Fatty (change of) liver, not elsewhere classified Plan: Low-fat diet (8) GERD (gastroesophageal reflux disease): Comment: uses omeprazole prn Code(s): K21.9 - Gastro-esophageal reflux disease without esophagitis Qualifiers: Esophagitis presence: without esophagitis Qualified Code(s): K21.9 - Gastro-esophageal reflux disease without esophagitis Plan: Avoid the foods that causes that usually spicy foods, tomato products, juices, coffee, soda and foods that your sensitive to. After eating do not lie down, allow 3-4 hours before in lie down. And keep the head of bed above 30 degrees to avoid the acid from going up. (9) Myalgia: Code(s): M79.10 - Myalgia, unspecified site Orders: Orders Erythrocyte Sedimentation Rate Today M79.10 - Myalgia, unspecified site C Reactive Protein Today M79.10 - Myalgia, unspecified site Creatine Kinase Total Today M79.10 - Myalgia, unspecified site Coding Level of Care Code Est Pt Level 4 (20249) Diagnoses Left shoulder pain M25.512 Right knee pain M25.561 Class 3 severe obesity due to excess calories without serious comorbidity with body mass index (BMI) of 45.0 to 49.9 in adult E66.01; Z68.42 Obesity type: due to excess calories Obesity classification: adult class 3 (BMI >= 40) Serious obesity comorbidity presence: without serious comorbidity Body mass index: BMI 45.0-49.9 Type 2 diabetes mellitus with hyperglycemia, without long-term current use of insulin E11.65 Diabetes mellitus education reviewer insulin use: without half-way use S/P laparoscopic sleeve gastrectomy Z98.84 Hypercholesterolemia E78.00 Steatosis, liver K76.0 Gastroesophageal reflux disease without esophagitis K21.9 Esophagitis presence: without esophagitis Myalgia M79.10
== END 2023-09-17 15:21 | disposition home or self-care (01) ==
PROVIDERS: PCP Internal Medicine; Visit Provider Internal Medicine
DX: E11.65 Type 2 diabetes mellitus with hyperglycemia (principal); M17.0 Bilateral primary osteoarthritis of knee; E66.01 Morbid (severe) obesity due to excess calories; Z68.42 Body mass index [BMI] 45.0-49.9, adult; Z98.84 Bariatric surgery status; E78.00 Pure hypercholesterolemia, unspecified; K76.0 Fatty (change of) liver, not elsewhere classified; K21.9 Gastro-esophageal reflux disease without esophagitis; M79.10 Myalgia, unspecified site
CPT/HCPCS: 99214

== ENCOUNTER 2024-01-23 14:41 | Outpatient (REF) | payer OTHER, SELFPAY ==
[2024-01-23 17:45] LABS: Appearance Urine Turbid; Color Urine Yellow; Glucose Urine UA Negative (Negative); Leukocyte Esterase Urine Trace (Negative); Nitrite Urine Negative (Negative); PH 5.5 (5.0-9.0); Specific Gravity - Urine >= 1.030 (1.005-1.025); UMIC TRIGGER UACC YES; Urine Blood Negative (Negative); Urine Ketones Negative (Negative); Urine Protein Negative (Neg-Trace)
[2024-01-23 17:51] LABS: Bacteria Urine 2+ (None Seen); Hyaline Casts Urine 0-2 /LPF (0-2); RBC Urine 0-2 /HPF (0-2); UACC Culture Trigger YES; WBC Urine 21-50 /HPF (0-5)
[2024-01-23 18:23] LABS: Erythrocyte Sedimentation Rate 9 MM/HR (0-20)
== END 2024-01-23 14:42 | disposition home or self-care (01) ==
LOC: HO.WFDLDS 14:41
PROVIDERS: Visit Provider Internal Medicine
DX: E11.65 Type 2 diabetes mellitus with hyperglycemia (principal); M79.10 Myalgia, unspecified site; R39.9 Unspecified symptoms and signs involving the genitourinary system
CPT/HCPCS: 36415; 81001; 82550; 82570; 85652; 86140; 87086; 87088; 87186

== ENCOUNTER 2024-01-29 15:33 | Outpatient (AMB) | payer OTHER, SELFPAY ==
[2024-01-29 15:36] VITALS: BP 110/68; PULSE 74; O2SAT 99; BMI 36.2
--- NOTE | 2024-01-29 15:36 | A.OFFPC_ITS ---
Vital Signs 01/29/24 15:36 Height 5 ft 2 in Weight 198 lb BMI 36.2 BP 110/68 Blood Pressure Location Lt brachial Position Sitting Pulse 74 Pulse Source Pulse Oximeter Pulse Oximetry (%) 99 Oxygen Delivery Method Room Air Intake Visit Reasons: IGT , myalgia Legal Consultant Required: No Allergies metformin Adverse Reaction (Intermediate, Verified 01/29/24 15:37) nausea simvastatin Adverse Reaction (Intermediate, Verified 01/29/24 15:37) tiredness Tobacco use date assessed: 09/17/23 Dental Screening Dental Screen Date: 09/10/23 HPI IGT , myalgia HPI Details [age] year old obese female()noted 10 lb weight loss with diabetes mellitus patient has history of laparoscopic sleeve gastrectomy hypercholesterolemia GERD coming in for follow-up. Last seen in August having left shoulder pain right knee pain x-ray requested. Patient's mammogram is up-to-date review of the notes. PAtient states feeling sob on exertion and concern on this [facility] Medical History (Updated 01/29/24 @ 16:16 by Yael Hoskins MD) Viral upper respiratory illness UTI (urinary tract infection) Obesity (BMI 30-39.9) Viral illness BMI 33.0-33.9,adult Esophagitis Liver fibrosis Steatosis, liver ATUL (obstructive sleep apnea) COVID-19 vaccine administered Arthritis History of postoperative nausea Diabetes Allergic rhinitis Morbid obesity Impaired glucose tolerance Asthma Osteoarthritis of right knee Hypercholesterolemia Obesity 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 Right carpal tunnel syndrome Vitamin D deficiency GERD (gastroesophageal reflux disease) Sinus infection Seasonal allergies Menopausal vaginal dryness Post-menopausal bleeding Surgical History (Updated 01/29/24 @ 16:08 by Yael Hoskins MD) History of sleeve gastrectomy History of right salpingo-oophorectomy Hx of laparoscopic gastric banding History of esophagogastroduodenoscopy (EGD) History of cholecystectomy Hx of tubal ligation Hx of section Family History (Updated 09/10/23 @ 16:03 by Jess Espinal CMA) Mother Diabetes HTN (hypertension) High cholesterol Father Heart disease Social History Housing: Apartment Are you a primary child care center assistant director to a significant other at home: No Do you presently have visiting nurse or other home services: No Alcohol intake: former Patient Tobacco Use Status: Former Tobacco user Tobacco use type: Cigarette Years Smoked: 25 e-Cigarette/Vaping Use: Never Used Second Hand Smoke Exposure: No service: No Current occupational status: employed Current occupational exposures/hazards: No Sexual orientation: Straight/Heterosexual Gender identity: Female Cognitive needs: No Hearing needs: No Vision needs: Yes Female Reproductive History Menstrual Age of Menarche: 11 Questionnaire Thrive Questionnaire Date Thrive assessed: 09/10/23 AUDIT C Alcohol Use Questionnaire (AUDIT-C) 1. How often do you have a drink containing alcohol?: Never 3. How often do you have six or more drinks on one occasion?: Never Total Score: 0 AMBER-7 AMB Questionnaire AMBER-7 Date AMBER - 7 assessed: 09/10/23 Source: Developed by Drs. Ayan Whittaker, Felicitas Dhillon, Sina Andujar and colleagues, with an educational suresh from [employer]. Physical exam (Primary Care) Vital Signs: Last Vital Signs Pulse 74 01/29/24 15:36 BP 110/68 01/29/24 15:36 Pulse Ox 99 01/29/24 15:36 Oxygen Delivery Method Room Air 01/29/24 15:36 BMI result Body Mass Index 36.2 Tobacco/Smoking Status: Tobacco use Status Tobacco use date assessed 09/17/23 01/29/24 15:37 Patient Tobacco Use Status Former Tobacco user 01/29/24 15:37 Tobacco use type Cigarette 01/29/24 15:37 e-Cigarette/Vaping Use Never Used 01/29/24 15:37 Thrive Assessment: Date of Thrive Assessment Date Thrive assessed 09/10/23 01/29/24 15:37 Const General: alert; No acute distress Eyes Conjunctivae: conjunctivae normal Resp Auscultation: clear to auscultation bilaterally Cardio Rate: regular rate Rhythm: regular rhythm GI Inspection: Yes normal to inspection Extrem General: Yes normal to inspection and No edema Results AMB Urinalysis, Automated UA Leukoctes 2 Juaquin/uL Last Edit by RUBEN Alfaro on 01/29/24 16:34 UA Nitrite Negative Last Edit by RUBEN Alfaro on 01/29/24 16:34 UA Urobilinogen 2 mg/dL Last Edit by RUBEN Alfaro on 01/29/24 16: 34 UA Protein 1 mg/dL Last Edit by Stef Ortega, A on 01/29/24 16:34 UA pH 5.5 Last Edit by Stef Ortega, A on 01/29/24 16:34 UA Blood 0 Devin/uL Last Edit by Stef Ortega, RMA on 01/29/24 16:34 UA Specific [place] 1.030 Last Edit by Stef Ortega, A on 01/29/24 16:34 UA Ketone Positive Last Edit by Setf Ortega, A on 01/29/24 16:34 UA Bilirubin 1 mg/dL Last Edit by Stef Ortega, RMA on 01/29/24 16:34 UA Glucose 0 mg/dL Last Edit by Stef Ortega, [facility] on 01/29/24 16:34 Assessment and Plan Assessment & Plan (1) Type 2 diabetes mellitus with hyperglycemia: Comment: Dr. Echeverria Code(s): E11.65 - Type 2 diabetes mellitus with hyperglycemia Qualifiers: Diabetes mellitus intermediate school teacher insulin use: without intermediate school teacher use Qualified Code(s): E11.65 - Type 2 diabetes mellitus with hyperglycemia Plan: Decrease the amount of carbohydrate intake, pasta, bread, rice and potatoes are all sugar and that is aside from all the sweet stuff, remember that fruits are good but they are Sweet also. Presently on Trulicity 3 mg once a week (2) S/P laparoscopic sleeve gastrectomy: Comment: 2020 Code(s): Z98.84 - Bariatric surgery status Plan: Continue to follow-up with bariatric surgeon. (3) Hypercholesterolemia: Code(s): E78.00 - Pure hypercholesterolemia, unspecified Plan: Avoid fried foods, chicken skin, eggs, butter margarine, pastries and meat. Be it pork or beef they have a lot of cholesterol LDL goal of less than 100 and triglyceride of less than 150 on atorvastatin 20 mg once a day (4) Obesity (BMI 30-39.9): Code(s): E66.9 - Obesity, unspecified Plan: Diet and exercise (5) Osteoarthritis, shoulder: Code(s): M19.019 - Primary osteoarthritis, unspecified shoulder Plan: Keep (6) SOB (shortness of breath) on exertion: Code(s): R06.02 - Shortness of breath (7) Dysuria: Code(s): R30.0 - Dysuria Orders: Orders XR chest 2V Today R06.02 - Shortness of breath AMB Urinalysis Automated Today R30.0 - Dysuria, Z13.9 - Encounter for screening, unspecified CA stress test Today R06.02 - Shortness of breath Medications: Refilled atorvastatin 20 mg PO DAILY 90 tabs 1RF E78.00 - Pure hypercholesterolemia, unspecified dulaglutide 3 mg (0.5 mL) subcut QWEEK 2.5 mL 12RF 30 days E11.65 - Type 2 diabetes mellitus with hyperglycemia Coding Level of Care Code Est Pt Level 4 (36281) Diagnoses Type 2 diabetes mellitus with hyperglycemia, without long-term current use of insulin E11.65 Diabetes mellitus retirement insulin use: without retirement use S/P laparoscopic sleeve gastrectomy Z98.84 Hypercholesterolemia E78.00 Obesity (BMI 30-39.9) E66.9 Osteoarthritis, shoulder M19.019 SOB (shortness of breath) on exertion R06.02 Dysuria R30.0
== END 2024-01-29 16:23 | disposition home or self-care (01) ==
PROVIDERS: PCP Internal Medicine; Visit Provider Internal Medicine
DX: E11.65 Type 2 diabetes mellitus with hyperglycemia (principal); E78.00 Pure hypercholesterolemia, unspecified; M19.019 Primary osteoarthritis, unspecified shoulder; R30.0 Dysuria; R06.02 Shortness of breath
CPT/HCPCS: 81003; 99214

== ENCOUNTER → 2024-02-12 08:34 | Outpatient (REF) | payer OTHER, SELFPAY ==
--- NOTE | 2024-02-12 08:37 | CA_ITS ---
Acquisition Time: 2024-02-12 08:39:49 Total Exercise Time: 00:06:40 Test Indications: Dyspnea Medications: SEE EMAR Protocol: OMAR Max HR: 150 BPM 90% of Pred: 166 BPM Max BP: 122/066 mmHG Max Work Load: 8.0 METS Exercise stress test exercise 6 min 40 sec of Omar protocol 90% MPHR, with mild SOB, no chest discomfort, without arrthymias, reports burning in left arm, with resting hypotension, with normotensive response to exercise, without EKG changes. Burning in left arm resolved with rest. Test reviewed with Dr. Diallo, Intial BP was systolioc 80s. Rechecked by me after rest for 20 mimutes with improvement. Asymptomatic. Referred By: Yael Hoskins Overread By: Zoila Beckman
== END ==
LOC: HO.CARD 08:34
PROVIDERS: PCP Internal Medicine; Visit Provider Internal Medicine
DX: R06.02 Shortness of breath (principal)
CPT/HCPCS: 93017

== ENCOUNTER → 2024-02-12 08:37 | Outpatient (BNV) | payer OTHER, SELFPAY | PROVIDERS: PCP Internal Medicine; Visit Provider Nurse Practitioner | DX: R06.02 Shortness of breath (principal); I95.9 Hypotension, unspecified | CPT/HCPCS: 93016; 93018 ==

== ENCOUNTER 2024-03-18 11:33 | Outpatient (REF) | payer OTHER, SELFPAY ==
[2024-03-18 14:59] LABS: Appearance Urine Clear; Color Urine Dark Yellow; Glucose Urine UA Negative (Negative); Leukocyte Esterase Urine Negative (Negative); Nitrite Urine Negative (Negative); Urine Blood Negative (Negative); Urine Ketones Trace mg/dL (Negative); Urine Protein Negative (Neg-Trace)
== END 2024-03-18 11:34 | disposition home or self-care (01) ==
LOC: HO.WFDLDS 11:33
PROVIDERS: Visit Provider Internal Medicine
DX: R39.9 Unspecified symptoms and signs involving the genitourinary system (principal)
CPT/HCPCS: 81003

== ENCOUNTER 2024-05-19 15:27 | Outpatient (AMB) | payer OTHER, SELFPAY ==
--- NOTE | 2024-05-19 15:40 | A.OFFPC_ITS ---
Vital Signs 05/19/24 15:41 Height 5 ft 2 in Weight 190 lb 8 oz BMI 34.8 BP 110/72 Blood Pressure Location Lt brachial Position Sitting Pulse 74 Pulse Source Pulse Oximeter Pulse Oximetry (%) 97 Oxygen Delivery Method Room Air Intake Visit Reasons: 3mth f/u ADDRES Allergies metformin Adverse Reaction (Intermediate, Verified 05/19/24 15:46) nausea simvastatin Adverse Reaction (Intermediate, Verified 05/19/24 15:46) tiredness Medication List - Last Reconciled 05/19/24 by Yael Hoskins MD atorvastatin 20 mg PO DAILY biotin mg PO blood sugar diagnostic (FreeStyle Lite Strips) As directed check the blood sugars once a day blood-glucose meter (FreeStyle [place]ing Lite kit) As directed celecoxib 200 mg PO DAILY dulaglutide 3 mg (0.5 mL) subcut QWEEK 30 days hydrocortisone 2.5% (Proctosol HC) 1 appl DE BID-QID PRN lancets (FreeStyle Lancets) As directed, check the BS QD multivitamin 1 tab PO DAILY omeprazole 20 mg PO DAILY Tobacco use date assessed: 05/19/24 Dental Screening Dental Screen Date: 05/19/24 Did you have a dental visit in the last 12 months?: Yes Did you have a dental problem in the last 6 months where you did not have access to dental care?: No Was dental information given to patient?: Patient has dentist HPI 3mth f/u ADDRES HPI Details The patient is a 53-year-old female presenting with follow-up for hypertension and hyperlipidemia management. During the conversation, it was noted that her blood pressure is well-controlled on current medications, and lipid levels are within target range with atorvastatin therapy. However, she reports ineffective pain control with celecoxib, specifically taken at night, suggesting a need for reassessment of pain management strategies. She experiences joint pain that impacts her ability to exercise regularly. Additionally, the patient reports menopausal symptoms such as dryness causing irritation, which has been attributed to decreased estrogen levels. Despite regular menstrual cycles previously, she has not experienced frequent urination as a symptom historically, but now reports increased frequency despite negative urine tests for infection. The conversation suggested possible dryness as a contributing factor rather than infection. The patient also discussed a history of ovarian pain which has required previous surgical intervention; however, residual discomfort remains. She is considering further evaluation with potential imaging to determine current status. Furthermore, the patient acknowledges a familial history of colon cancer, mandating preventive measures by stool testing as discussed. Cataracts were noted in past evaluations, but the patient has not experienced significant visual deterioration. [facility] Medical History Viral upper respiratory illness UTI (urinary tract infection) Obesity (BMI 30-39.9) Viral illness BMI 33.0-33.9,adult Esophagitis Liver fibrosis Steatosis, liver ATUL (obstructive sleep apnea) COVID-19 vaccine administered Arthritis History of postoperative nausea Diabetes Allergic rhinitis Morbid obesity Impaired glucose tolerance Asthma Osteoarthritis of right knee Hypercholesterolemia Obesity 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 Right carpal tunnel syndrome Vitamin D deficiency GERD (gastroesophageal reflux disease) Sinus infection Seasonal allergies Menopausal vaginal dryness Post-menopausal bleeding Surgical History History of sleeve gastrectomy History of right salpingo-oophorectomy Hx of laparoscopic gastric banding History of esophagogastroduodenoscopy (EGD) History of cholecystectomy Hx of tubal ligation Hx of section Family History Mother Diabetes HTN (hypertension) High cholesterol Father Heart disease Social History Housing: Apartment Are you a primary manager intensive care unit to a significant other at home: No Do you presently have visiting nurse or other home services: No Alcohol intake: former Patient Tobacco Use Status: Former Tobacco user Tobacco use type: Cigarette Years Smoked: 25 e-Cigarette/Vaping Use: Never Used Second Hand Smoke Exposure: No service: No Current occupational status: employed Current occupational exposures/hazards: No Sexual orientation: Straight/Heterosexual Gender identity: Female Cognitive needs: No Hearing needs: No Vision needs: Yes Female Reproductive History Menstrual Age of Menarche: 11 Questionnaire PHQ-9 Over the last 2 weeks, how often have you been bothered by any of the following problems? 1. Little interest or pleasure in doing things: not at all 2. Feeling down, depressed, or hopeless: not at all 3. Trouble falling or staying asleep, or sleeping too much: not at all 4. Feeling tired or having little energy: not at all 5. Poor appetite or overeating: not at all 6. Feeling bad about yourself - or that you are a failure or have let yourself or your family down: not at all 7. Trouble concentrating on things, such as reading the newspaper or watching television: not at all 8. Moving or speaking so slowly that other people could have noticed. Or the opposite - being so fidgety or restless that you have been moving around a lot more than usual: not at all 9. Thoughts that you would be better off or of hurting yourself in some way: not at all Total score: 0 Depression Screening Interpretation: Negative Depression Screening Done: Yes Source: Developed by Drs. Ayan Whittaker, Felicitas Dhillon, Sina Andujar and colleagues, with an educational suresh from [employer]. Thrive Questionnaire Date Thrive assessed: 05/19/24 I am a: Patient What is your living situation today?: I have a steady place to live Within the past 12 months, did the food you bought not last and you didn't have the money to get more?: Never true Within the past 12 months, did you worry whether your food would run out before you got money to buy more?: Never true Do you have trouble paying for medicines?: No Do you have trouble getting transportation to medical appointments?: No Do you have trouble paying your heating and electricity bill?: No Do you have trouble taking care of your child, family member or friend?: No Do you have trouble with day-to-day activities such as bathing, preparing meals, shopping, managing finances, etc.?: No Are you currently unemployed and looking for a job?: No Are you interested in more education?: No THRIVE Score: 0 AUDIT C Alcohol Use Questionnaire (AUDIT-C) 1. How often do you have a drink containing alcohol?: Never 3. How often do you have six or more drinks on one occasion?: Never Total Score: 0 AMBER-7 AMB Questionnaire AMBER-7 Date AMBER - 7 assessed: 05/19/24 Feeling nervous, anxious, or on edge: 0 = Not at all Not being able to stop or control worryin = Not at all Worrying too much about different things: 0 = Not at all Trouble relaxin = Not at all Being so restless that it is hard to sit still: 0 = Not at all Becoming easily annoyed or irritable: 0 = Not at all Feeling afraid as if something awful might happen: 0 = Not at all Total AMBER-7 score (0-4 normal; 5-9 mild; 10-14 moderate; 15-21 severe): 0 Source: Developed by Drs. Ayan Whittaker, Felicitas Dhillon, Sina Andujar and colleagues, with an educational suresh from [employer]. Physical exam (Primary Care) Vital Signs: Last Vital Signs Pulse 74 05/19/24 15:41 BP 110/72 05/19/24 15:41 Pulse Ox 97 05/19/24 15:41 Oxygen Delivery Method Room Air 05/19/24 15:41 BMI result Body Mass Index 34.8 Tobacco/Smoking Status: Tobacco use Status Tobacco use date assessed 05/19/24 05/19/24 15:48 Patient Tobacco Use Status Former Tobacco user 05/19/24 15:41 Tobacco use type Cigarette 05/19/24 15:41 e-Cigarette/Vaping Use Never Used 05/19/24 15:41 PHQ-9: PHQ-9 Score PHQ-9: Total score 0 05/19/24 15:48 Depression Screening Interpretation: Negative Thrive Assessment: Date of Thrive Assessment Date Thrive assessed 05/19/24 05/19/24 15:48 Const General: alert; No acute distress Eyes Conjunctivae: conjunctivae normal Resp Auscultation: clear to auscultation bilaterally Cardio Rate: regular rate Rhythm: regular rhythm GI Inspection: Yes normal to inspection Extrem General: Yes normal to inspection and No edema Results AMB Hemoglobin A1c AMB Hemoglobin A1c 5.4 % Last Edit by Ita Estrada CMA on 05/19/24 15:57 Results Reviewed Results Reviewed: Laboratory Last Values Hgb A1c (Clinic) 5.4 % (4.0-6.0) 05/19/24 15:48 Coding Level of Care Code Est Pt Level 4 (49595) Complex EM visit Add On G2211 Diagnoses Type 2 diabetes mellitus with hyperglycemia, without long-term current use of insulin E11.65 Diabetes mellitus group home insulin use: without group home use S/P laparoscopic sleeve gastrectomy Z98.84 Obesity (BMI 30-39.9) E66.9 Hypercholesterolemia E78.00 Gastroesophageal reflux disease without esophagitis K21.9 Esophagitis presence: without esophagitis Colon cancer screening Z12.11 Assessment & Plan Assessment & Plan (1) Type 2 diabetes mellitus with hyperglycemia: Comment: Dr. Echeverria Code(s): E11.65 - Type 2 diabetes mellitus with hyperglycemia Category: Medical Qualifiers: Diabetes mellitus long filler cigar roller machine insulin use: without long filler cigar roller machine use Qualified Code(s): E11.65 - Type 2 diabetes mellitus with hyperglycemia (2) S/P laparoscopic sleeve gastrectomy: Comment: 2020 Code(s): Z98.84 - Bariatric surgery status Category: Surgical (3) Obesity (BMI 30-39.9): Code(s): E66.9 - Obesity, unspecified Category: Medical (4) Hypercholesterolemia: Code(s): E78.00 - Pure hypercholesterolemia, unspecified Category: Medical (5) GERD (gastroesophageal reflux disease): Comment: uses omeprazole prn Code(s): K21.9 - Gastro-esophageal reflux disease without esophagitis Category: Medical Qualifiers: Esophagitis presence: without esophagitis Qualified Code(s): K21.9 - Gastro-esophageal reflux disease without esophagitis (6) Colon cancer screening: Comment: Index screening colonoscopy with anesthesia consult history asthma and ATUL Code(s): Z12.11 - Encounter for screening for malignant neoplasm of colon Category: Medical Plan - Continue atorvastatin for hyperlipidemia; lipid levels are within the therapeutic range. - Maintain current antihypertensive regimen given well-controlled blood pressure. - Reevaluate pain management; consider alternative medications for joint pain as celebrex is ineffective. - Consider topical estrogen therapy for menopausal symptoms causing dryness, pending gynecological evaluation. - Further investigate causes for frequent urination; ensure hydration and consider urological assessment if symptoms persist. - Follow up with paint grinder regarding ovarian pain, including potential imaging studies. - Encourage participation in low-impact physical activity to aid joint mobility and weight management. - Arrange for stool testing as part of colon cancer screening due to family history. - Discuss potential cataract evaluation and management with debug technician. - Discuss pneumonia vaccination considering diabetes as an adjunct factor in preventing respiratory issues. - Monitor overall health status with routine laboratory work in three months, including fasting blood draw and urine analysis. Orders: Orders AMB Hemoglobin A1c Today Z13.9 - Encounter for screening, unspecified Complete Blood Count Auto Diff 3 Months E11.65 - Type 2 diabetes mellitus with hyperglycemia Comprehensive Met. Panel 3 Months E1165 - Type 2 diabetes mellitus with hyperg lycemia Microalbumin, Random (w Creat) 3 Months E11. - Type 2 diabetes mellitus with hyperglycemia Hemoglobin A1c 3 Months E11. - Type 2 diabetes mellitus with hyperglycemia Vitamin D 25-OH Total 3 Months E11. - Type 2 diabetes mellitus with hyperglycemia Lipid Panel 3 Months E11. - Type 2 diabetes mellitus with hyperglycemia, E78.00 - Pure hypercholesterolemia, unspecified Creatinine Urine 3 Months . - Type 2 diabetes mellitus with hyperglycemia UA CC w/rflx Micro + Cult 3 Months . - Type 2 diabetes mellitus with hyperglycemia, R30.0 - Dysuria Thyroid Stimulating Hormone 3 Months . - Type 2 diabetes mellitus with hyperglycemia Free T4 (Free Thyroxine) 3 Months E11. - Type 2 diabetes mellitus with hyperglycemia Vitamin B12 and Folate 3 Months E11. - Type 2 diabetes mellitus with hyperglycemia Referrals Cologuard Test Z12.11 - Encounter for screening for malignant neoplasm of colon, Z53.20 - Procedure and treatment not carried out because of patient's decision for unspecified reasons
[2024-05-19 15:41] VITALS: BP 110/72; PULSE 74; O2SAT 97; BMI 34.8
== END 2024-05-19 16:18 | disposition home or self-care (01) ==
PROVIDERS: PCP Internal Medicine; Visit Provider Internal Medicine
DX: E11.65 Type 2 diabetes mellitus with hyperglycemia (principal); Z98.84 Bariatric surgery status; E66.9 Obesity, unspecified; Z68.34 Body mass index [BMI] 34.0-34.9, adult; E78.00 Pure hypercholesterolemia, unspecified; K21.9 Gastro-esophageal reflux disease without esophagitis; Z12.11 Encounter for screening for malignant neoplasm of colon

== ENCOUNTER → 2024-05-19 15:27 | Outpatient (BNVA) | payer OTHER, SELFPAY | PROVIDERS: PCP Internal Medicine; Visit Provider Internal Medicine | DX: E11.65 Type 2 diabetes mellitus with hyperglycemia (principal); E66.9 Obesity, unspecified; E78.00 Pure hypercholesterolemia, unspecified; K21.9 Gastro-esophageal reflux disease without esophagitis; Z98.84 Bariatric surgery status | CPT/HCPCS: 83036; 96127; 99212 ==

== ENCOUNTER 2024-08-12 09:52 | Outpatient (REF) | payer OTHER, SELFPAY ==
[2024-08-12 11:17] LABS: MANUAL DIFF FLAG NO
[2024-08-12 11:26] LABS: Appearance Urine Clear; Color Urine Yellow; Glucose Urine UA Negative (Negative); Leukocyte Esterase Urine Negative (Negative); Nitrite Urine Negative (Negative); PH 5.5 (5.0-9.0); Specific Gravity - Urine 1.015 (1.005-1.025); Urine Blood Negative (Negative); Urine Ketones Negative (Negative); Urine Protein Negative (Neg-Trace)
[2024-08-12 11:29] LABS: Basophils Absolute Auto 0.1 X10*3/uL (0.0-0.2); Basophils Percent Auto 0.7 % (0-2); Eosinophils Absolute Auto 0.2 X10*3/uL (0.0-0.4); Eosinophils Percent Auto 2.1 % (0-4); Hematocrit 43.2 % (37.0-47.0); Hemoglobin 14.3 g/dl (12.0-16.0); Imm Gran Abs Auto 0.02 X10*3/uL (0.00-0.03); Imm Gran Pct Auto 0.3 % (0.0-0.4); Lymphocytes Absolute Auto 2.1 X10*3/uL (1.2-4.9); Lymphocytes Percent Auto 27.7 % (20-40); Mean Corpuscular HGB Conc 33.1 g/dl (31.0-35.0); Mean Corpuscular Hemoglobin 29.8 pg (27.0-33.0); Mean Platelet Volume 10.1 fL (9.4-12.3); Monocytes Absolute Auto 0.5 X10*3/uL (0.1-1.2); Neutrophils Absolute Auto 4.7 x10*3/uL (2.0-8.3); Neutrophils Percent Auto 62.2 % (45-73); Platelet Count 353 X10*3/uL (160-400); Red Cell Distribution Width 12.6 % (11.0-16.0); White Blood Count 7.5 X10*3/uL (4.8-10.8)
[2024-08-12 11:45] LABS: Estimated Average Glucose 108 mg/dL; Hemoglobin A1C 132.9897 umol/L; Hemoglobin A1c % 5.4 % (<6.0)
[2024-08-12 12:25] LABS: Alanine Aminotransferase 17 U/L (0-31); Albumin Level 3.9 g/dL (3.5-5.0); Alkaline Phosphatase 73 U/L (39-117); Anion Gap 9 (12-20); Aspartate Amino Transferase 26 U/L (5-31); Bilirubin Total 0.6 mg/dL (0.0-1.0); Blood Urea Nitrogen 15 mg/dL (9-16); Calcium 9.2 mg/dL (8.4-10.2); Carbon Dioxide 30 mmol/L (22-29); Chloride 108 mmol/L (96-108); Cholesterol 149 mg/dL (<200); Estimated Glomerular Filt Rate > 60; Folate 15.2 ng/mL (> or = 4.0); Free T4 (Free Thyroxine) 1.06 ng/dL (0.71-1.85); Glucose Random 88 mg/dL (60-115); HDL Cholesterol 57 mg/dL (>40); LDL Cholesterol Calculated 70 mg/dL (<100); Potassium 4.3 mmol/L (3.3-5.1); Sodium 143 mmol/L (135-145); Total Protein 6.5 g/dL (6.5-8.0); Triglycerides 110 mg/dL (<150); Vitamin B12 649 pg/mL (200-900); Vitamin D 25-OH Total 48.9 ng/mL (>30)
== END 2024-08-12 09:53 | disposition home or self-care (01) ==
LOC: HO.WFDLDS 09:52
PROVIDERS: Visit Provider Internal Medicine
DX: E11.65 Type 2 diabetes mellitus with hyperglycemia (principal); R30.0 Dysuria; E78.00 Pure hypercholesterolemia, unspecified
CPT/HCPCS: 36415; 80053; 80061; 81003; 82043; 82306; 82570; 82607; 82746; 83036; 84439; 84443; 85025

== ENCOUNTER 2024-08-18 13:53 | Outpatient (AMB) | payer OTHER, SELFPAY ==
[2024-08-18 14:00] VITALS: BP 128/74; PULSE 65; TEMP 36.3; O2SAT 99; BMI 33.9
--- NOTE | 2024-08-18 14:00 | A.OFFPC_ITS ---
Vital Signs 08/18/24 14:00 Height 5 ft 2 in Weight 185 lb 8 oz BMI 33.9 BP 128/74 Blood Pressure Location Lt brachial Position Sitting Pulse 65 Pulse Source Pulse Oximeter Temp 97.3 F Temp Source Temporal Artery Scan Pulse Oximetry (%) 99 Oxygen Delivery Method Room Air Intake Visit Reasons: 3 month f/u Allergies metformin Adverse Reaction (Intermediate, Verified 08/18/24 14:04) nausea simvastatin Adverse Reaction (Intermediate, Verified 08/18/24 14:04) tiredness Medication List - Last Reconciled 08/18/24 by Yael Hoskins MD atorvastatin 20 mg PO DAILY biotin mg PO blood sugar diagnostic (FreeStyle Lite Strips) As directed check the blood sugars once a day blood-glucose meter (FreeStyle [facility] Lite kit) As directed celecoxib 200 mg PO DAILY dulaglutide 4.5 mg (0.5 mL) subcut QWEEK 30 days hydrocortisone 2.5% (Proctosol HC) 1 appl AK BID-QID PRN lancets (FreeStyle Lancets) As directed, check the BS QD multivitamin 1 tab PO DAILY omeprazole 20 mg PO DAILY Tobacco use date assessed: 08/18/24 Dental Screening Dental Screen Date: 08/18/24 Did you have a dental visit in the last 12 months?: Yes Did you have a dental problem in the last 6 months where you did not have access to dental care?: No Was dental information given to patient?: Patient has dentist [facility] Medical History Viral upper respiratory illness UTI (urinary tract infection) Obesity (BMI 30-39.9) Viral illness BMI 33.0-33.9,adult Esophagitis Liver fibrosis Steatosis, liver ATUL (obstructive sleep apnea) COVID-19 vaccine administered Arthritis History of postoperative nausea Diabetes Allergic rhinitis Morbid obesity Impaired glucose tolerance Asthma Osteoarthritis of right knee Hypercholesterolemia Obesity 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 Right carpal tunnel syndrome Vitamin D deficiency GERD (gastroesophageal reflux disease) Sinus infection Seasonal allergies Menopausal vaginal dryness Post-menopausal bleeding Surgical History History of sleeve gastrectomy History of right salpingo-oophorectomy Hx of laparoscopic gastric banding History of esophagogastroduodenoscopy (EGD) History of cholecystectomy Hx of tubal ligation Hx of section Family History Mother Diabetes HTN (hypertension) High cholesterol Father Heart disease Social History Housing: Apartment Are you a primary care partner to a significant other at home: No Do you presently have visiting nurse or other home services: No Alcohol intake: former Patient Tobacco Use Status: Former Tobacco user Tobacco use type: Cigarette Years Smoked: 25 e-Cigarette/Vaping Use: Never Used Second Hand Smoke Exposure: No service: No Current occupational status: employed Current occupational exposures/hazards: No Sexual orientation: Straight/Heterosexual Gender identity: Female Cognitive needs: No Hearing needs: No Vision needs: Yes Female Reproductive History Menstrual Age of Menarche: 11 Questionnaire PHQ-9 Over the last 2 weeks, how often have you been bothered by any of the following problems? 1. Little interest or pleasure in doing things: not at all 2. Feeling down, depressed, or hopeless: not at all 3. Trouble falling or staying asleep, or sleeping too much: not at all 4. Feeling tired or having little energy: not at all 5. Poor appetite or overeating: not at all 6. Feeling bad about yourself - or that you are a failure or have let yourself or your family down: not at all 7. Trouble concentrating on things, such as reading the newspaper or watching television: not at all 8. Moving or speaking so slowly that other people could have noticed. Or the opposite - being so fidgety or restless that you have been moving around a lot more than usual: not at all 9. Thoughts that you would be better off or of hurting yourself in some way: not at all Total score: 0 Depression Screening Interpretation: Negative Depression Screening Done: Yes 60548 - PHQ-9 Billing: Yes Source: Developed by Drs. Ayan Whittaker, Felciitas Dhillon, Sina Andujar and colleagues, with an educational suresh from [employer]. Thrive Questionnaire Date Thrive assessed: 08/18/24 I am a: Patient What is your living situation today?: I have a steady place to live Within the past 12 months, did the food you bought not last and you didn't have the money to get more?: Never true Within the past 12 months, did you worry whether your food would run out before you got money to buy more?: Never true Do you have trouble paying for medicines?: No Do you have trouble getting transportation to medical appointments?: No Do you have trouble paying your heating and electricity bill?: No Do you have trouble taking care of your child, family member or friend?: No Do you have trouble with day-to-day activities such as bathing, preparing meals, shopping, managing finances, etc.?: No Are you currently unemployed and looking for a job?: No Are you interested in more education?: No THRIVE Score: 0 AUDIT C Alcohol Use Questionnaire (AUDIT-C) 1. How often do you have a drink containing alcohol?: Never 3. How often do you have six or more drinks on one occasion?: Never Total Score: 0 AMBER-7 AMB Questionnaire AMBER-7 Date AMBER - 7 assessed: 08/18/24 Feeling nervous, anxious, or on edge: 0 = Not at all Not being able to stop or control worryin = Not at all Worrying too much about different things: 0 = Not at all Trouble relaxin = Not at all Being so restless that it is hard to sit still: 0 = Not at all Becoming easily annoyed or irritable: 0 = Not at all Feeling afraid as if something awful might happen: 0 = Not at all Total AMBER-7 score (0-4 normal; 5-9 mild; 10-14 moderate; 15-21 severe): 0 Source: Developed by Drs. Ayan Whittaker, Felicitas Dhillon, Sina Andujar and colleagues, with an educational suresh from [employer]. AMBER-7 Assessment Billing AMBER-7 Assessment Tool: AMBER-7 Assessment 61313 Physical exam (Primary Care) Vital Signs: Last Vital Signs Temp 97.3 F 08/18/24 14:00 Pulse 65 08/18/24 14:00 BP 128/74 08/18/24 14:00 Pulse Ox 99 08/18/24 14:00 Oxygen Delivery Method Room Air 08/18/24 14:00 BMI result Body Mass Index 33.9 Tobacco/Smoking Status: Tobacco use Status Tobacco use date assessed 08/18/24 08/18/24 14:06 Patient Tobacco Use Status Former Tobacco user 08/18/24 14:06 Tobacco use type Cigarette 08/18/24 14:06 e-Cigarette/Vaping Use Never Used 08/18/24 14:06 PHQ-9: PHQ-9 Score PHQ-9: Total score 0 08/18/24 14:38 Depression Screening Interpretation: Negative Thrive Assessment: Date of Thrive Assessment Date Thrive assessed 08/18/24 08/18/24 14:06 Const General: alert; No acute distress Eyes Conjunctivae: conjunctivae normal Resp Auscultation: clear to auscultation bilaterally Cardio Rate: regular rate Rhythm: regular rhythm GI Inspection: Yes normal to inspection Extrem General: Yes normal to inspection and No edema Coding Level of Care Code Est Pt Level 4 (00259) Diagnoses S/P laparoscopic sleeve gastrectomy Z98.84 Hypercholesterolemia E78.00 Steatosis, liver K76.0 Gastroesophageal reflux disease without esophagitis K21.9 Esophagitis presence: without esophagitis Type 2 diabetes mellitus with hyperglycemia, without long-term current use of insulin E11.65 Diabetes mellitus chcf insulin use: without chcf use Class 3 severe obesity due to excess calories without serious comorbidity with body mass index (BMI) of 45.0 to 49.9 in adult E66.01; Z68.42 Body mass index: BMI 45.0-49.9 Obesity classification: adult class 3 (BMI >= 40) Obesity type: due to excess calories Serious obesity comorbidity presence: without serious comorbidity Panniculus adiposus E65 Additional Codes AMBER-7 Assessment Billing - AMBER-7 Assessment Tool: AMBER-7 Assessment 42753 ([id number]) PHQ-9 - 51901 - PHQ-9 Billing: Yes ([id number]) Assessment & Plan Assessment & Plan (1) S/P laparoscopic sleeve gastrectomy: Comment: 2020 Code(s): Z98.84 - Bariatric surgery status Category: Surgical Plan: Patient is advised to eat healthy, keep well hydrated, keep active and have adequate sleep. (2) Hypercholesterolemia: Code(s): E78.00 - Pure hypercholesterolemia, unspecified Category: Medical Plan: Avoid fried foods, chicken skin, eggs, butter margarine, pastries and meat. Be it pork or beef they have a lot of cholesterol On atorvastatin 20 mg once a day (3) Steatosis, liver: Code(s): K76.0 - Fatty (change of) liver, not elsewhere classified Category: Medical Plan: low-fat diet and exercise (4) GERD (gastroesophageal reflux disease): Comment: uses omeprazole prn Code(s): K21.9 - Gastro-esophageal reflux disease without esophagitis Category: Medical Qualifiers: Esophagitis presence: without esophagitis Qualified Code(s): K21.9 - Gastro-esophageal reflux disease without esophagitis Plan: Avoid the foods that causes that usually spicy foods, tomato products, juices, coffee, soda and foods that your sensitive to. After eating do not lie down, allow 3-4 hours before in lie down. And keep the head of bed above 30 degrees to avoid the acid from going up. (5) Type 2 diabetes mellitus with hyperglycemia: Comment: Dr. Echeverria Code(s): E11.65 - Type 2 diabetes mellitus with hyperglycemia Category: Medical Qualifiers: Diabetes mellitus chcf insulin use: without chcf use Qualified Code(s): E11.65 - Type 2 diabetes mellitus with hyperglycemia Plan: Decrease the amount of carbohydrate intake, pasta, bread, rice and potatoes are all sugar and that is aside from all the sweet stuff, remember that fruits are good but they are Sweet also. Hemoglobin A1c goal of less than 6.5. 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 She has achieved a reduction in weight following a sleeve gastrectomy in 2020 and continues to manage her conditions with atorvastatin, achieving an LDL of 70. Her diabetes is well-controlled with a Hemoglobin A1c of 5.4, maintained by diet and exercise. She also reports swelling in her feet, noticed predominantly by day's end. Recent assessments show normal findings in blood counts, electrolytes, renal, and liver functions. Her last mammogram was conducted in August 2023, and she needs scheduling for a colonoscopy as part of her preventive care. Health Maintenance - Last mammogram conducted in August 2023. - Reminder for colonoscopy not yet scheduled. - Blood work indicates normal blood count, electrolytes, renal function, and liver function. - Hemoglobin A1c at 5.4, indicating well-controlled diabetes. - LDL cholesterol at 70 on atorvastatin therapy. - Followed no-fat diet and regular exercise regimen. Social History - Resides in [facility]. - Actively managing weight through diet and exercise. Review of Systems - Cardiovascular: Reports swelling in feet, especially towards end of the day. - Respiratory: Denies chest pain; breathing is stable. - Musculoskeletal: Denies swelling in legs except mentioned foot issue. - General: Denies significant fatigue or weakness. Physical Exam Results - Labs: Normal blood count, electrolytes, renal function, liver function. - Hemoglobin A1c: 5.4 - LDL Cholesterol: 70 Plan 1. 4. Preventive measures include planning future screenings such as mammography and continuing efforts for a colonoscopy. The patient's slightly swollen feet will be observed and she will consult a new commercial marketing specialist. These strategies aim to support her ongoing management of chronic conditions and overall wellness.: Patient was informed and verbally consented to the use of an ambient scribe for clinic note documentation during this visit. Discussion Notes During the visit, I reviewed the patient's overall health status, acknowledging her success with current management of cholesterol and diabetes with atorvastatin and lifestyle measures. I emphasized the need to pursue preventive screenings and address foot swelling through specialist referral. Discussions touched on new foot care, importance of controlling her current chronic issues, and setting follow-up for anticipated screenings. She is aware of maintaining her health goals with a low-fat diet, regular exercise, and compliance with medication plans, which are crucial to her overall health outcomes. Patient Instructions - Continue atorvastatin 20 mg daily. - Maintain no-fat diet and regular exercise. - Monitor foot swelling; contact a new oil well fishing tool operator. - Schedule and complete colonoscopy. - Follow-up for preventive screenings like mammography as scheduled. Orders: Referrals Podiatry Referral E11.65 - Type 2 diabetes mellitus with hyperglycemia Plastic Surgery Referral E65 - Localized adiposity Medications: Refilled atorvastatin 20 mg PO DAILY 90 tabs 1RF E78.00 - Pure hypercholesterolemia, unspecified omeprazole 20 mg PO DAILY 90 caps 2RF K21.9 - Gastro-esophageal reflux disease without esophagitis
--- OUTSIDE RECORDS SUMMARY | 2024-08-18 15:41 | XMS_ITS | Clinical Summary ---
[facility] Address [id number] [place] [id number] Care Team Providers Care Sample Selector Name Role Phone Yael Hoskins MD Primary Care Provider [phone] Social History Tobacco Use Types Packs/Day Years Used Date Smoking Tobacco: Never Smokeless Tobacco: Never Alcohol Use Standard Drinks/Week Comments No 0 (1 standard drink = 0.6 oz pur e alcohol) Comments Unknown Sex and Gender Information Value Date Recorded Sex Assigned at Not on file Legal Sex Female 9:32 AM EST Gender Identity Not on file Sexual Orientation Not on file Obstetrics History Plan of Treatment Health Maintenance Due Date Last Done Comments Breast Cancer Screening 1969 DTaP,Tdap,and Td Vaccines (1 - Tdap) 1988 Hepatitis B Vaccines (1 of 3 - 19+ 3-dose series) 1988 Cervical Cancer Screening: P ap Smear 1990 Pneumococcal Vaccine: 50+ Ye ars (1 of 1 - PCV) 11/03/2019 Zoster Vaccines (1 of 2) 11/03/2019 COVID-19 Vaccine (2023-2 5 season) 2024 Influenza Vaccine (#1) 2024 HIB Vaccines Aged Out No longer eligi ble based on patient's age to complete this topic HPV Vaccines Aged Out No longer eligi ble based on patient's age to complete this topic Hepatitis A Vaccines Aged Out No long er eligible based on patient's age to complete this topic IPV Vaccines Aged Out No longer eligi ble based on patient's age to complete this topic MMR Vaccines Aged Out No longer eligi ble based on patient's age to complete this topic Meningococcal ACWY Vaccine Aged Out N o longer eligible based on patient's age to complete this topic Meningococcal B Vacine Aged Out No lo nger eligible based on patient's age to complete this topic Pneumococcal Vaccine: Pediat rics (0 to 5 Years) and At-Risk Patients (6 to 64 Years) Aged Out No longer eligible b ased on patient's age to complete this topic RSV Immunization Patients Un ana 20 months Aged Out No longer eligible b ased on patient's age to complete this topic Varicella Vaccines Aged Out No longer eligible based on patient's age to complete this topic Care Teams Sample Selector Relationship Specialty Start Date End Date Yael Hoskins MD [address] [place] [address] [address] [facility] [place] [address] PCP - General Internal Medicine 08/18/19
== END 2024-08-18 14:50 | disposition home or self-care (01) ==
LOC: HO.HMCH 13:54
PROVIDERS: PCP Internal Medicine; Visit Provider Internal Medicine
DX: E11.65 Type 2 diabetes mellitus with hyperglycemia (principal); E66.01 Morbid (severe) obesity due to excess calories; Z68.42 Body mass index [BMI] 45.0-49.9, adult; Z98.84 Bariatric surgery status; E78.00 Pure hypercholesterolemia, unspecified; K76.0 Fatty (change of) liver, not elsewhere classified; K21.9 Gastro-esophageal reflux disease without esophagitis; E65 Localized adiposity

== ENCOUNTER → 2024-08-18 13:53 | Outpatient (BNVA) | payer OTHER, SELFPAY | PROVIDERS: PCP Internal Medicine; Visit Provider Internal Medicine | DX: E78.00 Pure hypercholesterolemia, unspecified (principal); K76.0 Fatty (change of) liver, not elsewhere classified; K21.9 Gastro-esophageal reflux disease without esophagitis; E11.65 Type 2 diabetes mellitus with hyperglycemia; E66.01 Morbid (severe) obesity due to excess calories; Z68.42 Body mass index [BMI] 45.0-49.9, adult; E65 Localized adiposity; Z98.84 Bariatric surgery status | CPT/HCPCS: 96127; 99212 ==

== ENCOUNTER 2024-11-04 11:56 | Outpatient (REF) | payer OTHER, SELFPAY ==
--- OUTSIDE RECORDS SUMMARY | 2024-11-04 13:38 | XMS_ITS | Clinical Summary ---
Author Organization [facility] Address [address] [place] [phone] Phone Care Team Providers Care Medical Administrative Name Role Phone Yael Hoskins MD Primary Care Provider [phone] Social History Tobacco Use Types Packs/Day Years [...] Last Done Comments Breast Cancer Screening 1969 Diabetes: Annual GFR (Glomer ular Filtration Rate) 1969 Diabetes: Annual Foot Exam 11/03/1979 Diabetes: Annual Retina Eye Exam 11/03/1979 DTaP,Tdap,and Td Vaccines (1 - Tdap) 1988 Hepatitis B Vaccines (1 of 3 - 19+ 3-dose series) 1988 Pneumococcal Vaccine: 50+ Ye ars (1 of 2 - PCV) 1988 Pneumococcal Vaccine: Pediat rics (0 to 5 Years) and At-Risk Patients (6 to 64 Years) (1 of 2 - PCV) 1988 Cervical Cancer Screening: P ap Smear 1990 Zoster Vaccines (1 of 2) 11/03/2019 COVID-19 Vaccine (2023-2 5 season) 2024 Cholesterol Screening (Lipid Panel) 09/22/2024 Colorectal Cancer Screening: Colonoscopy 09/22/2024 Depression Screening 09/22/2024 Diabetes: Annual Urine Albumin-Creatinine Ratio (uACR) 09/22/2024 Diabetes: Blood Sugar Contro l Test (HGBA1C) 09/22/2024 HIV Screening 09/22/2024 Hepatitis C Screening 09/22/2024 Social Influencers of Health Screening 09/22/2024 Influenza Vaccine (Season Ended) 2025 HIB Vaccines Aged Out No longer eligi [...] age to complete this topic Meningococcal B Vaccine Aged Out No l onger eligible based on patient's age to complete this topic RSV Immunization Patients Un ana 20 months Aged Out No longer eligible b ased on patient's age to complete this topic Varicella Vaccines Aged Out No longer eligible based on patient's age to complete this topic Insurance [place]ICA[place] - [place] Care Teams Medical Administrative Relationship Specialty Start Date End Date Yael Hoskins MD [address] [place] [address] [address] [facility] [place] [address] PCP - General Internal Medicine 08/18/19
== END 2024-11-04 11:57 | disposition home or self-care (01) ==
LOC: HO.MAMMO 11:56
PROVIDERS: PCP Internal Medicine; Visit Provider Internal Medicine
DX: Z12.31 Encounter for screening mammogram for malignant neoplasm of breast (principal)
CPT/HCPCS: 77063; 77067

== ENCOUNTER → 2024-11-04 12:15 | Outpatient (BNV) | payer OTHER, SELFPAY | PROVIDERS: PCP Internal Medicine; Visit Provider Internal Medicine | DX: Z12.31 Encounter for screening mammogram for malignant neoplasm of breast (principal) | CPT/HCPCS: 77063; 77067 ==

== ENCOUNTER 2024-12-08 10:51 | Outpatient (AMB) | payer OTHER, SELFPAY ==
[2024-12-08 10:54] VITALS: BP 106/78; PULSE 69; TEMP 36.3; O2SAT 96; BMI 32.1
--- NOTE | 2024-12-08 10:54 | MHC.PC.OV ---
Vital Signs 12/08/24 10:54 Height 5 ft 2 in Weight 175 lb 6 oz BMI 32.1 BP 106/78 Blood Pressure Location Lt brachial Position Sitting Pulse 69 Pulse Source Pulse Oximeter Temp 97.3 F Temp Source Temporal Artery Scan Pulse Oximetry (%) 96 Oxygen Delivery Method Room Air Intake Visit Reasons: DM Allergies metformin Adverse Reaction (Intermediate, Verified 08/18/24 14:04) nausea simvastatin Adverse Reaction (Intermediate, Verified 08/18/24 14:04) tiredness Medication List - Last Reconciled 12/08/24 by Yael Hoskins MD atorvastatin 20 mg PO DAILY biotin mg PO blood sugar diagnostic (FreeStyle Lite Strips) As directed check the blood sugars once a day blood-glucose meter (FreeStyle [place] Lite kit) As directed celecoxib 200 mg PO DAILY dulaglutide 4.5 mg (0.5 mL) subcut QWEEK 30 days hydrocortisone 2.5% (Proctosol HC) 1 appl [place] BID-QID PRN lancets (FreeStyle Lancets) As directed, check the BS QD multivitamin 1 tab PO DAILY omeprazole 20 mg PO DAILY Tobacco use date assessed: 08/18/24 Dental Screening Dental Screen Date: 08/18/24 Did you have a dental visit in the last 12 months?: Yes Did you have a dental problem in the last 6 months where you did not have access to dental care?: No Was dental information given to patient?: Patient has dentist HPI DM HPI Details memory problem [facility] Medical History (Updated 12/08/24 @ 11:37 by Yael Hoskins MD) Obesity Viral upper respiratory illness UTI (urinary tract infection) Obesity (BMI 30-39.9) Viral illness BMI 33.0-33.9,adult Esophagitis Liver fibrosis Steatosis, liver ATUL (obstructive sleep apnea) COVID-19 vaccine administered Arthritis History of postoperative nausea Diabetes Allergic rhinitis Morbid obesity Impaired glucose tolerance Asthma Osteoarthritis of right knee Hypercholesterolemia 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 Right carpal tunnel syndrome Vitamin D deficiency GERD (gastroesophageal reflux disease) Sinus infection Seasonal allergies Menopausal vaginal dryness Post-menopausal bleeding Surgical History History of sleeve gastrectomy History of right salpingo-oophorectomy Hx of laparoscopic gastric banding History of esophagogastroduodenoscopy (EGD) History of cholecystectomy Hx of tubal ligation Hx of section Family History Mother Diabetes HTN (hypertension) High cholesterol Father Heart disease Social History Housing: Apartment Are you a primary daycare assistant to a significant other at home: No Do you presently have visiting nurse or other home services: No Alcohol intake: former Patient Tobacco Use Status: Former Tobacco user Tobacco use type: Cigarette Years Smoked: 25 e-Cigarette/Vaping Use: Never Used Second Hand Smoke Exposure: No service: No Current occupational status: employed Current occupational exposures/hazards: No Sexual orientation: Straight/Heterosexual Gender identity: Female Cognitive needs: No Hearing needs: No Vision needs: Yes Female Reproductive History Menstrual Age of Menarche: 11 Questionnaire PHQ-9 Over the last 2 weeks, how often have you been bothered by any of the following problems? 1. Little interest or pleasure in doing things: not at all 2. Feeling down, depressed, or hopeless: not at all 3. Trouble falling or staying asleep, or sleeping too much: several days 4. Feeling tired or having little energy: several days 5. Poor appetite or overeating: not at all 6. Feeling bad about yourself - or that you are a failure or have let yourself or your family down: not at all 7. Trouble concentrating on things, such as reading the newspaper or watching television: several days 8. Moving or speaking so slowly that other people could have noticed. Or the opposite - being so fidgety or restless that you have been moving around a lot more than usual: several days 9. Thoughts that you would be better off or of hurting yourself in some way: not at all Total score: 4 Source: Developed by Drs. Ayan Whittaker, Felicitas Dhillon, Sina Andujar and colleagues, with an educational suresh from [employer]. Thrive Questionnaire Date Thrive assessed: 12/01/24 I am a: Patient What is your living situation today?: I have a steady place to live Within the past 12 months, did the food you bought not last and you didn't have the money to get more?: Never true Within the past 12 months, did you worry whether your food would run out before you got money to buy more?: Never true Do you have trouble paying for medicines?: No Do you have trouble getting transportation to medical appointments?: No Do you have trouble paying your heating and electricity bill?: No Do you have trouble taking care of your child, family member or friend?: No Do you have trouble with day-to-day activities such as bathing, preparing meals, shopping, managing finances, etc.?: No Are you currently unemployed and looking for a job?: No Are you interested in more education?: No Please select the resources that you would like help with: None Currently or been in a relationship where the following occur: No concerns reported THRIVE Score: 0 AUDIT C Alcohol Use Questionnaire (AUDIT-C) 1. How often do you have a drink containing alcohol?: Never 3. How often do you have six or more drinks on one occasion?: Never Total Score: 0 AMBER-7 AMB Questionnaire AMBER-7 Date AMBER - 7 assessed: 08/18/24 Feeling nervous, anxious, or on edge: 0 = Not at all Not being able to stop or control worryin = Nearly every day Worrying too much about different things: 0 = Not at all Trouble relaxin = Not at all Being so restless that it is hard to sit still: 0 = Not at all Becoming easily annoyed or irritable: 3 = Nearly every day Feeling afraid as if something awful might happen: 0 = Not at all Total AMBER-7 score (0-4 normal; 5-9 mild; 10-14 moderate; 15-21 severe): 6 Source: Developed by Drs. Ayan Whittaker, Felicitas Dhillon, Sina Andujar and colleagues, with an educational suresh from [employer]. Physical exam (Primary Care) Vital Signs: Last Vital Signs Temp 97.3 F 12/08/24 10:54 Pulse 69 12/08/24 10:54 BP 106/78 12/08/24 10:54 Pulse Ox 96 12/08/24 10:54 Oxygen Delivery Method Room Air 12/08/24 10:54 BMI result Body Mass Index 32.1 Tobacco/Smoking Status: Tobacco use Status Tobacco use date assessed 08/18/24 12/08/24 11:01 Patient Tobacco Use Status Former Tobacco user 12/08/24 11:01 Tobacco use type Cigarette 12/08/24 11:01 e-Cigarette/Vaping Use Never Used 12/08/24 11:01 PHQ-9: PHQ-9 Score PHQ-9: Total score 4 12/08/24 11:34 Thrive Assessment: Date of Thrive Assessment Date Thrive assessed 12/01/24 12/08/24 11:01 Currently or been in a relationship where the following occur: No concerns reported Const General: alert; No acute distress Eyes Conjunctivae: conjunctivae normal Resp Auscultation: clear to auscultation bilaterally Cardio Rate: regular rate Rhythm: regular rhythm GI Inspection: Yes normal to inspection Extrem General: Yes normal to inspection and No edema Results AMB Hemoglobin A1c AMB Hemoglobin A1c 5.5 % Last Edit by Ita Estrada CMA on 12/08/24 11:13 Results Reviewed Results Reviewed: Laboratory Last Values Hgb A1c (Clinic) 5.5 % (4.0-6.0) 12/08/24 11:01 Coding Level of Care Code Est Pt Level 4 (57666) Complex EM visit Add On G2211 Diagnoses Type 2 diabetes mellitus with hyperglycemia, without long-term current use of insulin E11.65 Diabetes mellitus intermediate frame tender insulin use: without residential use S/P laparoscopic sleeve gastrectomy Z98.84 Obesity (BMI 30-39.9) E66.9 Hypercholesterolemia E78.00 Gastroesophageal reflux disease without esophagitis K21.9 Esophagitis presence: without esophagitis Colon cancer screening Z12.11 Steatosis, liver K76.0 SOB (shortness of breath) R06.02 Assessment & Plan Assessment & Plan (1) Type 2 diabetes mellitus with hyperglycemia: Comment: Dr. Echeverria Code(s): E11.65 - Type 2 diabetes mellitus with hyperglycemia Category: Medical Qualifiers: Diabetes mellitus intermediate frame tender insulin use: without residential use Qualified Code(s): E11.65 - Type 2 diabetes mellitus with hyperglycemia Plan: Decrease the amount of carbohydrate intake, pasta, bread, rice and potatoes are all sugar and that is aside from all the sweet stuff, remember that fruits are good but they are Sweet also. Hemoglobin A1c goal of less than 6.5. Patient is at goal on Trulicity at 4.5 mg once a week (2) S/P laparoscopic sleeve gastrectomy: Comment: 2020 Code(s): Z98.84 - Bariatric surgery status Category: Surgical Plan: Continue to follow-up with bariatric (3) Obesity (BMI 30-39.9): Code(s): E66.9 - Obesity, unspecified Category: Medical Plan: Diet and exercise (4) Hypercholesterolemia: Code(s): E78.00 - Pure hypercholesterolemia, unspecified Category: Medical Plan: Avoid fried foods, chicken skin, eggs, butter margarine, pastries and meat. Be it pork or beef they have a lot of cholesterol on atorvastatin 20 mg once a day July 2024 last blood work (5) GERD (gastroesophageal reflux disease): Comment: uses omeprazole prn Code(s): K21.9 - Gastro-esophageal reflux disease without esophagitis Category: Medical Qualifiers: Esophagitis presence: without esophagitis Qualified Code(s): K21.9 - Gastro-esophageal reflux disease without esophagitis Plan: Avoid the foods that causes that usually spicy foods, tomato products, juices, coffee, soda and foods that your sensitive to. After eating do not lie down, allow 3-4 hours before in lie down. And keep the head of bed above 30 degrees to avoid the acid from going up. (6) Colon cancer screening: Comment: Index screening colonoscopy with anesthesia consult history asthma and ATUL Code(s): Z12.11 - Encounter for screening for malignant neoplasm of colon Category: Medical Plan: Patient is reminded about colonoscopy (7) Steatosis, liver: Code(s): K76.0 - Fatty (change of) liver, not elsewhere classified Category: Medical Plan: Low-fat diet and exercise (8) SOB (shortness of breath): Code(s): R06.02 - Shortness of breath Category: Medical Plan History of Present Illness The patient is a 54-year-old female presenting for a follow-up visit to address multiple chronic conditions and preventative care measures. The patient has a history of obesity, which has been managed with a laparoscopic sleeve gastrectomy performed in 2020, following the removal of a laparoscopic gastric banding device in 2019. She has experienced a 10-pound weight loss, which is a positive outcome in her weight management journey. The patient has hepatic steatosis and hypercholesterolemia, managed with atorvastatin 20 mg once daily. Her last blood work in July 2024 showed normal liver function and an LDL cholesterol level of 70 mg/dL, which is below the target of less than 100 mg/dL. The patient has a diagnosis of diabetes mellitus, with a current hemoglobin A1c goal of less than 6.5%. She is currently achieving this goal with a hemoglobin A1c of 5.5% and is on Trulicity 4.5 mg once a week. The patient reports bilateral knee osteoarthritis, which contributes to her physical limitations. Preventative care measures include a reminder for colon cancer screening with a stool test, as the patient has a family history of colon cancer. Additionally, a lung function test and chest X-ray have been recommended due to her history of smoking and current shortness of breath. Health Maintenance - Colon cancer screening with stool test due to family history of colon cancer - Lung function test and chest X-ray recommended due to history of smoking and shortness of breath - Mammogram up to date as of October 2024 Social History - Former smoker, quit 16 years ago with the aid of Chantix - Reports stress related to housing situation and financial responsibilities Review of Systems - Respiratory: Reports shortness of breath with minimal exertion - Neurological: Reports memory concerns, denies family history of memory disorders Physical Exam - Cognitive: Patient was able to recall objects and perform simple calculations Results - Labs: Normal blood count, electrolytes, renal function, hemoglobin A1c, liver function, vitamin B12, vitamin D, folic acid, thyroid function - Cholesterol: LDL cholesterol level at 70 mg/dL Plan The patient's diabetes management plan includes maintaining a hemoglobin A1c goal of less than 6.5%, which she is currently achieving with a level of 5.5%. She is on Trulicity 4.5 mg once a week and will continue to follow up with bariatrics for diet and exercise guidance. For hypercholesterolemia, the patient is on atorvastatin 20 mg once daily, with her LDL cholesterol level at 70 mg/dL, which is below the target of less than 100 mg/dL. She will continue this medication regimen and monitor her cholesterol levels regularly. Preventative care includes a reminder for colon cancer screening with a stool test due to her family history of colon cancer. Additionally, a lung function test and chest X-ray have been recommended due to her history of smoking and current shortness of breath. Patient was informed and verbally consented to the use of an ambient scribe for clinic note documentation during this visit. Discussion Notes During the visit, I discussed the importance of maintaining a hemoglobin A1c goal of less than 6.5% with the patient, who is currently achieving this target. We reviewed her cholesterol management plan, emphasizing the need to keep her LDL cholesterol level below 100 mg/dL, which she is successfully doing with atorvastatin. I also highlighted the necessity of completing a colon cancer screening with a stool test due to her family history and recommended a lung function test and chest X-ray given her history of smoking and current respiratory symptoms. Patient Instructions - Continue taking Trulicity 4.5 mg once a week and follow up with bariatrics for diet and exercise guidance. - Take atorvastatin 20 mg once daily and monitor cholesterol levels regularly. - Complete the colon cancer screening with a stool test. - Schedule and complete a lung function test and chest X-ray. Orders: Orders AMB Hemoglobin A1c Today Z13.9 - Encounter for screening, unspecified PFT pulmonary function test Today R06.02 - Shortness of breath XR chest 2V Today R06.02 - Shortness of breath Medications: Refilled celecoxib 200 mg PO DAILY 90 caps 1RF atorvastatin 20 mg PO DAILY 90 tabs 1RF E78.00 - Pure hypercholesterolemia, unspecified
--- OUTSIDE RECORDS SUMMARY | 2024-12-08 12:02 | XMS_ITS | Clinical Summary ---
Author Organization [facility] Address [address] [place] [id number] Phone Care Team Providers Care Waxing Machine Operator Name Role Phone Yael Hoskins MD Primary Care Provider [phone] Social History Tobacco Use Types Packs/Day Years [...] ars (1 of 2 - PCV) 1988 Cervical Cancer Screening: P ap Smear 1990 Zoster Vaccines (1 of 2) 11/03/2019 COVID-19 Vaccine (1 - 2023-2 5 season) 2024 Depression Screening 05/21/2024 Cholesterol Screening (Lipid Panel) 09/22/2024 Colorectal Cancer Screening: Colonoscopy 09/22/2024 Diabetes: Annual Urine Albumin-Creatinine Ratio (uACR) 09/22/2024 Diabetes: Blood Sugar Contro l Test (HGBA1C) 09/22/2024 HIV Screening 09/22/2024 Hepatitis C Screening 09/22/2024 Social Influencers of Health Screening 09/22/2024 Influenza Vaccine (#1) 2025 HIB Vaccines Aged Out No longer [...] topic Insurance MEDICAID - [place] Care Teams Waxing Machine Operator Relationship Specialty Start Date End Date Yael Hoskins MD [address] [place] [address] [address] [facility] [place] [address] PCP - General Internal Medicine 08/18/19
== END 2024-12-08 11:50 | disposition home or self-care (01) ==
LOC: HO.HMCH 10:53
PROVIDERS: PCP Internal Medicine; Visit Provider Internal Medicine
DX: E11.65 Type 2 diabetes mellitus with hyperglycemia (principal); Z98.84 Bariatric surgery status; E66.9 Obesity, unspecified; Z68.32 Body mass index [BMI] 32.0-32.9, adult; E78.00 Pure hypercholesterolemia, unspecified; K21.9 Gastro-esophageal reflux disease without esophagitis; Z12.11 Encounter for screening for malignant neoplasm of colon; K76.0 Fatty (change of) liver, not elsewhere classified; R06.02 Shortness of breath

== ENCOUNTER 2024-12-08 10:51 | Outpatient (REF) | payer OTHER, SELFPAY ==
--- NOTE | ~2024-12-08 | XR_ITS ---
CLINICAL HISTORY: R06.02 - Shortness of breath Chest Radiographs, 2 views Comparison: None available Findings: No cardiomegaly. Normal mediastinal contours. No pneumothorax. No opacity. No pleural effusion. Normal upper abdomen. Clips in the upper abdomen. No acute fracture. Impression: No acute findings. This document has been electronically signed by: Ella Toro MD on 12/09/2024 22:09:36
== END 2024-12-08 10:52 | disposition home or self-care (01) ==
LOC: HO.XRAY 10:51
PROVIDERS: PCP Internal Medicine; Visit Provider Internal Medicine
DX: E11.9 Type 2 diabetes mellitus without complications (principal); R06.02 Shortness of breath
CPT/HCPCS: 71046; 83036; 99212

== ENCOUNTER → 2024-12-08 12:04 | Outpatient (BNV) | payer OTHER, SELFPAY | PROVIDERS: PCP Internal Medicine; Visit Provider Radiology Diagnostic Radiology | DX: R06.02 Shortness of breath (principal) | CPT/HCPCS: 71046 ==

== ENCOUNTER 2025-02-24 10:01 | Outpatient (REF) | payer OTHER, SELFPAY ==
--- NOTE | 2025-02-24 10:45 | PFT_ITS ---
Flows: FEV1: 107 % of predicted at 2.65 L FVC: 102 % of predicted at 3.13 L FEV1/FVC: 85 % Bronchodilator response: Present Volumes: Total lung capacity: 90 % of predicted at 4.33 L Residual volume: 88 % of predicted at 1.33 L Slow vital capacity: 90 % of predicted at 3.00 L Expiratory reserve volume: 123 % of predicted at 1.03 L Diffusion capacity: Normal Impression: No obstructive or restrictive ventilatory defect. Positive bronchodilator response. MTDD
[2025-02-24 11:21] VITALS: PULSE 63; O2SAT 99
--- OUTSIDE RECORDS SUMMARY | 2025-02-24 11:46 | XMS_ITS | Clinical Summary ---
Author Organization [facility] Address [address] [place] [id number] Phone Care Team Providers Care Cyber Security Administrator Name Role Phone Yael Hoskins MD Primary Care Provider [phone] Social History Tobacco Use Types Packs/Day Years [...] Last Done Comments Breast Cancer Screening 1969 Colorectal Cancer Screening: Colonoscopy 1969 DTaP,Tdap,and Td Vaccines (1 - Tdap) 1988 Hepatitis B Vaccines (1 of 3 - 19+ 3-dose series) 1988 Pneumococcal Vaccine: 50+ Ye ars (1 of 2 - PCV) 1988 Cervical Cancer Screening: P ap Smear 1990 Zoster Vaccines (1 of 2) 11/03/2019 Depression Screening 05/21/2024 HIV Screening 09/22/2024 Hepatitis C Screening 09/22/2024 Social Influencers of Health Screening 09/22/2024 COVID-19 Vaccine (1 - 2023-2 5 season) 2025 Influenza Vaccine (#1) 2025 RSV Immunization Adult Patie nts (1 - 1-dose 75+ series) 2044 HIB Vaccines Aged Out No longer eligi [...] topic Insurance [place] - [place] Care Teams Cyber Security Administrator Relationship Specialty Start Date End Date Yael Hoskins MD [address] [place] [address] [address] [facility] [place] [address] PCP - General Internal Medicine 08/18/19
== END 2025-02-24 10:02 | disposition home or self-care (01) ==
LOC: HO.RESP 10:01
PROVIDERS: PCP Internal Medicine; Visit Provider Internal Medicine
DX: R06.02 Shortness of breath (principal)
CPT/HCPCS: 94010; 94640; 94727; 94729

== ENCOUNTER → 2025-02-24 10:45 | Outpatient (BNV) | payer OTHER, SELFPAY | PROVIDERS: PCP Internal Medicine; Visit Provider Internal Medicine Pulmonary Disease | DX: R06.02 Shortness of breath (principal) | CPT/HCPCS: 94060; 94727; 94729 ==

== ENCOUNTER 2025-04-06 10:51 | Outpatient (AMB) | payer OTHER, SELFPAY ==
[2025-04-06 11:00] VITALS: BP 110/62; PULSE 72; O2SAT 98; BMI 31.6
--- NOTE | 2025-04-06 11:00 | A.OFFPC_ITS ---
Vital Signs 04/06/25 11:00 Height 5 ft 2 in Weight 173 lb BMI 31.6 BP 110/62 Blood Pressure Location Lt brachial Position Sitting Pulse 72 Pulse Source Pulse Oximeter Pulse Oximetry (%) 98 Oxygen Delivery Method Room Air Intake Visit Reasons: DM Allergies metformin Adverse Reaction (Intermediate, Verified 04/06/25 11:00) nausea simvastatin Adverse Reaction (Intermediate, Verified 04/06/25 11:00) tiredness Medication List - Last Reconciled 04/06/25 by Yael Hoskins MD atorvastatin 20 mg PO DAILY biotin mg PO blood sugar diagnostic (FreeStyle Lite Strips) As directed check the blood sugars once a day blood-glucose meter (FreeStyle [place] Lite kit) As directed celecoxib 200 mg PO DAILY dulaglutide 4.5 mg (0.5 mL) subcut QWEEK 30 days hydrocortisone 2.5% (Proctosol HC) 1 appl AR BID-QID PRN lancets (FreeStyle Lancets) As directed, check the BS QD multivitamin 1 tab PO DAILY omeprazole 20 mg PO DAILY Tobacco use date assessed: 08/18/24 Dental Screening Dental Screen Date: 08/18/24 HPI HPI Comments History of Present Illness Details History of Present Illness The patient is a 54-year-old obese female presenting for a follow-up visit. Her past medical history is significant for hepatic steatosis, gastroesophageal reflux disease, hypercholesterolemia, esophagitis, and diabetes mellitus. Her surgical history includes the removal of a laparoscopic gastric banding device in 2019, a sleeve gastrectomy in 2020, and repair of a paraesophageal hernia. Her last visit was on December 08, 2024. The patient's mammogram is up to date as of October 2024, and a Cologuard test from November 2024 was negative. Her last eye exam was on March 17, 2025, which showed cataracts but no retinopathy. A pulmonary function test showed no obstructive or restrictive defect but did reveal a positive bronchodilator response. Her last blood work in July 2024 showed a normal blood count and an LDL cholesterol level of 70. Health Maintenance - Mammogram: Up to date as of October 2024. - Colon cancer screening: Cologuard test was negative in November 2024. - Diabetic eye exam: Completed on 2024, showing cataracts without retinopathy. - Bariatric care: The patient is advised to continue follow-up with bariatrics. - Diet and exercise: Advised for managem ent of cholesterol, reflux, and overall health. Social History - Activity level: Patient reports being active with work and household activities such as cooking. Results - Labs: Last blood work from July 2024 showed a normal blood count and an LDL of 70. - Tests: Cologuard test in November 2024 was negative. - Diagnostics: Pulmonary function test s howed no obstructive or restrictive defect and a positive bronchodilator response. [facility] Medical History (Updated 04/06/25 @ 11:34 by Yael Hoskins MD) Obesity Viral upper respiratory illness UTI (urinary tract infection) Obesity (BMI 30-39.9) Viral illness BMI 33.0-33.9,adult Esophagitis Liver fibrosis Steatosis, liver ATUL (obstructive sleep apnea) COVID-19 vaccine administered Arthritis History of postoperative nausea Diabetes Allergic rhinitis Morbid obesity Impaired glucose tolerance Asthma Osteoarthritis of right knee Hypercholesterolemia 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 Right carpal tunnel syndrome Vitamin D deficiency GERD (gastroesophageal reflux disease) Sinus infection Seasonal allergies Menopausal vaginal dryness Post-menopausal bleeding Surgical History History of sleeve gastrectomy History of right salpingo-oophorectomy Hx of laparoscopic gastric banding History of esophagogastroduodenoscopy (EGD) History of cholecystectomy Hx of tubal ligation Hx of section Family History Mother Diabetes HTN (hypertension) High cholesterol Father Heart disease Social History Housing: Apartment Are you a primary hospice care sales consultant to a significant other at home: No Do you presently have visiting nurse or other home services: No Alcohol intake: former Patient Tobacco Use Status: Former Tobacco user Tobacco use type: Cigarette Years Smoked: 25 e-Cigarette/Vaping Use: Never Used Second Hand Smoke Exposure: No service: No Current occupational status: employed Current occupational exposures/hazards: No Sexual orientation: Straight/Heterosexual Gender identity: Female Cognitive needs: No Hearing needs: No Vision needs: Yes Female Reproductive History Menstrual Age of Menarche: 11 Questionnaire Thrive Questionnaire Date Thrive assessed: 12/01/24 I am a: Patient What is your living situation today?: I have a steady place to live Within the past 12 months, did the food you bought not last and you didn't have the money to get more?: Never true Within the past 12 months, did you worry whether your food would run out before you got money to buy more?: Never true Do you have trouble paying for medicines?: No Do you have trouble getting transportation to medical appointments?: No Do you have trouble paying your heating and electricity bill?: No Do you have trouble taking care of your child, family member or friend?: No Do you have trouble with day-to-day activities such as bathing, preparing meals, shopping, managing finances, etc.?: No Are you currently unemployed and looking for a job?: No Are you interested in more education?: No Please select the resources that you would like help with: None Currently or been in a relationship where the following occur: No concerns reported THRIVE Score: 0 AMBER-7 AMB Questionnaire AMBER-7 Date AMBER - 7 assessed: 08/18/24 Source: Developed by Drs. Ayan Whittaker, Felicitas Dhillon, Sina Andujar and colleagues, with an educational suresh from [employer]. Review of Systems Narrative Review of Systems - Eyes: Reports cataracts. - Respiratory: No obstructive or restrictive symptoms reported per PFT results. Physical exam (Primary Care) Vital Signs: Last Vital Signs Pulse 72 04/06/25 11:00 BP 110/62 04/06/25 11:00 Pulse Ox 98 04/06/25 11:00 Oxygen Delivery Method Room Air 04/06/25 11:00 BMI result Body Mass Index 31.6 Tobacco/Smoking Status: Tobacco use Status Tobacco use date assessed 08/18/24 04/06/25 11:01 Patient Tobacco Use Status Former Tobacco user 04/06/25 11:01 Tobacco use type Cigarette 04/06/25 11:01 e-Cigarette/Vaping Use Never Used 04/06/25 11:01 Thrive Assessment: Date of Thrive Assessment Date Thrive assessed 12/01/24 04/06/25 11:01 Currently or been in a relationship where the following occur: No concerns reported Narrative Physical Exam Const General: alert; No acute distress Eyes Conjunctivae: conjunctivae normal Resp Auscultation: clear to auscultation bilaterally Cardio Rate: regular rate Rhythm: regular rhythm GI Inspection: Yes normal to inspection Extrem General: Yes normal to inspection and No edema Results AMB Hemoglobin A1c AMB Hemoglobin A1c 5.2 % Last Edit by Jess Espinal CMA on 04/06/25 11 :19 Results Reviewed Results Reviewed: Laboratory Last Values Hgb A1c (Clinic) 5.2 % (4.0-6.0) 04/06/25 11:01 Coding Level of Care Code Est Pt Level 4 (97571) Complex EM visit Add On G2211 Diagnoses Type 2 diabetes mellitus with hyperglycemia, without long-term current use of insulin E11.65 Diabetes mellitus fci insulin use: without terminal system operator use Hypercholesterolemia E78.00 S/P laparoscopic sleeve gastrectomy Z98.84 Obesity (BMI 30-39.9) E66.9 Gastroesophageal reflux disease without esophagitis K21.9 Esophagitis presence: without esophagitis Steatosis, liver K76.0 Primary osteoarthritis of right knee M17.11 Osteoarthritis type: primary Assessment & Plan Assessment & Plan (1) Type 2 diabetes mellitus with hyperglycemia: Comment: Dr. Echeverria Code(s): E11.65 - Type 2 diabetes mellitus with hyperglycemia Category: Medical Qualifiers: Diabetes mellitus fci insulin use: without terminal system operator use Qualified Code(s): E11.65 - Type 2 diabetes mellitus with hyperglycemia Plan: Decrease the amount of carbohydrate intake, pasta, bread, rice and potatoes are all sugar and that is aside from all the sweet stuff, remember that fruits are good but they are Sweet also. Hemoglobin A1c goal of less than 6.5. Patient on Trulicity at 4.5 mg once a week (2) Hypercholesterolemia: Code(s): E78.00 - Pure hypercholesterolemia, unspecified Category: Medical Plan: Avoid fried foods, chicken skin, eggs, butter margarine, pastries and meat. Be it pork or beef they have a lot of cholesterol last test was in July 2024 on atorvastatin 20 mg once a day (3) S/P laparoscopic sleeve gastrectomy: Comment: 2020 Code(s): Z98.84 - Bariatric surgery status Category: Surgical Plan: Continue to follow-up with bariatric (4) Obesity (BMI 30-39.9): Code(s): E66.9 - Obesity, unspecified Category: Medical Plan: Diet and exercise (5) GERD (gastroesophageal reflux disease): Comment: uses omeprazole prn Code(s): K21.9 - Gastro-esophageal reflux disease without esophagitis Category: Medical Qualifiers: Esophagitis presence: without esophagitis Qualified Code(s): K21.9 - Gastro-esophageal reflux disease without esophagitis Plan: Avoid the foods that causes that usually spicy foods, tomato products, juices, coffee, soda and foods that your sensitive to. After eating do not lie down, allow 3-4 hours before in lie down. And keep the head of bed above 30 degrees to avoid the acid from going up. (6) Steatosis, liver: Code(s): K76.0 - Fatty (change of) liver, not elsewhere classified Category: Medical Plan: Low-fat diet and exercise (7) Osteoarthritis of right knee: Comment: Right knee degenerative meniscal area Code(s): M17.11 - Unilateral primary osteoarthritis, right knee Category: Medical Qualifiers: Osteoarthritis type: primary Qualified Code(s): M17.11 - Unilateral primary osteoarthritis, right knee Plan: R knee surgery planned Dr. Ortiz Plan Plan Patient was informed and verbally consented to the use of an ambient scribe for clinic note documentation during this visit. 1. Diabetes Mellitus The goal for hemoglobin A1c is less than 6.5%. The patient will continue Trulicity 4.5 mg once a week. 2. Hypercholesterolemia The patient will continue atorvastatin 20 mg once a day, with the last LDL cholesterol level noted as 70 in July 2024. 3. Obesity The patient is advised to continue follow-up with bariatrics and was counseled on diet and exercise. 4. Gastroesophageal Reflux Disease The patient was advised to adhere to a low-fat diet and exercise for management of reflux. Discussion Notes I will order follow-up blood work but do not need it at this moment. I will follow up on the patient's EKG if any issues arise. I advised the patient to ensure adequate water intake, eat healthily, and continue to stay active. Patient Instructions - Continue taking Trulicity 4.5 mg once a week for diabetes. - Continue taking atorvastatin 20 mg once a day for cholesterol. - Continue to follow up with your bariatrics specialist. - Follow a low-fat diet and continue exercising to help with reflux and overall health. - Make sure to drink enough water. - Keep moving and stay active. Orders: Orders Complete Blood Count Auto Diff 3 Months E11.65 - Type 2 diabetes mellitus with hyperglycemia Creatinine Urine 3 Months E11.65 - Type 2 diabetes mellitus with hyperglycemia Microalbumin, Random (w Creat) 3 Months E11. - Type 2 diabetes mellitus with hyperglycemia UA CC w/rflx Micro + Cult 3 Months E11. - Type 2 diabetes mellitus with hyperglycemia, R30.0 - Dysuria AMB Hemoglobin A1c Today Z13.9 - Encounter for screening, unspecified Comprehensive Met. Panel 3 Months E11. - Type 2 diabetes mellitus with hyperglycemia Free T4 (Free Thyroxine) 3 Months E11. - Type 2 diabetes mellitus with hyperglycemia Lipid Panel 3 Months E11. - Type 2 diabetes mellitus with hyperglycemia, E78.00 - Pure hypercholesterolemia, unspecified Thyroid Stimulating Hormone 3 Months E11. - Type 2 diabetes mellitus with hyperglycemia Vitamin B12 and Folate 3 Months E11. - Type 2 diabetes mellitus with hyperglycemia Vitamin D 25-OH Total 3 Months E11. - Type 2 diabetes mellitus with hyperglycemia Medications: Refilled celecoxib 200 mg PO DAILY 90 caps 1RF E11. - Type 2 diabetes mellitus with hyperglycemia omeprazole 20 mg PO DAILY 90 caps 2RF K21.9 - Gastro-esophageal reflux disease without esophagitis
== END 2025-04-06 11:40 | disposition home or self-care (01) ==
LOC: HO.HMCH 10:52
PROVIDERS: PCP Internal Medicine; Visit Provider Internal Medicine
DX: E11.65 Type 2 diabetes mellitus with hyperglycemia (principal); E78.00 Pure hypercholesterolemia, unspecified; E66.9 Obesity, unspecified; Z68.31 Body mass index [BMI] 31.0-31.9, adult; Z98.84 Bariatric surgery status; K21.9 Gastro-esophageal reflux disease without esophagitis; K76.0 Fatty (change of) liver, not elsewhere classified; M17.11 Unilateral primary osteoarthritis, right knee

== ENCOUNTER → 2025-04-06 10:51 | Outpatient (BNVA) | payer OTHER, SELFPAY | PROVIDERS: PCP Internal Medicine; Visit Provider Internal Medicine | DX: K21.9 Gastro-esophageal reflux disease without esophagitis (principal); E78.00 Pure hypercholesterolemia, unspecified; E11.9 Type 2 diabetes mellitus without complications; E11.65 Type 2 diabetes mellitus with hyperglycemia; E66.9 Obesity, unspecified; K76.0 Fatty (change of) liver, not elsewhere classified; M17.11 Unilateral primary osteoarthritis, right knee; Z98.84 Bariatric surgery status; Z68.31 Body mass index [BMI] 31.0-31.9, adult | CPT/HCPCS: 83036; 99212 ==